=== PATIENT | male | born 1955 | race Caucasian/White ===

== ENCOUNTER 2018-01-09 13:11 | Emergency (ER) | payer MEDICARE, MEDICAID ==
[~2018-01-09] VITALS: Ht 195.6 cm; Wt 102.0 kg
[~2018-01-09 13:11] MED LIST: AMIT100T2 PO; ASPI-611 PO; ATOR40TA71 PO; CEPH500C5 PO; ESCI10TA54 PO; GABA-532 PO; INSU100V11 SQ; LANTUS SQ; LEVO175T7 PO; LISI-604 PO; LORA1TAB PO; MECL12.584 PO; OMEP20CA10 PO
[2018-01-09] MEDS ORDERED: ondansetron/PF 4mg/2ml inj IV ONE (13:40)
[2018-01-09] MEDS ORDERED: morphine 4 MG/ML inj SYRINge IV ONE (13:40)
[2018-01-09] MEDS ORDERED: iohexol 300mg/ml 100ml inj. ONE (13:45)
[2018-01-09 13:58] LABS: BASOPHILS % (AUTO) 0.5 % (0-1); EOSINOPHILS # (AUTO) 0.1 X10'3 (0-0.9); EOSINOPHILS % (AUTO) 1.1 % (0-6); HEMATOCRIT 34.3 % (42.0-52.0); HEMOGLOBIN 11.7 g/dl (14.0-17.9); LYMPHOCYTES # (AUTO) 2.4 X10'3 (1.1-4.8); LYMPHOCYTES % (AUTO) 27.4 % (21-51); MEAN CORPUSCULAR HEMOGLOBIN 28.9 PG (27.0-31.0); MEAN CORPUSCULAR HGB CONC 34.2 % (33.0-36.5); MEAN CORPUSCULAR VOLUME 84.3 FL (78-98); MEAN PLATELET VOLUME 9.4 FL (7.4-10.4); MONOCYTES # (AUTO) 0.5 X10'3 (0-0.9); MONOCYTES % (AUTO) 5.5 % (2-12); NEUTROPHILS # (AUTO) 5.7 X10'3 (1.8-7.7); NEUTROPHILS % (AUTO) 65.5 % (42-75); PLATELET COUNT 258 X10'3 (140-440); RED BLOOD COUNT 4.07 X10'6 (4.70-6.10); RED CELL DISTRIBUTION WIDTH 14.3 % (11.5-14.5); WHITE BLOOD COUNT 8.8 X10'3 (4.5-11.0)
[2018-01-09 14:08] LABS: PROTHROMBIN TIME 10.5 SECONDS (9.0-12.0)
[2018-01-09 14:13] LABS: ALANINE AMINOTRANSFERASE 21 U/L (12-78); ALBUMIN/GLOBULIN RATIO 0.8 (1.1-1.5); ALKALINE PHOSPHATASE 79 IU/L (46-116); ANION GAP 12 (8-16); ASPARTATE AMINO TRANSFERASE 13 U/L (10-37); BILIRUBIN,TOTAL 0.2 MG/DL (0.1-1.0); BLOOD UREA NITROGEN 18 MG/DL (7-18); BUN/CREATININE RATIO 11.6 (5.4-32.0); CHLORIDE 106 MMOL/L (99-107); CREATININE 1.55 MG/DL (0.60-1.10); GLUCOSE 322 MG/DL (70-104); POTASSIUM 3.6 MMOL/L (3.5-5.1); SODIUM 138 MMOL/L (135-145); TOTAL CARBON DIOXIDE 19.6 MMOL/L (24-32); TOTAL PROTEIN 6.8 G/DL (6.4-8.2); eGFR 46 ML/MIN
[2018-01-09 14:14] LABS: ETHANOL < 0.010 GM/DL (0.0-0.010)
[2018-01-09] MEDS ORDERED: MESSAGE TO NURSING PO SCH (14:40)
[2018-01-09 15:00] VITALS: BP 157/91
[2018-01-09] MEDS ORDERED: IBUP-1985 PO (15:57)
== END 2018-01-09 16:59 | disposition home or self-care (01) ==
LOC: ER 13:12
DX: S13.9XXA Sprain of joints and ligaments of unspecified parts of neck, initial encounter (principal); S70.02XA Contusion of left hip, initial encounter; E11.42 Type 2 diabetes mellitus with diabetic polyneuropathy; E78.00 Pure hypercholesterolemia, unspecified; I10 Essential (primary) hypertension; G89.29 Other chronic pain; I25.2 Old myocardial infarction; K21.9 Gastro-esophageal reflux disease without esophagitis; E03.9 Hypothyroidism, unspecified; Z85.038 Personal history of other malignant neoplasm of large intestine; Z90.49 Acquired absence of other specified parts of digestive tract; Z98.890 Other specified postprocedural states; Z90.89 Acquired absence of other organs; Z79.82 Long term (current) use of aspirin; Z79.4 Long term (current) use of insulin; Z79.899 Other long term (current) drug therapy; Z91.018 Allergy to other foods; V09.9XXA Pedestrian injured in unspecified transport accident, initial encounter; Y93.02 Activity, running; Y92.89 Other specified places as the place of occurrence of the external cause; Y99.8 Other external cause status
CPT/HCPCS: 36415; 70450; 71045; 71260; 72125; 73502; 73552; 73560; 74177; 80053; 80320; 85025; 85610; 96374; 96375; 99285; J2270; J2405; J7030; L0172; Q9967

== ENCOUNTER 2018-06-16 10:07 | Emergency (ER) | payer OTHER, MEDICARE, MEDICAID ==
[~2018-06-16] VITALS: Ht 195.6 cm; Wt 113.6 kg
[~2018-06-16 10:07] MED LIST changes: -CEPH500C5 PO; +IBUP-1985 PO
[2018-06-16] MEDS ORDERED: METH-360 PO (11:53)
[2018-06-16] MEDS ORDERED: IBUP-1985 PO (11:53)
[2018-06-16] MEDS ORDERED: orphenadrine citrate 60mg/2ml inj. IM ONE (11:55)
[2018-06-16] MEDS ORDERED: ketorolac tromethamine 15mg/ml inj. IM ONE (11:55)
[2018-06-16 15:09] VITALS: BP 169/107
[2018-06-16] MEDS ORDERED: HYDROcodone/acetaminophen 5mg/325mg tablet PO ONE (15:50)
== END 2018-06-16 16:19 | disposition home or self-care (01) ==
LOC: ER 10:08
DX: M54.2 Cervicalgia (principal); M54.5 Low back pain; I10 Essential (primary) hypertension; K21.9 Gastro-esophageal reflux disease without esophagitis; F41.9 Anxiety disorder, unspecified; F32.9 Major depressive disorder, single episode, unspecified; E03.9 Hypothyroidism, unspecified; E11.42 Type 2 diabetes mellitus with diabetic polyneuropathy; I25.2 Old myocardial infarction; Z91.02 Food additives allergy status; Z79.82 Long term (current) use of aspirin; Z79.4 Long term (current) use of insulin; Z79.899 Other long term (current) drug therapy; E78.00 Pure hypercholesterolemia, unspecified; Z85.038 Personal history of other malignant neoplasm of large intestine; Z90.49 Acquired absence of other specified parts of digestive tract; Z90.89 Acquired absence of other organs; V43.62XA Car passenger injured in collision with other type car in traffic accident, initial encounter; Y93.89 Activity, other specified; Y92.89 Other specified places as the place of occurrence of the external cause; Y99.8 Other external cause status
CPT/HCPCS: 70450; 72125; 72128; 72148; 96372; 99284; J1885; J2360

== ENCOUNTER 2018-09-29 23:28 | Emergency (ER) | payer MEDICARE, MEDICAID ==
[~2018-09-29] VITALS: Ht 195.6 cm; Wt 103.8 kg
[~2018-09-29 23:28] MED LIST changes: +METH-360 PO
[2018-09-29] MEDS ORDERED: normal saline 1000ML IV soln IVB ONE (23:50)
[2018-09-30 00:10] LABS: BASOPHILS # (AUTO) 0.1 X10'3 (0-0.2); BASOPHILS % (AUTO) 0.7 % (0-1); EOSINOPHILS # (AUTO) 0.1 X10'3 (0-0.9); EOSINOPHILS % (AUTO) 0.8 % (0-6); HEMATOCRIT 43.3 % (42.0-52.0); HEMOGLOBIN 14.4 g/dl (14.0-17.9); LYMPHOCYTES % (AUTO) 21.9 % (21-51); MEAN CORPUSCULAR HEMOGLOBIN 29.7 PG (27.0-31.0); MEAN CORPUSCULAR HGB CONC 33.2 g/dL (33.0-36.5); MEAN CORPUSCULAR VOLUME 89.5 FL (78-98); MEAN PLATELET VOLUME 9.4 FL (7.4-10.4); MONOCYTES # (AUTO) 0.5 X10'3 (0-0.9); MONOCYTES % (AUTO) 5.8 % (2-12); NEUTROPHILS # (AUTO) 6.6 X10'3 (1.8-7.7); NEUTROPHILS % (AUTO) 70.8 % (42-75); PLATELET COUNT 321 X10'3 (140-440); RED BLOOD COUNT 4.84 X10'6 (4.70-6.10); RED CELL DISTRIBUTION WIDTH 14.3 % (11.5-14.5); WHITE BLOOD COUNT 9.3 X10'3 (4.5-11.0)
[2018-09-30 00:19] LABS: ALANINE AMINOTRANSFERASE 30 U/L (12-78); ALBUMIN/GLOBULIN RATIO 0.9 (1.1-1.5); ALKALINE PHOSPHATASE 102 IU/L (46-116); ANION GAP 11 (8-16); ASPARTATE AMINO TRANSFERASE 29 U/L (10-37); BILIRUBIN,TOTAL 0.4 MG/DL (0.1-1.0); BLOOD UREA NITROGEN 29 MG/DL (7-18); BUN/CREATININE RATIO 17.8 (5.4-32.0); CALCIUM 9.1 MG/DL (8.5-10.1); CHLORIDE 98 MMOL/L (99-107); CREATININE 1.63 MG/DL (0.60-1.10); GLUCOSE 447 MG/DL (70-104); POTASSIUM 3.7 MMOL/L (3.5-5.1); SODIUM 133 MMOL/L (135-145); TOTAL CARBON DIOXIDE 23.9 MMOL/L (24-32); TOTAL PROTEIN 8.7 G/DL (6.4-8.2); eGFR 43 ML/MIN
[2018-09-30 00:54] LABS: PARTIAL THROMBOPLASTIN TIME 29 SECONDS (22-32); PROTHROMBIN TIME 10.3 SECONDS (9.0-12.0)
--- NOTE | 2018-09-30 01:53 | NUR ---
PT ON MED WAIT FOR SECOND LAYER OF FLUID. HE IS USING HIS PHONE AND BENDING HIS ELBOW CAUSING THE CATHETER TO OCCLUDE. PT EDUCATED ON KEEPIG HIS ARM STRAIGHT BUT IS STILL BENDING IT TO USE HIS PHONE.
[2018-09-30 02:05] VITALS: BP 150/94
== END 2018-09-30 02:06 | disposition home or self-care (01) ==
LOC: ER 23:29
DX: E11.65 Type 2 diabetes mellitus with hyperglycemia (principal); E11.42 Type 2 diabetes mellitus with diabetic polyneuropathy; E78.00 Pure hypercholesterolemia, unspecified; I10 Essential (primary) hypertension; I25.2 Old myocardial infarction; K21.9 Gastro-esophageal reflux disease without esophagitis; E03.9 Hypothyroidism, unspecified; G89.29 Other chronic pain; Z85.038 Personal history of other malignant neoplasm of large intestine; Z90.49 Acquired absence of other specified parts of digestive tract; Z98.890 Other specified postprocedural states; Z91.018 Allergy to other foods; Z79.82 Long term (current) use of aspirin; Z79.4 Long term (current) use of insulin; Z79.899 Other long term (current) drug therapy
CPT/HCPCS: 36415; 71045; 80053; 82948; 84484; 85025; 85610; 85730; 93005; 96360; 96361; 99284; J7030

== ENCOUNTER 2019-02-22 10:32 | Inpatient (IN) | payer MEDICARE, MEDICAID ==
[~2019-02-22] VITALS: Ht 195.6 cm; Wt 104.5 kg
[~2019-02-22 10:32] MED LIST changes: +CARV3.122 PO; +CITA10TA9 PO; +EMPA10TA PO; -ESCI10TA54 PO; -IBUP-1985 PO; -INSU100V11 SQ; -LANTUS SQ; -LISI-604 PO; -MECL12.584 PO; -METH-360 PO; -OMEP20CA10 PO; +OMEP20CA11 PO; +OXYB5TAB16 PO
[2019-02-22] MEDS ORDERED: ondansetron/PF 4mg/2ml inj IV ONE (12:15)
[2019-02-22 12:19] LABS: BASOPHILS # (AUTO) 0.1 X10'3 (0-0.2); BASOPHILS % (AUTO) 0.8 % (0-1); EOSINOPHILS % (AUTO) 0.4 % (0-6); HEMATOCRIT 44.3 % (42.0-52.0); LYMPHOCYTES # (AUTO) 1.9 X10'3 (1.1-4.8); LYMPHOCYTES % (AUTO) 22.3 % (21-51); MEAN CORPUSCULAR HEMOGLOBIN 29.8 PG (27.0-31.0); MEAN CORPUSCULAR VOLUME 87.6 FL (78-98); MEAN PLATELET VOLUME 8.9 FL (7.4-10.4); MONOCYTES # (AUTO) 0.6 X10'3 (0-0.9); MONOCYTES % (AUTO) 6.7 % (2-12); NEUTROPHILS # (AUTO) 5.8 X10'3 (1.8-7.7); NEUTROPHILS % (AUTO) 69.8 % (42-75); PLATELET COUNT 355 X10'3 (140-440); RED BLOOD COUNT 5.05 X10'6 (4.70-6.10); WHITE BLOOD COUNT 8.3 X10'3 (4.5-11.0)
[2019-02-22] MEDS ORDERED: normal saline 1000ML IV soln IVB ONE ×2 (12:20→13:50)
[2019-02-22 12:22] LABS: PARTIAL THROMBOPLASTIN TIME 28 SECONDS (22-32)
[2019-02-22 12:23] LABS: ALANINE AMINOTRANSFERASE 23 U/L (12-78); ALBUMIN/GLOBULIN RATIO 0.9 (1.1-1.5); ALKALINE PHOSPHATASE 86 IU/L (46-116); ANION GAP 16 (8-16); ASPARTATE AMINO TRANSFERASE 14 U/L (10-37); BILIRUBIN,TOTAL 0.7 MG/DL (0.1-1.0); BLOOD UREA NITROGEN 30 MG/DL (7-18); BUN/CREATININE RATIO 15.2 (5.4-32.0); CALCIUM 9.6 MG/DL (8.5-10.1); CHLORIDE 107 MMOL/L (99-107); CREATININE 1.98 MG/DL (0.60-1.10); GLUCOSE 51 MG/DL (70-104); POTASSIUM 3.7 MMOL/L (3.5-5.1); SODIUM 142 MMOL/L (135-145); TOTAL CARBON DIOXIDE 19.5 MMOL/L (24-32); TOTAL PROTEIN 8.6 G/DL (6.4-8.2); eGFR 34 ML/MIN
[2019-02-22] MEDS ORDERED: dextrose 50%-water 50ml dispensing syringe IV ONE ×2 (12:45→15:30)
--- NOTE | 2019-02-22 13:13 | NUR ---
Bell and applesauce given and pt alert and approp.
[2019-02-22 13:32] LABS: LIPASE 95 U/L (73-393)
[2019-02-22] MEDS ORDERED: ONDA4TAB12 PO (15:19)
[2019-02-22] MEDS ORDERED: dextrose 5%-normal saline 1,000 ML IV ONE ×2 (15:45→22:30)
[2019-02-22] MEDS ORDERED: ONDA4TAB11 PO (16:04)
[2019-02-22] MEDS ORDERED: GABA-530 PO (16:04)
[2019-02-22] MEDS ORDERED: ESCI20TA38 PO (16:04)
[2019-02-22] MEDS ORDERED: LIDO700A32 TOP (16:08)
[2019-02-22] MEDS ORDERED: HYDR-4353 PO (16:08)
[2019-02-22] MEDS ORDERED: LINA5TAB4 PO (16:08)
[2019-02-22] MEDS ORDERED: CYCL-1 PO (16:08)
[2019-02-22] MEDS ORDERED: MELO-102 PO (16:08)
[2019-02-22] MEDS ORDERED: NITR0.4T48 SL (16:08)
[2019-02-22] MEDS ORDERED: ondansetron/PF 4mg/2ml inj IV PRN (16:15)
[2019-02-22] MEDS ORDERED: magnesium hydroxide 30ml (MOM) UD suspension PO PRN (16:15)
[2019-02-22] MEDS ORDERED: mag hydrox/Alum hydrox/simeth 30ml oral suspension PO PRN (16:15)
[2019-02-22] MEDS ORDERED: acetaminophen 325mg tablet PO PRN (16:15)
[2019-02-22] MEDS ORDERED: LANTUS SQ (16:25)
[2019-02-22] MEDS ORDERED: INSU100V43 SQ (16:25)
[2019-02-22] MEDS ORDERED: METF-436 PO (16:25)
--- NOTE | 2019-02-22 17:41 | NUR ---
Received report from REFRIGERATOR CRATERDARY Jones, patient arrived on unit at 1730. Patient vital signs were obtained, telemetry initiated, skin check done, and patient was oriented to room. Patient is alert and oriented, has IV fluids running. Will continue to monitor
[2019-02-22 17:44] VITALS: BP 143/93
--- NOTE | 2019-02-22 17:53 | NUR ---
PAGER ID: [phone] MESSAGE: Jose Cruz Preciado. Patient takes Oracle at home for pain. Patient has 8/10 pain can we please get an order for Oracle. Meli [phone]
--- NOTE | 2019-02-22 18:00 | NUR ---
Patient in room PCU 3020. I have received report from DARY Garrison and had the opportunity to ask questions and assume patient care.
--- NOTE | 2019-02-22 18:24 | NUR ---
Orientee documentation: I have reviewed and agree with interventions, assessments performed and documented by Roz FOOTE. Orientee Medication Administration: For this medication-pass time frame, medication were reviewed, dispensed, administered and documented per hospital policy by Roz FOOTE.
[2019-02-22] MEDS ORDERED: cyclobenzaprine 10mg tablet PO PRN (18:30)
[2019-02-22] MEDS ORDERED: LORazepam 1 MG tablet PO PRN (18:30)
[2019-02-22] MEDS ORDERED: ondansetron 4mg rapidly disintigrating tab PO PRN (18:30)
[2019-02-22 19:00] VITALS: BP 137/70
[2019-02-22] MEDS: carVEDilol 3.125mg tablet PO SCH (20:10)
[2019-02-22] MEDS: heparin, porcine 5000 units/ml vial SQ SCH (20:10)
[2019-02-22] MEDS: amitriptyline 50mg tablet PO SCH (20:11)
[2019-02-22] MEDS: nitroGLYCERIN 0.4mg SUBLingual tab SL PRN ×2 (20:40→22:43)
[2019-02-22] MEDS: HYDROcodone/acetaminophen 10/325mg tab PO PRN (22:44)
--- NOTE | 2019-02-22 22:46 | NUR ---
I informed doctor Baker of this patient's blood sugar of 196. He is on D4NS @ 100mL/hr. I asked doctor Baker if he would like to take the patient off of D5NS and place him on the diabetes protocol. He gave me an order to decrease the patient's fluids to 50 mL/hr and does not want to place him on protocol at this time.
[2019-02-22 23:00] VITALS: BP 11/63
[2019-02-22] MEDS: gabapentin 100mg capsule PO SCH (23:17)
[2019-02-23] VITALS (11 sets, daily range): BP systolic 74–111; BP diastolic 40–72
[2019-02-23 00:52] LABS: BASOPHILS % (AUTO) 0.4 % (0-1); EOSINOPHILS # (AUTO) 0.1 X10'3 (0-0.9); EOSINOPHILS % (AUTO) 0.8 % (0-6); HEMATOCRIT 38.6 % (42.0-52.0); LYMPHOCYTES # (AUTO) 3.2 X10'3 (1.1-4.8); LYMPHOCYTES % (AUTO) 32.9 % (21-51); MEAN CORPUSCULAR HEMOGLOBIN 29.6 PG (27.0-31.0); MEAN CORPUSCULAR HGB CONC 33.7 g/dL (33.0-36.5); MEAN CORPUSCULAR VOLUME 87.9 FL (78-98); MONOCYTES # (AUTO) 0.8 X10'3 (0-0.9); MONOCYTES % (AUTO) 8.6 % (2-12); NEUTROPHILS # (AUTO) 5.7 X10'3 (1.8-7.7); NEUTROPHILS % (AUTO) 57.3 % (42-75); PLATELET COUNT 308 X10'3 (140-440); RED BLOOD COUNT 4.39 X10'6 (4.70-6.10); WHITE BLOOD COUNT 9.9 X10'3 (4.5-11.0)
[2019-02-23 00:59] LABS: ALBUMIN 3.1 G/DL (3.4-5.0); ANION GAP 14 (8-16); BLOOD UREA NITROGEN 34 MG/DL (7-18); BUN/CREATININE RATIO 19.4 (5.4-32.0); CALCIUM 8.3 MG/DL (8.5-10.1); CHLORIDE 105 MMOL/L (99-107); CREATININE 1.75 MG/DL (0.60-1.10); GLUCOSE 183 MG/DL (70-104); POTASSIUM 3.4 MMOL/L (3.5-5.1); SODIUM 143 MMOL/L (135-145); TOTAL CARBON DIOXIDE 23.8 MMOL/L (24-32); eGFR 40 ML/MIN
--- NOTE | 2019-02-23 03:11 | NUR ---
Could not edit previous D5NS @ 100 mL/hr q10hr once order, so, I put in a new order for D5NS 50 mL/hr once. I double clicked it to administer and will dc the order after this current bag is complete.
--- NOTE | 2019-02-23 05:00 | NUR ---
Patient has been having low BP's but after retaking them it goes up to a normal range. Upon having the patient sit his BP dropped to 74/48 (56), laying was 107/64 (71). Upon trying to have patient stand he became too dizzy and had to sit down. Could not obtain standing BP. Will pass this information to daysinft nurse.
--- NOTE | 2019-02-23 06:24 | NUR ---
Problems reprioritized. Patient report given, questions answered & plan of care reviewed with DARY Tovar.
--- NOTE | 2019-02-23 06:30 | NUR ---
Patient in room PCU 3017. I have received report from Marguerite FOOTE and had the opportunity to ask questions and assume patient care.
[2019-02-23] MEDS: carVEDilol 3.125mg tablet PO SCH ×2 (07:35→21:36)
[2019-02-23] MEDS: levoTHYROXINE 175mcg tablet PO SCH (07:35)
[2019-02-23] MEDS: gabapentin 100mg capsule PO SCH ×2 (07:35→16:38)
[2019-02-23] MEDS: citalopram 20mg tablet PO SCH (07:35)
[2019-02-23] MEDS: aspirin 81mg tablet.DR PO SCH (07:36)
[2019-02-23] MEDS: atorvastatin 20mg tablet PO SCH (07:36)
[2019-02-23] MEDS: heparin, porcine 5000 units/ml vial SQ SCH ×2 (07:38→21:36)
[2019-02-23] MEDS ORDERED: dextrose 5%-normal saline 1,000 ML IV SCH ×2 (07:45→18:00)
--- NOTE | 2019-02-23 07:58 | NUR ---
Page Dr. Chavarria PAGER ID: [phone] MESSAGE: RM 3020 Timothy Billingsley: Patients K is 3.4, can we order replacement? Thank you. Johanna stokes [phone]
[2019-02-23] MEDS ORDERED: potassium Cl 20 mEq SR tablet PO PRN (08:00)
[2019-02-23] MEDS ORDERED: magnesium 4gm in 100ml NS 100 ML IV PRN (08:00)
[2019-02-23] MEDS ORDERED: potassium CL 10mEq/100ml bag 100 ML IV PRN (08:00)
[2019-02-23] MEDS ORDERED: magnesium Cl slow-release 64mg tablet PO PRN (08:00)
[2019-02-23] MEDS: potassium Cl 20 mEq SR tablet PO PRN ×3 (08:39→16:38)
[2019-02-23] MEDS: HYDROcodone/acetaminophen 10/325mg tab PO PRN ×2 (11:24→19:59)
[2019-02-23] MEDS: normal saline 1000ml 1,000 ML IV SCH (12:42)
--- NOTE | 2019-02-23 18:03 | NUR ---
Orientee documentation: I have reviewed and agree with all interventions, assessments performed and documented by Johanna FOOTE. Orientee Medication Administration: For this medication-pass time frame, all medication were reviewed, dispensed, administered and documented per hospital policy by Johanna FOOTE.
--- NOTE | 2019-02-23 18:40 | NUR ---
Problems reprioritized. Patient report given, questions answered & plan of care reviewed with Shana FOOTE.
--- NOTE | 2019-02-23 19:00 | NUR ---
Patient in room PCU 3020. I have received report from La FOOTE and had the opportunity to ask questions and assume patient care. Patient finishing dinner, will continue to monitor.
[2019-02-23] MEDS: amitriptyline 50mg tablet PO SCH (21:37)
[2019-02-24] VITALS (7 sets, daily range): BP systolic 90–127; BP diastolic 60–73
[2019-02-24] MEDS: gabapentin 100mg capsule PO SCH ×3 (00:05→16:19)
[2019-02-24] MEDS: normal saline 1000ml 1,000 ML IV SCH ×2 (01:38→15:26)
--- NOTE | 2019-02-24 06:05 | NUR ---
Problems reprioritized. Patient report given, questions answered & plan of care reviewed with La FOOTE.
[2019-02-24 06:09] LABS: BASOPHILS # (AUTO) 0.1 X10'3 (0-0.2); EOSINOPHILS # (AUTO) 0.2 X10'3 (0-0.9); EOSINOPHILS % (AUTO) 2.8 % (0-6); HEMATOCRIT 34.8 % (42.0-52.0); HEMOGLOBIN 11.9 g/dl (14.0-17.9); LYMPHOCYTES # (AUTO) 3.2 X10'3 (1.1-4.8); LYMPHOCYTES % (AUTO) 48.9 % (21-51); MEAN CORPUSCULAR HEMOGLOBIN 29.8 PG (27.0-31.0); MEAN CORPUSCULAR HGB CONC 34.2 g/dL (33.0-36.5); MEAN CORPUSCULAR VOLUME 87.1 FL (78-98); MEAN PLATELET VOLUME 8.9 FL (7.4-10.4); MONOCYTES # (AUTO) 0.5 X10'3 (0-0.9); MONOCYTES % (AUTO) 8.4 % (2-12); NEUTROPHILS # (AUTO) 2.5 X10'3 (1.8-7.7); NEUTROPHILS % (AUTO) 38.9 % (42-75); PLATELET COUNT 237 X10'3 (140-440); RED CELL DISTRIBUTION WIDTH 14.9 % (11.5-14.5); WHITE BLOOD COUNT 6.5 X10'3 (4.5-11.0)
--- NOTE | 2019-02-24 06:21 | NUR ---
Patient in room PCU 3020. I have received report from Nury FOOTE and had the opportunity to ask questions and assume patient care.
[2019-02-24 06:25] LABS: ALBUMIN 2.8 G/DL (3.4-5.0); ANION GAP 9 (8-16); BLOOD UREA NITROGEN 20 MG/DL (7-18); BUN/CREATININE RATIO 18.5 (5.4-32.0); CALCIUM 8.2 MG/DL (8.5-10.1); CHLORIDE 110 MMOL/L (99-107); CREATININE 1.08 MG/DL (0.60-1.10); GLUCOSE 124 MG/DL (70-104); POTASSIUM 4.2 MMOL/L (3.5-5.1); SODIUM 142 MMOL/L (135-145); TOTAL CARBON DIOXIDE 22.8 MMOL/L (24-32); eGFR 69 ML/MIN
[2019-02-24] MEDS: HYDROcodone/acetaminophen 10/325mg tab PO PRN (07:11)
[2019-02-24] MEDS: aspirin 81mg tablet.DR PO SCH (07:12)
[2019-02-24] MEDS: atorvastatin 20mg tablet PO SCH (07:12)
[2019-02-24] MEDS: carVEDilol 3.125mg tablet PO SCH ×2 (07:12→20:44)
[2019-02-24] MEDS: citalopram 20mg tablet PO SCH (07:12)
[2019-02-24] MEDS: levoTHYROXINE 175mcg tablet PO SCH (07:12)
[2019-02-24] MEDS: heparin, porcine 5000 units/ml vial SQ SCH ×2 (07:13→20:46)
--- NOTE | 2019-02-24 10:43 | NUR ---
Page Dr. Chavarria. PAGER ID: [phone] MESSAGE: [id number] Timothy Billingsley: Patients blood sugar was 192, current orders are to accucheck q2h. Do you want to put him on protocol? Thank you. Johanna [phone].
[2019-02-24] MEDS ORDERED: acetaminophen 325mg tablet PO PRN (16:35)
--- NOTE | 2019-02-24 18:18 | NUR ---
Patient in room PCU 3020. I have received report from DARY Tovar and DARY Spencer and had the opportunity to ask questions and assume patient care.
--- NOTE | 2019-02-24 18:19 | NUR ---
Problems reprioritized. Patient report given, questions answered & plan of care reviewed with Yahaira FOOTE.
[2019-02-24] MEDS: amitriptyline 50mg tablet PO SCH (20:44)
[2019-02-25] MEDS: gabapentin 100mg capsule PO SCH ×2 (00:52→07:49)
[2019-02-25 03:00] VITALS: BP 111/67
[2019-02-25] MEDS: normal saline 1000ml 1,000 ML IV SCH (05:59)
[2019-02-25 06:00] VITALS: BP 132/84
[2019-02-25 06:03] LABS: BASOPHILS # (AUTO) 0.1 X10'3 (0-0.2); BASOPHILS % (AUTO) 1.3 % (0-1); EOSINOPHILS # (AUTO) 0.2 X10'3 (0-0.9); HEMATOCRIT 36.7 % (42.0-52.0); HEMOGLOBIN 12.5 g/dl (14.0-17.9); LYMPHOCYTES # (AUTO) 2.6 X10'3 (1.1-4.8); LYMPHOCYTES % (AUTO) 45.1 % (21-51); MEAN CORPUSCULAR HEMOGLOBIN 29.8 PG (27.0-31.0); MEAN CORPUSCULAR VOLUME 87.6 FL (78-98); MEAN PLATELET VOLUME 8.8 FL (7.4-10.4); MONOCYTES # (AUTO) 0.5 X10'3 (0-0.9); MONOCYTES % (AUTO) 8.9 % (2-12); NEUTROPHILS # (AUTO) 2.4 X10'3 (1.8-7.7); NEUTROPHILS % (AUTO) 41.7 % (42-75); PLATELET COUNT 235 X10'3 (140-440); RED BLOOD COUNT 4.19 X10'6 (4.70-6.10); WHITE BLOOD COUNT 5.8 X10'3 (4.5-11.0)
[2019-02-25 06:11] LABS: ALBUMIN 2.9 G/DL (3.4-5.0); ANION GAP 7 (8-16); BLOOD UREA NITROGEN 19 MG/DL (7-18); BUN/CREATININE RATIO 15.4 (5.4-32.0); CALCIUM 8.3 MG/DL (8.5-10.1); CHLORIDE 109 MMOL/L (99-107); CREATININE 1.23 MG/DL (0.60-1.10); GLUCOSE 134 MG/DL (70-104); POTASSIUM 4.4 MMOL/L (3.5-5.1); SODIUM 141 MMOL/L (135-145); TOTAL CARBON DIOXIDE 25.1 MMOL/L (24-32); eGFR 59 ML/MIN
--- NOTE | 2019-02-25 06:15 | NUR ---
Problems reprioritized. Patient report given, questions answered & plan of care reviewed with DARY Spencer.
--- NOTE | 2019-02-25 06:23 | NUR ---
Patient in room PCU 3020. I have received report from Yahaira FOOTE and had the opportunity to ask questions and assume patient care.
[2019-02-25] MEDS: atorvastatin 20mg tablet PO SCH (07:50)
[2019-02-25] MEDS: citalopram 20mg tablet PO SCH (07:50)
[2019-02-25] MEDS: levoTHYROXINE 175mcg tablet PO SCH (07:50)
[2019-02-25] MEDS: carVEDilol 3.125mg tablet PO SCH (07:50)
[2019-02-25] MEDS: aspirin 81mg tablet.DR PO SCH (07:50)
[2019-02-25] MEDS: heparin, porcine 5000 units/ml vial SQ SCH (07:51)
[2019-02-25 08:00] VITALS: BP_SYST 115; BP_SYST 117; BP_SYST 123; BP_DIAS 71; BP_DIAS 75; BP_DIAS 83
[2019-02-25 11:00] VITALS: BP 117/71
[2019-02-25] MEDS ORDERED: LORA1TAB PO (12:00)
[2019-02-25] MEDS ORDERED: LANTUS SQ (12:00)
[2019-02-25] MEDS ORDERED: METF-436 PO (12:00)
--- NOTE | 2019-02-25 14:40 | NUR ---
Patient stable for discharge per MD orders. All discharge instructions reviewed with patient and all questions answered. New prescriptions called into patients preferred pharmacy. PIV & monitor worker discontinued. Belongings collected and sent with patient. Patient home in private vehicle. Patient wheeled to lobby by primary RN.
== END 2019-02-25 14:58 | disposition home health service (06) | DRG 392 ==
LOC: ER 10:32 → PCU 3S 17:22 → OBSVTOIN 17:22 → CMPBEDREQ 19:43
PROVIDERS: ADMIT Family Medicine; ATTEND Internal Medicine
DX: K52.9 Noninfective gastroenteritis and colitis, unspecified (principal); N17.9 Acute kidney failure, unspecified; E87.6 Hypokalemia; E11.649 Type 2 diabetes mellitus with hypoglycemia without coma; E11.22 Type 2 diabetes mellitus with diabetic chronic kidney disease; E11.42 Type 2 diabetes mellitus with diabetic polyneuropathy; E78.00 Pure hypercholesterolemia, unspecified; E78.5 Hyperlipidemia, unspecified; E86.0 Dehydration; E86.9 Volume depletion, unspecified; E89.0 Postprocedural hypothyroidism; G89.29 Other chronic pain; M54.9 Dorsalgia, unspecified; R07.89 Other chest pain; F32.9 Major depressive disorder, single episode, unspecified; F41.9 Anxiety disorder, unspecified; I12.9 Hypertensive chronic kidney disease with stage 1 through stage 4 chronic kidney disease, or unspecified chronic kidney disease; K21.9 Gastro-esophageal reflux disease without esophagitis; N18.9 Chronic kidney disease, unspecified; Z79.4 Long term (current) use of insulin; Z79.899 Other long term (current) drug therapy; Z85.038 Personal history of other malignant neoplasm of large intestine; Z85.6 Personal history of leukemia; Z85.850 Personal history of malignant neoplasm of thyroid; Z91.018 Allergy to other foods; Z90.49 Acquired absence of other specified parts of digestive tract; Z82.49 Family history of ischemic heart disease and other diseases of the circulatory system; Z80.41 Family history of malignant neoplasm of ovary
CPT/HCPCS: 36415; 71045; 80048; 80053; 82948; 83690; 84484; 85025; 85610; 85730; 87081; 93005; 96361; 96374; 96375; 96376; 97162; 97530; 99285; G0378; J1644; J2405; J7030; J7042

== ENCOUNTER 2019-04-20 20:44 | Observation (INO) | payer MEDICARE, MEDICAID ==
[~2019-04-20] VITALS: Ht 195.6 cm; Wt 117.0 kg
[~2019-04-20 20:44] MED LIST changes: -CITA10TA9 PO; -EMPA10TA PO; +ESCI20TA38 PO; +GABA-530 PO; -GABA-532 PO; +INSU100V43 SQ; +LANTUS SQ; +METF-436 PO; +NITR0.4T48 SL; -OMEP20CA11 PO; +ONDA4TAB11 PO; -OXYB5TAB16 PO
[2019-04-20] MEDS ORDERED: ketorolac tromethamine 15mg/ml inj. IM ONE (21:50)
[2019-04-20] MEDS ORDERED: cyclobenzaprine 10mg tablet PO ONE (21:50)
[2019-04-20 22:04] LABS: BASOPHILS # (AUTO) 0.1 X10'3 (0-0.2); BASOPHILS % (AUTO) 0.4 % (0-1); EOSINOPHILS # (AUTO) 0.3 X10'3 (0-0.9); HEMATOCRIT 41.6 % (42.0-52.0); HEMOGLOBIN 14.1 g/dl (14.0-17.9); LYMPHOCYTES # (AUTO) 5.9 X10'3 (1.1-4.8); LYMPHOCYTES % (AUTO) 37.1 % (21-51); MEAN CORPUSCULAR HEMOGLOBIN 30.1 PG (27.0-31.0); MEAN CORPUSCULAR HGB CONC 33.9 g/dL (33.0-36.5); MEAN CORPUSCULAR VOLUME 88.8 FL (78-98); MEAN PLATELET VOLUME 8.2 FL (7.4-10.4); MONOCYTES % (AUTO) 6.5 % (2-12); NEUTROPHILS # (AUTO) 8.6 X10'3 (1.8-7.7); PLATELET COUNT 365 X10'3 (140-440); RED BLOOD COUNT 4.69 X10'6 (4.70-6.10); RED CELL DISTRIBUTION WIDTH 14.9 % (11.5-14.5); WHITE BLOOD COUNT 15.8 X10'3 (4.5-11.0)
[2019-04-20 22:19] LABS: ALANINE AMINOTRANSFERASE 37 U/L (12-78); ALBUMIN 3.9 G/DL (3.4-5.0); ALBUMIN/GLOBULIN RATIO 0.8 (1.1-1.5); ALKALINE PHOSPHATASE 100 IU/L (46-116); ANION GAP 12 (8-16); ASPARTATE AMINO TRANSFERASE 34 U/L (10-37); BILIRUBIN,TOTAL 0.3 MG/DL (0.1-1.0); BLOOD UREA NITROGEN 30 MG/DL (7-18); BUN/CREATININE RATIO 21.4 (5.4-32.0); CALCIUM 9.1 MG/DL (8.5-10.1); CHLORIDE 109 MMOL/L (99-107); POTASSIUM 3.5 MMOL/L (3.5-5.1); SODIUM 145 MMOL/L (135-145); TOTAL CARBON DIOXIDE 24.1 MMOL/L (24-32); TOTAL PROTEIN 8.9 G/DL (6.4-8.2); eGFR 51 ML/MIN
[2019-04-20 22:26] LABS: GLUCOSE 36 MG/DL (70-104)
[2019-04-20] MEDS ORDERED: dextrose 50%-water 50ml dispensing syringe IV ONE ×3 (22:29→23:40)
[2019-04-20] MEDS ORDERED: dextrose ORAL solution 15 GM/59 ML bottle PO ONE (22:30)
[2019-04-20] MEDS ORDERED: normal saline 1000ML IV soln IVB ONE (23:15)
[2019-04-21] VITALS (8 sets, daily range): BP systolic 103–150; BP diastolic 57–93
[2019-04-21] MEDS ORDERED: sodium bicarbonate (8.4%) inj. 100 MEQ in dextrose 5%-water 900 ML IV ONE (00:25)
[2019-04-21] MEDS ORDERED: sodium bicarbonate (8.4%) inj. 100 MEQ in dextrose 5%-water 1,000 ML IV ONE (00:28)
[2019-04-21] MEDS ORDERED: Dextrose 10%-water IV solution 1,000 ML IV ONE (00:40)
[2019-04-21] MEDS ORDERED: LINA5TAB4 (00:57)
[2019-04-21] MEDS ORDERED: LORA-268 (00:57)
[2019-04-21] MEDS ORDERED: METF-438 PO (00:57)
[2019-04-21] MEDS ORDERED: ondansetron/PF 4mg/2ml inj IV PRN (01:25)
[2019-04-21] MEDS ORDERED: HYDROcodone/acetaminophen 5mg/325mg tablet PO PRN (01:25)
[2019-04-21] MEDS ORDERED: mag hydrox/Alum hydrox/simeth 30ml oral suspension PO PRN (01:25)
[2019-04-21] MEDS ORDERED: acetaminophen 325mg tablet PO PRN ×2 (01:25)
[2019-04-21] MEDS ORDERED: dextrose ORAL solution 15 GM/59 ML bottle PO PRN ×2 (01:25)
[2019-04-21] MEDS ORDERED: glucagon, human recombinant 1mg kit SUBCUT PRN (01:25)
[2019-04-21] MEDS ORDERED: MESSAGE TO PHARMACY PO ONE (01:25)
[2019-04-21] MEDS ORDERED: dextrose 50%-water 50ml dispensing syringe IV PRN ×2 (01:25)
[2019-04-21] MEDS ORDERED: dextrose 50%-water 50ml dispensing syringe IV ONE (01:28)
[2019-04-21] MEDS: dextrose 5%-1/2 normal saline 1,000 ML IV SCH ×2 (01:40→14:13)
[2019-04-21 01:49] LABS: HEMOGLOBIN A1C 9.3 % (4.5-6.2)
[2019-04-21] MEDS ORDERED: ondansetron 4mg rapidly disintigrating tab PO PRN (02:00)
[2019-04-21] MEDS: HYDROcodone/acetaminophen 10/325mg tab PO PRN ×3 (03:21→13:12)
--- NOTE | 2019-04-21 03:47 | NUR ---
Patient in room PCU 3012. I have received report from Francisco J FOOTE and had the opportunity to ask questions and assume patient care.
[2019-04-21] MEDS ORDERED: pneumococcal 23-VAL P-sac vacc 25 mcg/0.5ml vial IMVAC ONE (05:25)
[2019-04-21] MEDS ORDERED: FLU VACC QS2019-20 36MOS UP/PF 60 MCG/0.5 ML SYRINGE IMVAC ONE (05:25)
--- NOTE | 2019-04-21 06:11 | NUR ---
Orientee documentation: I have reviewed and agree with all interventions, assessments performed and documented by Fer FOOTE.
--- NOTE | 2019-04-21 06:11 | NUR ---
Problems reprioritized. Patient report given, questions answered & plan of care reviewed with Meli FOOTE.
[2019-04-21] MEDS: enoxaparin 40mg/0.4ml syringe SQ SCH (07:28)
[2019-04-21] MEDS: levoTHYROXINE 175mcg tablet PO SCH (07:29)
[2019-04-21] MEDS: carVEDilol 3.125mg tablet PO SCH ×2 (07:30→21:17)
[2019-04-21] MEDS: atorvastatin 20mg tablet PO SCH (07:34)
[2019-04-21] MEDS: aspirin 81mg tablet.DR PO SCH (07:35)
[2019-04-21] MEDS: gabapentin 100mg capsule PO SCH ×2 (07:36→15:15)
[2019-04-21] MEDS: ESCITALOPRAM OXALATE 5 MG TABLET PO SCH (13:03)
--- NOTE | 2019-04-21 16:09 | NUR ---
DM consult: Pt with A1c 9.3 down from 12.4 in January of this year per records. Pt seen at bedside states he hasn't made any significant changes to better manage his DM. Pt states he takes his DM meds per rx and tries to walk when he can for exercise. Pt provided with written and verbal DM education with referral to outpatient DM class and RD contact information. Pt expressed enthusiasm about attending outpatient class with CDEs. Pt currently on CHO controlled diet documented with 100% PO intake likely meeting nutrient needs. Pt agrees to double protein TID for satiety, d/w dietary. Pt states he is allergic to strawberries and chocolate and denies any difficulty chewing or swallowing. [facility] 04/19, pt requests power pudding with dinner tonight, d/w dietary. Will continue to follow. Addendum: 04/21/19 at [address] Amended: Links added.
--- NOTE | 2019-04-21 18:02 | NUR ---
Problems reprioritized. Patient report given, questions answered & plan of care reviewed with
--- NOTE | 2019-04-21 18:03 | NUR ---
Student documentation: I have reviewed and agree with all interventions, assessments, performed and medications documented by Deepak RN.
--- NOTE | 2019-04-21 18:16 | NUR ---
Patient in room PCU 3012. I have received report from Meli FOOTE and had the opportunity to ask questions and assume patient care.
[2019-04-21] MEDS ORDERED: tamsulosin 0.4mg capsule PO SCH (21:00)
[2019-04-21] MEDS ORDERED: amitriptyline 50mg tablet PO SCH (21:00)
[2019-04-22] MEDS: gabapentin 100mg capsule PO SCH ×2 (00:07→07:54)
[2019-04-22 02:00] VITALS: BP 97/73
[2019-04-22 05:24] LABS: BASOPHILS % (AUTO) 0.5 % (0-1); EOSINOPHILS # (AUTO) 0.2 X10'3 (0-0.9); EOSINOPHILS % (AUTO) 2.2 % (0-6); HEMATOCRIT 34.6 % (42.0-52.0); HEMOGLOBIN 11.7 g/dl (14.0-17.9); LYMPHOCYTES # (AUTO) 2.6 X10'3 (1.1-4.8); LYMPHOCYTES % (AUTO) 28.3 % (21-51); MEAN CORPUSCULAR HEMOGLOBIN 30.2 PG (27.0-31.0); MEAN CORPUSCULAR HGB CONC 33.9 g/dL (33.0-36.5); MEAN CORPUSCULAR VOLUME 89.3 FL (78-98); MEAN PLATELET VOLUME 8.7 FL (7.4-10.4); MONOCYTES # (AUTO) 0.8 X10'3 (0-0.9); MONOCYTES % (AUTO) 8.3 % (2-12); NEUTROPHILS # (AUTO) 5.5 X10'3 (1.8-7.7); NEUTROPHILS % (AUTO) 60.7 % (42-75); PLATELET COUNT 260 X10'3 (140-440); RED BLOOD COUNT 3.88 X10'6 (4.70-6.10); RED CELL DISTRIBUTION WIDTH 14.6 % (11.5-14.5); WHITE BLOOD COUNT 9.1 X10'3 (4.5-11.0)
[2019-04-22 05:35] LABS: ALBUMIN 2.9 G/DL (3.4-5.0); ANION GAP 6 (8-16); BLOOD UREA NITROGEN 28 MG/DL (7-18); BUN/CREATININE RATIO 22.6 (5.4-32.0); CALCIUM 7.8 MG/DL (8.5-10.1); CHLORIDE 105 MMOL/L (99-107); CREATININE 1.24 MG/DL (0.60-1.10); GLUCOSE 222 MG/DL (70-104); POTASSIUM 4.6 MMOL/L (3.5-5.1); SODIUM 138 MMOL/L (135-145); eGFR 59 ML/MIN
[2019-04-22] MEDS: dextrose 5%-1/2 normal saline 1,000 ML IV SCH ×2 (05:50→06:44)
[2019-04-22 06:00] VITALS: BP 107/65
--- NOTE | 2019-04-22 06:11 | NUR ---
Problems reprioritized. Patient report given, questions answered & plan of care reviewed with Bon FOOTE.
[2019-04-22] MEDS: aspirin 81mg tablet.DR PO SCH (07:53)
[2019-04-22] MEDS: carVEDilol 3.125mg tablet PO SCH (07:54)
[2019-04-22] MEDS: levoTHYROXINE 175mcg tablet PO SCH (07:54)
[2019-04-22] MEDS: atorvastatin 20mg tablet PO SCH (07:54)
[2019-04-22] MEDS: ESCITALOPRAM OXALATE 5 MG TABLET PO SCH (07:55)
[2019-04-22] MEDS: enoxaparin 40mg/0.4ml syringe SQ SCH (07:57)
[2019-04-22] MEDS: HYDROcodone/acetaminophen 10/325mg tab PO PRN (07:58)
[2019-04-22 08:00] VITALS: BP_SYST 100; BP_SYST 102; BP_SYST 115; BP_DIAS 58; BP_DIAS 71; BP_DIAS 75
--- NOTE | 2019-04-22 08:15 | NUR ---
Notified of MRSA+ nares result. PAGER ID: [phone] MESSAGE: [id number] Rupa Billingsley MRSA+ nares. FYI. 0392 Veena Crockett
--- NOTE | 2019-04-22 10:01 | NUR ---
Per Dr Spencer, d/c IVF. FSBG 1-2 hrs until FSBG stable, then likely to discharge. Notified primary RN. IVF stopped. Pt walking with PT.
[2019-04-22] MEDS ORDERED: HYDR-4383 PO (10:46)
[2019-04-22] MEDS ORDERED: FLO0.4C PO (10:46)
--- NOTE | 2019-04-22 10:53 | NUR ---
Dr Tj reyes with DCing with blood sugar at 307.
[2019-04-22 11:00] VITALS: BP 93/64
--- NOTE | 2019-04-22 11:10 | NUR ---
Ride to pick-up patient will not arrive until 1500 per patient.
--- NOTE | 2019-04-22 13:29 | NUR ---
PAGER ID: [phone] MESSAGE: [id number] Timothy Jose Cruz I saw on the discharge meds you put [place]'s 5's. Can I get script from you for the patient? His ride will be here at 1500. DARY Crockett Ext [phone]
--- NOTE | 2019-04-22 14:32 | NUR ---
PAGER ID: [phone] MESSAGE: [id number] Timothy Billingsley can he get [place] script from you? I see you wrote that under new discharge meds. DARY Crockett Ext [phone]
--- NOTE | 2019-04-22 14:35 | NUR ---
Discharged. PIV taken out and tele off and returned. Educated on meds, follow-up and DM survival skills mainly hypoglycemia management. Walked out to front [facility] and ride will pick him up. Stable for DC per MD. Addendum: 04/22/19 at 1506 by Bon Lee RN Flomax prescription sent electronically [facility] [address]. Addendum: 04/22/19 at 1507 by Bon Lee RN Left with belongings.
== END 2019-04-22 15:44 | disposition home health service (06) ==
LOC: ER 20:45 → ED HOLD 04-21 01:46 → EDBEDREQ 04-21 01:50 → CMPBEDREQ 04-21 02:52 → PCU 3S 04-21 03:04
PROVIDERS: ADMIT Hospitalist; ATTEND Family Medicine
DX: M54.5 Low back pain (principal); G89.29 Other chronic pain; E11.649 Type 2 diabetes mellitus with hypoglycemia without coma; E11.42 Type 2 diabetes mellitus with diabetic polyneuropathy; F41.9 Anxiety disorder, unspecified; F32.9 Major depressive disorder, single episode, unspecified; E03.9 Hypothyroidism, unspecified; E78.00 Pure hypercholesterolemia, unspecified; I10 Essential (primary) hypertension; R42 Dizziness and giddiness; K21.9 Gastro-esophageal reflux disease without esophagitis; Z79.82 Long term (current) use of aspirin; Z79.899 Other long term (current) drug therapy; Z85.038 Personal history of other malignant neoplasm of large intestine; Z23 Encounter for immunization
CPT/HCPCS: 36415; 71046; 72100; 80048; 80053; 82948; 83036; 83605; 85025; 87081; 90732; 93005; 96361; 96372; 96374; 96376; 97110; 97116; 97163; 99284; G0008; G0009; G0378; J1885; Q2037; J1650

== ENCOUNTER 2019-05-17 10:17 | Inpatient (IN) | payer MEDICARE, MEDICAID ==
[~2019-05-17] VITALS: Ht 195.6 cm; Wt 113.6 kg
[~2019-05-17 10:17] MED LIST changes: +FLO0.4C PO; +HYDR-4383 PO; -INSU100V43 SQ; -LANTUS SQ; -LORA1TAB PO; -METF-436 PO; +METF-438 PO; -NITR0.4T48 SL
--- NOTE | 2019-05-17 10:34 | NUR ---
came to er saying he felt his blood surger was low blood sugar checked 49 notified wanted juice to be given
--- NOTE | 2019-05-17 10:47 | NUR ---
rechecked bs 44
[2019-05-17] MEDS ORDERED: ondansetron/PF 4mg/2ml inj IV ONE (10:55)
[2019-05-17] MEDS ORDERED: dextrose 50%-water 50ml dispensing syringe IV ONE ×2 (10:55→12:40)
[2019-05-17 11:20] LABS: BASOPHILS # (AUTO) 0.1 X10'3 (0-0.2); BASOPHILS % (AUTO) 0.7 % (0-1); EOSINOPHILS # (AUTO) 0.2 X10'3 (0-0.9); EOSINOPHILS % (AUTO) 1.5 % (0-6); HEMATOCRIT 32.7 % (42.0-52.0); LYMPHOCYTES # (AUTO) 4.3 X10'3 (1.1-4.8); LYMPHOCYTES % (AUTO) 41.8 % (21-51); MEAN CORPUSCULAR HEMOGLOBIN 29.7 PG (27.0-31.0); MEAN CORPUSCULAR HGB CONC 33.7 g/dL (33.0-36.5); MEAN CORPUSCULAR VOLUME 88.1 FL (78-98); MEAN PLATELET VOLUME 8.6 FL (7.4-10.4); MONOCYTES # (AUTO) 0.7 X10'3 (0-0.9); MONOCYTES % (AUTO) 7.1 % (2-12); NEUTROPHILS % (AUTO) 48.9 % (42-75); PLATELET COUNT 276 X10'3 (140-440); RED BLOOD COUNT 3.72 X10'6 (4.70-6.10); RED CELL DISTRIBUTION WIDTH 14.4 % (11.5-14.5); WHITE BLOOD COUNT 10.2 X10'3 (4.5-11.0)
--- NOTE | 2019-05-17 11:20 | NUR ---
KIKA DELATORRE SAID IS WAS OK TO FEED PATIENT: ETELVINA ANAND BS 122 AFTER AMP OF D50. PATIENT PROVIDED 240 ML WHOLE MILK AND A SANDWHICH: PATIENT DRINKING THE MILK
[2019-05-17 11:30] LABS: ALANINE AMINOTRANSFERASE 28 U/L (12-78); ALBUMIN/GLOBULIN RATIO 0.7 (1.1-1.5); ALKALINE PHOSPHATASE 89 IU/L (46-116); ANION GAP 11 (8-16); ASPARTATE AMINO TRANSFERASE 27 U/L (10-37); BILIRUBIN,TOTAL 0.2 MG/DL (0.1-1.0); BLOOD UREA NITROGEN 29 MG/DL (7-18); CALCIUM 8.2 MG/DL (8.5-10.1); CHLORIDE 107 MMOL/L (99-107); CREATININE 1.16 MG/DL (0.60-1.10); MAGNESIUM 1.5 MG/DL (1.5-2.4); SODIUM 142 MMOL/L (135-145); TOTAL CARBON DIOXIDE 23.7 MMOL/L (24-32); TOTAL PROTEIN 7.2 G/DL (6.4-8.2); eGFR 64 ML/MIN
[2019-05-17 11:31] LABS: GLUCOSE 30 MG/DL (70-104); POTASSIUM 2.9 MMOL/L (3.5-5.1)
[2019-05-17] MEDS ORDERED: potassium Cl 20 mEq SR tablet PO STA (11:33)
[2019-05-17] MEDS ORDERED: CefTRIAXone/D5W-Rocephin 1gm 50 ML IV ONE (11:35)
[2019-05-17] MEDS ORDERED: potassium Cl 10 mEq/100mL bag IV ONE (11:35)
[2019-05-17] MEDS ORDERED: CEPH250T PO (11:36)
--- NOTE | 2019-05-17 11:40 | NUR ---
PATIENT ATE HALF OF A SANDWHICH AND 240 ML MILK
[2019-05-17] MEDS ORDERED: dextrose 5%-1/2 normal saline 1,000 ML IV SCH (11:50)
[2019-05-17] MEDS ORDERED: magnesium 2GM in 50ml NS 50 ML IV ONE (12:45)
[2019-05-17] MEDS ORDERED: DEXTROSE 10 % AND 0.45 % NACL 1,000 ML IV SCH (12:45)
[2019-05-17] MEDS ORDERED: ringers solution, lacted 1,000 ML IV SCH (12:45)
[2019-05-17] MEDS ORDERED: insulin Lispro (HumaLOG) vial - multi-dose SQ SCH (13:10)
[2019-05-17] MEDS ORDERED: potassium CL 10mEq/100ml bag 100 ML IV PRN ×2 (13:10)
[2019-05-17] MEDS ORDERED: glucagon, human recombinant 1mg kit SUBCUT PRN (13:10)
[2019-05-17] MEDS ORDERED: potassium Cl 20 mEq SR tablet PO PRN ×2 (13:10)
[2019-05-17] MEDS ORDERED: ondansetron/PF 4mg/2ml inj IV PRN (13:10)
[2019-05-17] MEDS ORDERED: magnesium 4gm in 100ml NS 100 ML IV PRN (13:10)
[2019-05-17] MEDS ORDERED: magnesium 2GM in 50ml NS 50 ML IV PRN (13:10)
[2019-05-17] MEDS ORDERED: MESSAGE TO PHARMACY PO ONE (13:10)
[2019-05-17] MEDS ORDERED: dextrose 50%-water 50ml dispensing syringe IV PRN ×2 (13:10)
[2019-05-17] MEDS ORDERED: acetaminophen 325mg tablet PO PRN (13:10)
[2019-05-17] MEDS ORDERED: magnesium hydroxide 30ml (MOM) UD suspension PO PRN (13:10)
[2019-05-17] MEDS ORDERED: dextrose ORAL solution 15 GM/59 ML bottle PO PRN ×2 (13:10)
[2019-05-17] MEDS ORDERED: magnesium Cl slow-release 64mg tablet PO PRN (13:10)
[2019-05-17] MEDS ORDERED: CEPH500C5 PO (13:14)
[2019-05-17] MEDS ORDERED: HYDR-3964 PO (13:14)
[2019-05-17] MEDS ORDERED: METF-950 PO (13:14)
[2019-05-17] MEDS ORDERED: FLO0.4C PO (13:14)
[2019-05-17] MEDS ORDERED: HYDROcodone/acetaminophen 5mg/325mg tablet PO PRN (13:20)
[2019-05-17 13:23] LABS: PHOSPHORUS 1.8 MG/DL (2.3-4.5)
--- NOTE | 2019-05-17 13:24 | NUR ---
DR FORREST IN ROOM TO EVAL PT FOR ADMIT.
--- NOTE | 2019-05-17 13:27 | NUR ---
LAB CALLS TO INFORM THAT PT ALREADY HAD AN A1C DONE ON 04/20/19, NOTIFY DR FORREST.
--- NOTE | 2019-05-17 13:36 | NUR ---
PER DR FORREST HE WANTS THE PT TO D10 NS WITH 20K AT 100ML HR. NOTIFY PHARMACY OF THE CHANGE.
[2019-05-17] MEDS ORDERED: glucagon, human recombinant 1mg kit SUBCUT STA (13:41)
--- NOTE | 2019-05-17 13:41 | NUR ---
DR FORREST IS AWARE OF BS OF 40, WILL ORDER GLUCAGON.
[2019-05-17] MEDS: SODIUM CHLORIDE IV SCH (14:03)
[2019-05-17] MEDS: [UNRECOGNIZED DRUG - OTHER] IV SCH (14:03)
[2019-05-17] MEDS: POTASSIUM CL IV SCH (14:03)
[2019-05-17 14:30] VITALS: BP 122/74
--- NOTE | 2019-05-17 16:43 | NUR ---
Patient arrived at 1430 from ED. Patient transferred to bed by walking. Patient oriented to rtoom and call light within reach. Patient tele monitoring initiated. Will continue to monitor.
[2019-05-17 16:47] LABS: COLOR,URINE YELLOW (Yellow); GLUCOSE, URINE 500 mg/dl (Neg); KETONES,URINE TRACE mg/dl (Neg); LEUKOCYTE ESTERASE ,URINE NEGATIVE (Neg); NITRITES, URINE NEGATIVE (Neg); OCCULT BLOOD,URINE NEGATIVE (Neg); PH,URINE 6.5 (4.8-8.0); PROTEIN,URINE NEGATIVE (Neg); UROBILINOGEN,URINE 0.2 E.U/dL (0.2-1.0)
[2019-05-17 16:51] LABS: UA COLLECTION TYPE CLN CATCH MIDSTREAM
[2019-05-17 16:52] LABS: CLARITY,URINE SLIGHTLY CLOUDY (Clear)
[2019-05-17 16:53] LABS: BACTERIA,URINE NONE SEEN /HPF (Neg); HYALINE CASTS 0-3 /LPF (NEGATIVE); MUCUS STRANDS MODERATE /LPF (Neg); RBC,URINE NONE SEEN /HPF (0-2); SQUAMOUS EPITHELIAL CELL,UR NONE SEEN /LPF (FEW); WBC,URINE 0-4 /HPF (0-4)
[2019-05-17] MEDS: levoFLOXACIN 250mg tablet PO SCH (16:59)
[2019-05-17 17:00] VITALS: BP 121/71
[2019-05-17] MEDS: clindamycin 600mg/D5W 50ml 50 ML IV SCH ×2 (17:06→20:07)
--- NOTE | 2019-05-17 18:29 | NUR ---
Problems reprioritized. Patient report given, questions answered & plan of care reviewed with DARY Fagan.
--- NOTE | 2019-05-17 18:29 | NUR ---
Orientee Medication Administration: For this medication-pass time frame, medication were reviewed, dispensed, administered and documented per hospital policy by Heather FOOTE . Orientee documentation: I have reviewed and agree with interventions, assessments performed and documented by Heather FOOTE.
--- NOTE | 2019-05-17 18:38 | NUR ---
Patient in room PCU 3012. I have received report from Meli FOOTE and Heather FOOTE and had the opportunity to ask questions and assume patient care.
[2019-05-17 19:40] LABS: POTASSIUM 4.4 MMOL/L (3.5-5.1)
[2019-05-17] MEDS: gabapentin 100mg capsule PO SCH (20:06)
[2019-05-17] MEDS: carVEDilol 3.125mg tablet PO SCH (20:06)
[2019-05-17] MEDS ORDERED: insulin glargine (Lantus) pen - multi-dose SQ SCH (21:00)
[2019-05-17] MEDS ORDERED: amitriptyline 50mg tablet PO SCH (21:00)
[2019-05-17 22:00] VITALS: BP 123/69
[2019-05-18 00:57] LABS: EOSINOPHILS # (AUTO) 0.1 X10'3 (0-0.9); MONOCYTES # (AUTO) 0.6 X10'3 (0-0.9); NEUTROPHILS # (AUTO) 5.4 X10'3 (1.8-7.7)
[2019-05-18 01:05] LABS: ALANINE AMINOTRANSFERASE 90 U/L (12-78); ALBUMIN 2.7 G/DL (3.4-5.0); ALBUMIN/GLOBULIN RATIO 0.7 (1.1-1.5); ALKALINE PHOSPHATASE 95 IU/L (46-116); ANION GAP 8 (8-16); ASPARTATE AMINO TRANSFERASE 106 U/L (10-37); BILIRUBIN,TOTAL 0.3 MG/DL (0.1-1.0); BLOOD UREA NITROGEN 28 MG/DL (7-18); BUN/CREATININE RATIO 22.8 (5.4-32.0); CALCIUM 8.2 MG/DL (8.5-10.1); CHLORIDE 103 MMOL/L (99-107); CREATININE 1.23 MG/DL (0.60-1.10); GLUCOSE 161 MG/DL (70-104); POTASSIUM 4.3 MMOL/L (3.5-5.1); SODIUM 136 MMOL/L (135-145); TOTAL CARBON DIOXIDE 25.2 MMOL/L (24-32); TOTAL PROTEIN 6.6 G/DL (6.4-8.2); eGFR 59 ML/MIN
[2019-05-18 01:08] LABS: BASOPHILS % (AUTO) 0.5 % (0-1); EOSINOPHILS % (AUTO) 1.3 % (0-6); HEMATOCRIT 33.5 % (42.0-52.0); HEMOGLOBIN 11.6 g/dl (14.0-17.9); LYMPHOCYTES # (AUTO) 2.6 X10'3 (1.1-4.8); LYMPHOCYTES % (AUTO) 29.9 % (21-51); MEAN CORPUSCULAR HEMOGLOBIN 30.3 PG (27.0-31.0); MEAN CORPUSCULAR HGB CONC 34.5 g/dL (33.0-36.5); MEAN CORPUSCULAR VOLUME 87.8 FL (78-98); MONOCYTES % (AUTO) 7.1 % (2-12); NEUTROPHILS % (AUTO) 61.2 % (42-75); PLATELET COUNT 240 X10'3 (140-440); RED BLOOD COUNT 3.81 X10'6 (4.70-6.10); RED CELL DISTRIBUTION WIDTH 14.3 % (11.5-14.5); WHITE BLOOD COUNT 8.9 X10'3 (4.5-11.0)
[2019-05-18 01:14] LABS: CHOL/HDL RATIO 3.3 (0.00-4.99); CHOLESTEROL 167 MG/DL (0-200); HDL CHOLESTEROL 50 MG/DL (35-60); LDL CHOLESTEROL 107 MG/DL (50-100); MAGNESIUM 1.6 MG/DL (1.5-2.4); TRIGLYCERIDES 92 MG/DL (20-135)
[2019-05-18] MEDS: SODIUM CHLORIDE IV SCH (02:11)
[2019-05-18] MEDS: [UNRECOGNIZED DRUG - OTHER] IV SCH (02:11)
[2019-05-18] MEDS: POTASSIUM CL IV SCH (02:11)
[2019-05-18] MEDS: clindamycin 600mg/D5W 50ml 50 ML IV SCH ×3 (02:20→14:17)
[2019-05-18 03:00] VITALS: BP 127/75
--- NOTE | 2019-05-18 03:16 | NUR ---
call to Dr. Baker, informed doctor pts BG has been 150's-170's and receiving Q1H accuchecks. Received order to change accuchecks to Q2H.
[2019-05-18 06:00] VITALS: BP 139/84
--- NOTE | 2019-05-18 06:06 | NUR ---
Problems reprioritized. Patient report given, questions answered & plan of care reviewed with Johanna FOOTE.
--- NOTE | 2019-05-18 06:13 | NUR ---
Patient in room PCU 3012. I have received report from Gracia FOOTE and had the opportunity to ask questions and assume patient care.
--- NOTE | 2019-05-18 06:15 | NUR ---
Orientee documentation: I have reviewed and agree with all interventions, assessments performed and documented by Fer FOOTE.
[2019-05-18] MEDS: gabapentin 100mg capsule PO SCH (07:16)
[2019-05-18] MEDS: levoFLOXACIN 250mg tablet PO SCH (07:17)
[2019-05-18] MEDS: carVEDilol 3.125mg tablet PO SCH (07:18)
[2019-05-18] MEDS ORDERED: aspirin 81mg tablet.DR PO SCH (08:00)
[2019-05-18] MEDS ORDERED: levoTHYROXINE 175mcg tablet PO SCH (08:00)
[2019-05-18] MEDS ORDERED: tamsulosin 0.4mg capsule PO SCH (08:00)
[2019-05-18] MEDS ORDERED: citalopram 20mg tablet PO SCH (08:00)
[2019-05-18] MEDS ORDERED: K and/or MAG REPLACEMENT MC SCH (08:00)
[2019-05-18] MEDS ORDERED: atorvastatin 20mg tablet PO SCH (08:00)
[2019-05-18] MEDS ORDERED: enoxaparin 40mg/0.4ml syringe SQ SCH (08:00)
--- NOTE | 2019-05-18 09:51 | NUR ---
Page Dr. Erickson PAGER ID: [phone] MESSAGE: Room 3012C Timothy Billingsley: Patient's most recent blood sugar is 307, up from 185. Can we discontinue the D10 w/potassium fluids? Thank you, Johanna ext [phone]
[2019-05-18 11:00] VITALS: BP 122/83
[2019-05-18] MEDS ORDERED: CLIN-5 PO (11:51)
[2019-05-18] MEDS ORDERED: LEVO25TA7 PO (11:51)
[2019-05-18 15:00] VITALS: BP 133/87
--- NOTE | 2019-05-18 15:16 | NUR ---
Patient stable for discharge per MD orders. All instructions reviewed with patient and all questions answered. New prescriptions e-scripted to patients preferred pharmacy. PIV and monitor technician discontinued. Belongings collected and sent with patient. Patient left with friend in private vehicle. Patient wheeled down by RN.
== END 2019-05-18 15:17 | disposition home or self-care (01) | DRG 602 ==
LOC: ER 10:17 → ED HOLD 13:08 → PCU 3S 14:33
PROVIDERS: ADMIT Family Medicine; ATTEND Family Medicine
DX: L03.116 Cellulitis of left lower limb (principal); N17.0 Acute kidney failure with tubular necrosis; E87.2 Acidosis; E87.6 Hypokalemia; E11.42 Type 2 diabetes mellitus with diabetic polyneuropathy; D64.9 Anemia, unspecified; E11.21 Type 2 diabetes mellitus with diabetic nephropathy; E11.649 Type 2 diabetes mellitus with hypoglycemia without coma; E78.00 Pure hypercholesterolemia, unspecified; E78.5 Hyperlipidemia, unspecified; I49.9 Cardiac arrhythmia, unspecified; E89.0 Postprocedural hypothyroidism; F32.9 Major depressive disorder, single episode, unspecified; F41.9 Anxiety disorder, unspecified; K21.9 Gastro-esophageal reflux disease without esophagitis; R19.7 Diarrhea, unspecified; M54.5 Low back pain; G89.29 Other chronic pain; I10 Essential (primary) hypertension; Z80.0 Family history of malignant neoplasm of digestive organs; Z85.038 Personal history of other malignant neoplasm of large intestine; Z85.6 Personal history of leukemia; Z85.850 Personal history of malignant neoplasm of thyroid; Z79.899 Other long term (current) drug therapy; Z79.82 Long term (current) use of aspirin
CPT/HCPCS: 36415; 71045; 80053; 80061; 81001; 82948; 83605; 83735; 83880; 84100; 84132; 84145; 84443; 84484; 85025; 87040; 87081; 93005; 96365; 96368; 96375; 96376; 99285; G0378; J0696; J1610; J1650; J1815; J2405; J3480; J3490; J7120; J7131

== ENCOUNTER 2019-12-15 21:21 | Inpatient (IN) | payer MEDICARE, MEDICAID ==
[~2019-12-15] VITALS: Ht 185.4 cm; Wt 118.2 kg
[~2019-12-15 21:21] MED LIST changes: +CLIN-5 PO; -ESCI20TA38 PO; +ESCI20TA45 PO; -FLO0.4C PO; -HYDR-4383 PO; +LEVO25TA7 PO; -METF-438 PO; +ONDA-103 PO; -ONDA4TAB11 PO
[2019-12-15 23:13] LABS: CLARITY,URINE CLEAR (Clear); COLOR,URINE YELLOW (Yellow); GLUCOSE, URINE >=1000 mg/dl (Neg); KETONES,URINE NEGATIVE (Neg); LEUKOCYTE ESTERASE ,URINE NEGATIVE (Neg); NITRITES, URINE NEGATIVE (Neg); OCCULT BLOOD,URINE NEGATIVE (Neg); PH,URINE 5.5 (4.8-8.0); PROTEIN,URINE TRACE mg/dl (Neg); UROBILINOGEN,URINE 0.2 E.U/dL (0.2-1.0)
[2019-12-15 23:15] LABS: UA COLLECTION TYPE NON-SPECIFIED
[2019-12-15 23:16] LABS: BASOPHILS # (AUTO) 0.1 X10'3 (0-0.2); BASOPHILS % (AUTO) 0.6 % (0-1); EOSINOPHILS # (AUTO) 0.1 X10'3 (0-0.9); HEMATOCRIT 42.3 % (42.0-52.0); LYMPHOCYTES # (AUTO) 1.4 X10'3 (1.1-4.8); LYMPHOCYTES % (AUTO) 15.2 % (21-51); MEAN CORPUSCULAR HEMOGLOBIN 29.1 PG (27.0-31.0); MEAN CORPUSCULAR HGB CONC 33.1 g/dL (33.0-36.5); MEAN PLATELET VOLUME 8.5 FL (7.4-10.4); MONOCYTES # (AUTO) 0.6 X10'3 (0-0.9); MONOCYTES % (AUTO) 6.4 % (2-12); NEUTROPHILS # (AUTO) 7.3 X10'3 (1.8-7.7); NEUTROPHILS % (AUTO) 76.8 % (42-75); PLATELET COUNT 266 X10'3 (140-440); RED CELL DISTRIBUTION WIDTH 14.7 % (11.5-14.5); WHITE BLOOD COUNT 9.4 X10'3 (4.5-11.0)
[2019-12-15 23:16] LABS: BACTERIA,URINE NONE SEEN /HPF (Neg); RBC,URINE NONE SEEN /HPF (0-2); SQUAMOUS EPITHELIAL CELL,UR FEW /LPF (FEW); WBC,URINE 0-4 /HPF (0-4)
[2019-12-15 23:29] LABS: PARTIAL THROMBOPLASTIN TIME 24 SECONDS (22-32)
[2019-12-15 23:31] LABS: ALANINE AMINOTRANSFERASE 38 U/L (12-78); ALBUMIN 3.5 G/DL (3.4-5.0); ALBUMIN/GLOBULIN RATIO 0.8 (1.1-1.5); ALKALINE PHOSPHATASE 96 IU/L (46-116); ANION GAP 10 (8-16); ASPARTATE AMINO TRANSFERASE 30 U/L (10-37); BILIRUBIN,TOTAL 0.3 MG/DL (0.1-1.0); BLOOD UREA NITROGEN 24 MG/DL (7-18); BUN/CREATININE RATIO 16.8 (5.4-32.0); CALCIUM 8.7 MG/DL (8.5-10.1); CHLORIDE 104 MMOL/L (99-107); CREATININE 1.43 MG/DL (0.60-1.10); GLUCOSE 69 MG/DL (70-104); SODIUM 140 MMOL/L (135-145); TOTAL CARBON DIOXIDE 25.7 MMOL/L (24-32); TOTAL PROTEIN 7.9 G/DL (6.4-8.2); eGFR 50 ML/MIN
[2019-12-15 23:32] LABS: POTASSIUM 2.9 MMOL/L (3.5-5.1)
[2019-12-15] MEDS ORDERED: normal saline 1000ml 1,000 ML IV ONE (23:35)
[2019-12-15] MEDS ORDERED: ondansetron/PF 4mg/2ml inj IV ONE (23:35)
[2019-12-16] MEDS ORDERED: potassium 10mEq/100ml NS w/LIDOcaine (10mg/bag) IV ONE (00:50)
[2019-12-16] MEDS ORDERED: magnesium 2GM in 50ml NS 50 ML IV ONE (00:50)
[2019-12-16] MEDS ORDERED: D5-1/2NS w/20 mEq potassium per 1000ml IV ONE (00:50)
[2019-12-16] MEDS ORDERED: potassium Cl 10 mEq/100mL bag IV ONE (00:55)
[2019-12-16] MEDS ORDERED: iohexol 300mg/ml 100ml inj. ONE (01:01)
[2019-12-16 01:06] LABS: MAGNESIUM 2.2 MG/DL (1.5-2.4)
[2019-12-16] MEDS ORDERED: dextrose 5%-1/2 normal saline 1,000 ML IV SCH ×2 (03:36→14:25)
[2019-12-16] MEDS ORDERED: HYDROcodone/acetaminophen 5mg/325mg tablet PO PRN (03:40)
[2019-12-16] MEDS ORDERED: magnesium hydroxide 30ml (MOM) UD suspension PO PRN (03:40)
[2019-12-16] MEDS ORDERED: morphine 2 MG/ML inj. syringe IV PRN (03:40)
[2019-12-16] MEDS ORDERED: acetaminophen 325mg tablet PO PRN ×2 (03:40)
[2019-12-16] MEDS ORDERED: mag hydrox/Alum hydrox/simeth 30ml oral suspension PO PRN (03:40)
[2019-12-16] MEDS ORDERED: MELO-102 PO (03:45)
[2019-12-16] MEDS ORDERED: CITA20TA28 PO (03:45)
[2019-12-16] MEDS ORDERED: HYDR-3965 PO (03:45)
[2019-12-16] MEDS ORDERED: LORA-269 PO (03:45)
[2019-12-16] MEDS ORDERED: LINA5TAB4 PO (03:45)
[2019-12-16] MEDS ORDERED: METO5TAB85 PO (03:45)
[2019-12-16] MEDS ORDERED: OMEP40CA13 PO (03:45)
[2019-12-16] MEDS ORDERED: CYCL-394 PO (03:45)
--- NOTE | 2019-12-16 04:10 | NUR ---
Received report from primary care nurse Isabelle FOOTE. Pending patient arrival to the floor.
[2019-12-16] MEDS ORDERED: insulin Lispro (HumaLOG) vial - multi-dose SQ SCH (04:50)
[2019-12-16] MEDS ORDERED: dextrose ORAL solution 15 GM/59 ML bottle PO PRN (04:50)
[2019-12-16] MEDS ORDERED: glucagon, human recombinant 1mg kit SUBCUT PRN (04:50)
[2019-12-16] MEDS ORDERED: MESSAGE TO PHARMACY PO ONE (04:50)
[2019-12-16] MEDS: morphine 2 MG/ML inj. syringe IV PRN ×4 (05:24→18:34)
[2019-12-16 05:30] VITALS: BP_SYST 133; BP_SYST 138; BP_SYST 159; BP_DIAS 88; BP_DIAS 91
[2019-12-16 05:44] VITALS: BP 133/88
--- NOTE | 2019-12-16 06:23 | NUR ---
Reported off to Sepideh FOOTE. Patient is awake and alert on room air in no apparent distress. Call light and items of frequent use within reach.
[2019-12-16 06:32] LABS: HEMOGLOBIN A1C 13.3 % (4.5-6.2)
[2019-12-16] MEDS: dextrose 50%-water 50ml dispensing syringe IV PRN ×4 (07:06→23:07)
[2019-12-16 07:22] LABS: POTASSIUM 3.5 MMOL/L (3.5-5.1)
[2019-12-16] MEDS: gabapentin 100mg capsule PO SCH ×2 (07:52→20:11)
[2019-12-16] MEDS: atorvastatin 20mg tablet PO SCH (07:52)
[2019-12-16] MEDS: ESCITALOPRAM OXALATE 5 MG TABLET PO SCH (07:53)
[2019-12-16] MEDS: levoTHYROXINE 175mcg tablet PO SCH (07:53)
[2019-12-16] MEDS: pantoprazole 40mg Tablet.DR PO SCH (07:53)
[2019-12-16] MEDS: LORazepam 1 MG tablet PO SCH ×2 (07:54→16:12)
[2019-12-16] MEDS: aspirin 81mg tablet.DR PO SCH (07:54)
[2019-12-16 08:00] VITALS: BP 145/85
[2019-12-16] MEDS ORDERED: MELOXICAM PO SCH (08:00)
[2019-12-16] MEDS ORDERED: cyclobenzaprine 10mg tablet PO SCH (08:00)
[2019-12-16] MEDS ORDERED: citalopram 20mg tablet PO SCH (08:00)
[2019-12-16] MEDS: ondansetron/PF 4mg/2ml inj IV PRN ×2 (08:01→14:15)
[2019-12-16 11:00] VITALS: BP 131/81
[2019-12-16] MEDS ORDERED: potassium CL 10mEq/100ml bag 100 ML IV PRN ×2 (12:35)
[2019-12-16] MEDS ORDERED: Insulin Reg/NS 100units/100mL 100 ML IV SCH (12:35)
[2019-12-16] MEDS ORDERED: sodium phosphate inj. 30 MMOL in dextrose 5%-water 240 ML IV PRN (12:35)
[2019-12-16] MEDS ORDERED: Neutra Phos packet PO PRN (12:35)
[2019-12-16] MEDS ORDERED: insulin regular, human U-100 3ml vial - multi-dose IV PRN (12:35)
[2019-12-16] MEDS ORDERED: sodium bicarbonate (8.4%) inj. 100 MEQ in dextrose 5% water 500ml 500 ML IV PRN (12:35)
[2019-12-16] MEDS ORDERED: sodium bicarbonate (8.4%) inj. 50 MEQ in dextrose 5% water 500ml 250 ML IV PRN (12:35)
[2019-12-16] MEDS ORDERED: normal saline 1000ml 1,000 ML IV SCH ×2 (12:35)
[2019-12-16] MEDS ORDERED: potassium CL 20mEq in D5-1/2NS 1,000 ML IV PRN (12:35)
[2019-12-16] MEDS ORDERED: potassium Cl 20 mEq SR tablet PO PRN ×2 (12:35)
[2019-12-16] MEDS ORDERED: sodium phosphate inj. 15 MMOL in dextrose 5%-water 245 ML IV PRN (12:35)
[2019-12-16] MEDS ORDERED: cyclobenzaprine 10mg tablet PO PRN (12:55)
--- NOTE | 2019-12-16 14:10 | NUR ---
DM consult, A1c is 13.3; patient last seen by CONSTANCE 01/18/19; at that time patient had A1c of 12.4 and reported trying to find a new MD to help manage DM, stated he checks his BG levels two times a day with resulting numbers in the 200s, followed no DM diet, and reportedly was taking his Metformin per rx. Pt was provided with written and verbal DM education with referral to outpatient DM class. Admitted presently with c/o abdominal pain, unable to drink or keep food down, frequent BMs per H&P. Patient met at bedside, observed that he ate 100% of his protein on his lunch tray, reports a fair appetite and no vomiting since admitting, states is trying to eat carefully as to not have nausea. Discussed his elevated A1c, pt reports his A1c is usually in the 11s, encouraged him to discuss his A1c with his PCP. Provided with another written DM education handout and discussed types of carbs, carb counting, meal planning, and pt verbalized understanding of all. Reports that other than the past three days he normally takes his DM medications per rx, encouraged pt again to take meds as directed and follow DM diet as his A1c is quite elevated. Addendum: 12/16/19 at [address] Amended: Links added.
--- NOTE | 2019-12-16 15:15 | NUR ---
Problems reprioritized. Patient report given, questions answered & plan of care reviewed with ALEXANDRE FOOTE.
--- NOTE | 2019-12-16 17:03 | NUR ---
1505- Patient in room PCU 3012. I have received report from Corie FOOTE and had the opportunity to ask questions and assume patient care.
[2019-12-16 18:00] VITALS: BP 103/67
--- NOTE | 2019-12-16 18:25 | NUR ---
Problems reprioritized. Patient report given, questions answered & plan of care reviewed with Rahul RN.
--- NOTE | 2019-12-16 18:30 | NUR ---
Patient in room PCU 3012. I have received report from Jaycob FOOTE and had the opportunity to ask questions and assume patient care.
[2019-12-16] MEDS: K and/or MAG REPLACEMENT MC SCH (20:00)
[2019-12-16] MEDS: amitriptyline 50mg tablet PO SCH (20:12)
[2019-12-16] MEDS ORDERED: insulin glargine (Lantus) pen - multi-dose SQ SCH (21:00)
[2019-12-16] MEDS: DEXTROSE 10 % AND 0.45 % NACL 1,000 ML IV SCH (23:25)
[2019-12-17] MEDS: LORazepam 1 MG tablet PO SCH ×4 (00:08→23:50)
[2019-12-17] MEDS: dextrose 50%-water 50ml dispensing syringe IV PRN ×4 (00:14→08:12)
[2019-12-17 02:00] VITALS: BP 121/79
[2019-12-17 06:00] VITALS: BP 144/78
[2019-12-17 06:17] LABS: BASOPHILS % (AUTO) 0.6 % (0-1); EOSINOPHILS # (AUTO) 0.1 X10'3 (0-0.9); EOSINOPHILS % (AUTO) 2.1 % (0-6); HEMATOCRIT 37.7 % (42.0-52.0); HEMOGLOBIN 12.5 g/dl (14.0-17.9); LYMPHOCYTES # (AUTO) 2.6 X10'3 (1.1-4.8); LYMPHOCYTES % (AUTO) 40.4 % (21-51); MEAN CORPUSCULAR HEMOGLOBIN 29.3 PG (27.0-31.0); MEAN CORPUSCULAR VOLUME 88.7 FL (78-98); MEAN PLATELET VOLUME 9.1 FL (7.4-10.4); MONOCYTES # (AUTO) 0.5 X10'3 (0-0.9); MONOCYTES % (AUTO) 7.3 % (2-12); NEUTROPHILS # (AUTO) 3.2 X10'3 (1.8-7.7); NEUTROPHILS % (AUTO) 49.6 % (42-75); PLATELET COUNT 246 X10'3 (140-440); RED BLOOD COUNT 4.25 X10'6 (4.70-6.10); WHITE BLOOD COUNT 6.4 X10'3 (4.5-11.0)
--- NOTE | 2019-12-17 06:22 | NUR ---
Patient in room PCU 3012. I have received report from Matias FOOTE and had the opportunity to ask questions and assume patient care.
--- NOTE | 2019-12-17 06:24 | NUR ---
Problems reprioritized. Patient report given, questions answered & plan of care reviewed with Lowell FOOTE.
[2019-12-17 06:29] LABS: ALBUMIN 2.8 G/DL (3.4-5.0); ANION GAP 7 (8-16); BLOOD UREA NITROGEN 12 MG/DL (7-18); BUN/CREATININE RATIO 9.9 (5.4-32.0); CALCIUM 8.1 MG/DL (8.5-10.1); CHLORIDE 108 MMOL/L (99-107); CREATININE 1.21 MG/DL (0.60-1.10); PHOSPHORUS 3.5 MG/DL (2.3-4.5); POTASSIUM 3.6 MMOL/L (3.5-5.1); SODIUM 141 MMOL/L (135-145); TOTAL CARBON DIOXIDE 26.5 MMOL/L (24-32); eGFR 61 ML/MIN
[2019-12-17 06:33] LABS: GLUCOSE 48 MG/DL (70-104)
[2019-12-17] MEDS: DEXTROSE 10 % AND 0.45 % NACL 1,000 ML IV SCH ×4 (07:16→19:54)
[2019-12-17] MEDS: ondansetron 4mg rapidly disintigrating tab PO PRN (07:16)
[2019-12-17] MEDS: aspirin 81mg tablet.DR PO SCH (07:19)
[2019-12-17] MEDS: atorvastatin 20mg tablet PO SCH (07:19)
[2019-12-17] MEDS: ESCITALOPRAM OXALATE 5 MG TABLET PO SCH (07:19)
[2019-12-17] MEDS: gabapentin 100mg capsule PO SCH ×2 (07:19→20:58)
[2019-12-17] MEDS: levoTHYROXINE 175mcg tablet PO SCH (07:19)
[2019-12-17] MEDS: pantoprazole 40mg Tablet.DR PO SCH (07:19)
[2019-12-17] MEDS: K and/or MAG REPLACEMENT MC SCH ×2 (08:00→20:55)
[2019-12-17] MEDS: metoclopramide 5 mg/ml inj IV PRN ×2 (08:37→15:04)
--- NOTE | 2019-12-17 08:59 | NUR ---
PAGER ID: [phone] MESSAGE: [id number] Timothy Billingsley: Pt continues to be hypoglycemic w/ D10 at 150ml/hr, can we increase to 200ml/hr? thanks bar [phone]
[2019-12-17] MEDS ORDERED: glucagon, human recombinant 1mg kit SUBCUT ONE (09:20)
--- NOTE | 2019-12-17 09:30 | NUR ---
received orders to increase D10 to 200cc/hr, also to give glucagon 1mg subq if blood glucose drops below [address] de leon
[2019-12-17 11:00] VITALS: BP 131/88
[2019-12-17] MEDS: HYDROcodone/acetaminophen 10/325mg tab PO PRN ×2 (12:50→21:01)
[2019-12-17] MEDS: ondansetron/PF 4mg/2ml inj IV PRN (12:50)
[2019-12-17 15:00] VITALS: BP 135/84
--- NOTE | 2019-12-17 15:42 | NUR ---
[id number] Timothy Billingsley: Attempted to get ortho VS, pt became dizzy while standing and unable to complete, do you want patient to work with physical therapy? thanks bar [phone]
--- NOTE | 2019-12-17 15:44 | NUR ---
PAGER ID: [phone] MESSAGE: [id number] Timothy Billingsley: Patient's blood glucose has been 150's and above last few hours, can we decrease D10? Thanks Lowell 7046
--- NOTE | 2019-12-17 15:56 | NUR ---
Received orders to decrease D10 to 100cc/hr per dr. de leon.
[2019-12-17 18:00] VITALS: BP 130/77
--- NOTE | 2019-12-17 18:13 | NUR ---
Patient in room PCU 3012. I have received report from Lowell FOOTE and had the opportunity to ask questions and assume patient care.
--- NOTE | 2019-12-17 18:17 | NUR ---
PAGER ID: [phone] MESSAGE: [id number] Timothy Billingsley: Most recent blood glucose has dropped to 78, do you want to increase D10 to 150ml/hr? thanks Lowell 5400
--- NOTE | 2019-12-17 18:18 | NUR ---
Problems reprioritized. Patient report given, questions answered & plan of care reviewed with Fer FOOTE.
--- NOTE | 2019-12-17 18:29 | NUR ---
PAGER ID: [phone] MESSAGE: [id number] Timothy Billingsley: Most recent blood glucose has dropped to 78, do you want to increase D10 to 150ml/hr? thanks Lowell 9913
[2019-12-17] MEDS: amitriptyline 50mg tablet PO SCH (20:59)
[2019-12-17 22:00] VITALS: BP 130/80
[2019-12-18] VITALS (8 sets, daily range): BP systolic 104–150; BP diastolic 63–102
[2019-12-18] MEDS: dextrose ORAL solution 15 GM/59 ML bottle PO PRN ×3 (04:18→05:09)
--- NOTE | 2019-12-18 04:23 | NUR ---
Spoke with Dr. Spencer regarding pt low BG received order to increase D10 1/2 NS to 150 ml/hr.
--- NOTE | 2019-12-18 04:23 | NUR ---
Page Sent PAGER ID: [phone] MESSAGE: pt in [id number] Timothy Billingsley here for N/V, hypoglycemia. he is receiving D10 1/2 NS at 100ml/hr, current BG is 67, 15g oral glucose give per protocol, do you want to increase fluid to 150ml/hr?- Fer
--- NOTE | 2019-12-18 05:08 | NUR ---
Page Sent PAGER ID: [phone] MESSAGE: pt in [id number] Timothy Jose Cruz here for N/V, hypoglycemia. he is receiving D10 1/2 NS at 150ml/hr, current BG is 67, 15g oral glucose given x3, do you want to increase fluid more?- Fer
--- NOTE | 2019-12-18 05:10 | NUR ---
Spoke w/ Dr. Spencer regarding pt's persistent low BG of 67 after 2 15g doses of oral glucose, received order to give 1mg glucogon x1
[2019-12-18] MEDS: DEXTROSE 10 % AND 0.45 % NACL 1,000 ML IV SCH ×2 (05:36→15:58)
--- NOTE | 2019-12-18 06:00 | NUR ---
Patient in room PCU 3012. I have received report from Fer and had the opportunity to ask questions and assume patient care.
--- NOTE | 2019-12-18 06:00 | NUR ---
Pt's BG 82 glucagon held, notified.
--- NOTE | 2019-12-18 06:03 | NUR ---
Page Sent PAGER ID: [phone] MESSAGE: pt in [id number] Timothy Billingsley here for N/V, hypoglycemia. BG now 82 glucagon not administered- Fer [phone]
--- NOTE | 2019-12-18 06:15 | NUR ---
Problems reprioritized. Patient report given, questions answered & plan of care reviewed with Meli FOOTE.
[2019-12-18 06:43] LABS: BASOPHILS # (AUTO) 0.1 X10'3 (0-0.2); EOSINOPHILS # (AUTO) 0.2 X10'3 (0-0.9); EOSINOPHILS % (AUTO) 3.1 % (0-6); HEMATOCRIT 38.7 % (42.0-52.0); HEMOGLOBIN 12.7 g/dl (14.0-17.9); LYMPHOCYTES % (AUTO) 33.3 % (21-51); MEAN CORPUSCULAR HEMOGLOBIN 29.3 PG (27.0-31.0); MEAN CORPUSCULAR HGB CONC 32.8 g/dL (33.0-36.5); MEAN CORPUSCULAR VOLUME 89.3 FL (78-98); MEAN PLATELET VOLUME 9.3 FL (7.4-10.4); MONOCYTES # (AUTO) 0.5 X10'3 (0-0.9); MONOCYTES % (AUTO) 8.6 % (2-12); NEUTROPHILS # (AUTO) 3.2 X10'3 (1.8-7.7); PLATELET COUNT 246 X10'3 (140-440); RED BLOOD COUNT 4.34 X10'6 (4.70-6.10); RED CELL DISTRIBUTION WIDTH 14.9 % (11.5-14.5); WHITE BLOOD COUNT 5.9 X10'3 (4.5-11.0)
[2019-12-18 07:09] LABS: ANION GAP 7 (8-16); BLOOD UREA NITROGEN 14 MG/DL (7-18); CHLORIDE 107 MMOL/L (99-107); CREATININE 1.17 MG/DL (0.60-1.10); GLUCOSE 95 MG/DL (70-104); POTASSIUM 4.2 MMOL/L (3.5-5.1); SODIUM 141 MMOL/L (135-145); TOTAL CARBON DIOXIDE 27.4 MMOL/L (24-32)
[2019-12-18 07:10] LABS: ALBUMIN 2.8 G/DL (3.4-5.0); CALCIUM 8.1 MG/DL (8.5-10.1); eGFR 63 ML/MIN
[2019-12-18] MEDS: LORazepam 1 MG tablet PO SCH ×2 (07:41→15:58)
[2019-12-18] MEDS: levoTHYROXINE 175mcg tablet PO SCH (07:42)
[2019-12-18] MEDS: gabapentin 100mg capsule PO SCH ×2 (07:42→20:10)
[2019-12-18] MEDS: ondansetron 4mg rapidly disintigrating tab PO PRN (07:42)
[2019-12-18] MEDS: ESCITALOPRAM OXALATE 5 MG TABLET PO SCH (07:42)
[2019-12-18] MEDS: pantoprazole 40mg Tablet.DR PO SCH (07:42)
[2019-12-18] MEDS: atorvastatin 20mg tablet PO SCH (07:42)
[2019-12-18] MEDS: K and/or MAG REPLACEMENT MC SCH ×2 (07:45→19:03)
[2019-12-18] MEDS: HYDROcodone/acetaminophen 10/325mg tab PO PRN ×2 (08:42→17:28)
[2019-12-18] MEDS: metoclopramide 5 mg/ml inj IV PRN ×2 (11:39→17:28)
--- NOTE | 2019-12-18 18:00 | NUR ---
Patient in room PCU 3012. I have received report from Meli FOOTE and Manju FOOTE and had the opportunity to ask questions and assume patient care.
--- NOTE | 2019-12-18 18:00 | NUR ---
Problems reprioritized. Patient report given, questions answered & plan of care reviewed with Asha[].
--- NOTE | 2019-12-18 18:11 | NUR ---
Orientee documentation: I have reviewed and agree with interventions, assessments performed and documented by Meena FOOTE. Orientee Medication Administration: For this medication-pass time frame, medication were reviewed, dispensed, administered and documented per hospital policy by Meena FOOTE .
--- NOTE | 2019-12-18 18:12 | NUR ---
Problems reprioritized. Patient report given, questions answered & plan of care reviewed with Sandra FOOTE. Patient resting in bed, offers no complaints, will continue to monitor.
--- NOTE | 2019-12-18 18:15 | NUR ---
Patient in room PCU 3012. I have received report from Meli FOOTE and Manju FOOTE and had the opportunity to ask questions and assume patient care.
[2019-12-18] MEDS: amitriptyline 50mg tablet PO SCH (20:10)
--- NOTE | 2019-12-18 22:15 | NUR ---
PAGER ID: [phone] MESSAGE: Patient Timothy Billingsley RM [id number] Patient on D10 1/2 NS at 100mls/hr for hypoglycemia. Blood sugar is rising back up and is now 195. Do you want to decrease the rate to 50mls/hr or stop the drip? Please advice. Thank you. Sandra FOOTE ext. [phone]
--- NOTE | 2019-12-18 22:20 | NUR ---
D10 1/2NS decreased from 100mls/hr down to 50mls/hr because blood sugar is starting to rise and was last 195. Will continue to monitor.
[2019-12-19] VITALS (8 sets, daily range): BP systolic 115–158; BP diastolic 55–95
[2019-12-19] MEDS: LORazepam 1 MG tablet PO SCH ×3 (00:20→16:05)
[2019-12-19 05:23] LABS: BASOPHILS # (AUTO) 0.1 X10'3 (0-0.2); EOSINOPHILS # (AUTO) 0.2 X10'3 (0-0.9); EOSINOPHILS % (AUTO) 3.1 % (0-6); HEMATOCRIT 37.5 % (42.0-52.0); HEMOGLOBIN 12.5 g/dl (14.0-17.9); LYMPHOCYTES # (AUTO) 2.4 X10'3 (1.1-4.8); LYMPHOCYTES % (AUTO) 40.1 % (21-51); MEAN CORPUSCULAR HEMOGLOBIN 29.4 PG (27.0-31.0); MEAN CORPUSCULAR HGB CONC 33.3 g/dL (33.0-36.5); MEAN CORPUSCULAR VOLUME 88.2 FL (78-98); MONOCYTES # (AUTO) 0.6 X10'3 (0-0.9); MONOCYTES % (AUTO) 10.1 % (2-12); NEUTROPHILS # (AUTO) 2.7 X10'3 (1.8-7.7); NEUTROPHILS % (AUTO) 45.7 % (42-75); PLATELET COUNT 234 X10'3 (140-440); RED BLOOD COUNT 4.25 X10'6 (4.70-6.10); RED CELL DISTRIBUTION WIDTH 14.4 % (11.5-14.5); WHITE BLOOD COUNT 5.9 X10'3 (4.5-11.0)
[2019-12-19 05:31] LABS: ALBUMIN 2.7 G/DL (3.4-5.0); ANION GAP 5 (8-16); BLOOD UREA NITROGEN 14 MG/DL (7-18); BUN/CREATININE RATIO 10.8 (5.4-32.0); CALCIUM 8.3 MG/DL (8.5-10.1); CHLORIDE 108 MMOL/L (99-107); GLUCOSE 104 MG/DL (70-104); POTASSIUM 3.8 MMOL/L (3.5-5.1); SODIUM 141 MMOL/L (135-145); TOTAL CARBON DIOXIDE 27.6 MMOL/L (24-32); eGFR 56 ML/MIN
[2019-12-19] MEDS: DEXTROSE 10 % AND 0.45 % NACL 1,000 ML IV SCH (05:53)
--- NOTE | 2019-12-19 06:00 | NUR ---
Patient in room PCU 3012. I have received report from Asha and had the opportunity to ask questions and assume patient care.
--- NOTE | 2019-12-19 06:03 | NUR ---
Patient in room PCU 3012. I have received report from Sandra FOOTE and had the opportunity to ask questions and assume patient care. Patient awake and oriented at this time, given a hot compress for his back pain, offers no other complaints, checking blood glucose hourly, will continue to monitor.
--- NOTE | 2019-12-19 06:10 | NUR ---
Problems reprioritized. Patient report given, questions answered & plan of care reviewed with Meli FOOTE and Manju FOOTE.
--- NOTE | 2019-12-19 06:10 | NUR ---
Problems reprioritized. Patient report given, questions answered & plan of care reviewed with Meli FOOTE and Manju FOOTE.
[2019-12-19] MEDS: metoclopramide 5 mg/ml inj IV PRN ×3 (07:14→17:42)
[2019-12-19] MEDS: ESCITALOPRAM OXALATE 5 MG TABLET PO SCH (07:15)
[2019-12-19] MEDS: atorvastatin 20mg tablet PO SCH (07:15)
[2019-12-19] MEDS: HYDROcodone/acetaminophen 10/325mg tab PO PRN ×3 (07:15→17:43)
[2019-12-19] MEDS: gabapentin 100mg capsule PO SCH ×2 (07:16→20:43)
[2019-12-19] MEDS: levoTHYROXINE 175mcg tablet PO SCH (07:16)
[2019-12-19] MEDS: pantoprazole 40mg Tablet.DR PO SCH (07:16)
[2019-12-19] MEDS: K and/or MAG REPLACEMENT MC SCH ×2 (07:19→19:37)
--- NOTE | 2019-12-19 08:04 | NUR ---
I spoke with Dr. Talbot and he gave me an order to stop the D10 that is running at 50ml/hr.
--- NOTE | 2019-12-19 17:35 | NUR ---
Orientee documentation: I have reviewed and agree with interventions, assessments performed and documented by Meena FOOTE. Orientee Medication Administration: For this medication-pass time frame, medication were reviewed, dispensed, administered and documented per hospital policy by Meena FOOTE.
--- NOTE | 2019-12-19 18:13 | NUR ---
Problems reprioritized. Patient report given, questions answered & plan of care reviewed with Jason [].
--- NOTE | 2019-12-19 18:15 | NUR ---
Problems reprioritized. Patient report given, questions answered & plan of care reviewed with Sandra FOOTE. Patient stable at transfer of care.
--- NOTE | 2019-12-19 18:25 | NUR ---
Patient in room PCU 3012. I have received report from Meli FOOTE and Manju FOOTE and had the opportunity to ask questions and assume patient care.
--- NOTE | 2019-12-19 18:25 | NUR ---
Patient in room PCU 3012. I have received report from Meli FOOTE and Manju FOOTE and had the opportunity to ask questions and assume patient care.
[2019-12-19] MEDS: amitriptyline 50mg tablet PO SCH (20:44)
[2019-12-19] MEDS: diatr meglu/diatrizoate 30ml oral sol.-(3 dose) bottle PO SCH (20:45)
[2019-12-20] MEDS: LORazepam 1 MG tablet PO SCH ×2 (00:20→06:53)
[2019-12-20 02:00] VITALS: BP 155/92
[2019-12-20 05:10] LABS: BASOPHILS # (AUTO) 0.1 X10'3 (0-0.2); EOSINOPHILS # (AUTO) 0.2 X10'3 (0-0.9); EOSINOPHILS % (AUTO) 2.6 % (0-6); HEMATOCRIT 39.1 % (42.0-52.0); LYMPHOCYTES # (AUTO) 3.1 X10'3 (1.1-4.8); LYMPHOCYTES % (AUTO) 45.6 % (21-51); MEAN CORPUSCULAR HEMOGLOBIN 29.2 PG (27.0-31.0); MEAN CORPUSCULAR HGB CONC 33.2 g/dL (33.0-36.5); MEAN CORPUSCULAR VOLUME 88.1 FL (78-98); MEAN PLATELET VOLUME 8.9 FL (7.4-10.4); MONOCYTES # (AUTO) 0.5 X10'3 (0-0.9); MONOCYTES % (AUTO) 7.8 % (2-12); NEUTROPHILS # (AUTO) 2.9 X10'3 (1.8-7.7); PLATELET COUNT 255 X10'3 (140-440); RED BLOOD COUNT 4.44 X10'6 (4.70-6.10); RED CELL DISTRIBUTION WIDTH 14.3 % (11.5-14.5); WHITE BLOOD COUNT 6.8 X10'3 (4.5-11.0)
[2019-12-20 05:12] LABS: ALBUMIN 2.9 G/DL (3.4-5.0); ANION GAP 6 (8-16); BLOOD UREA NITROGEN 20 MG/DL (7-18); BUN/CREATININE RATIO 13.6 (5.4-32.0); CALCIUM 8.5 MG/DL (8.5-10.1); CHLORIDE 104 MMOL/L (99-107); CREATININE 1.47 MG/DL (0.60-1.10); GLUCOSE 132 MG/DL (70-104); SODIUM 141 MMOL/L (135-145); TOTAL CARBON DIOXIDE 30.9 MMOL/L (24-32); eGFR 48 ML/MIN
[2019-12-20 05:16] LABS: POTASSIUM 4.6 MMOL/L (3.5-5.1)
[2019-12-20 06:00] VITALS: BP 138/97
--- NOTE | 2019-12-20 06:01 | NUR ---
Problems reprioritized. Patient report given, questions answered & plan of care reviewed with Meli FOOTE and Meena FOOTE.
--- NOTE | 2019-12-20 06:04 | NUR ---
Patient in room PCU 3012. I have received report from Sandra FOOTE and Laura FOOTE and had the opportunity to ask questions and assume patient care.
--- NOTE | 2019-12-20 06:23 | NUR ---
Patient in room PCU 3012. I have received report from Sandra FOOTE and had the opportunity to ask questions and assume patient care. Patient awake and oriented at this time, offers no complaints, will continue to monitor.
[2019-12-20] MEDS: metoclopramide 5 mg/ml inj IV PRN ×2 (06:54→12:06)
[2019-12-20] MEDS: diatr meglu/diatrizoate 30ml oral sol.-(3 dose) bottle PO SCH ×2 (06:54→10:06)
[2019-12-20] MEDS: HYDROcodone/acetaminophen 10/325mg tab PO PRN ×2 (06:55→12:07)
--- NOTE | 2019-12-20 07:47 | NUR ---
Spoke with Dr. Talbot and received an order for NS to run at 100 for light hydration before CT today
[2019-12-20] MEDS ORDERED: normal saline 1000ml 1,000 ML IV SCH (07:50)
[2019-12-20] MEDS: K and/or MAG REPLACEMENT MC SCH (08:00)
[2019-12-20] MEDS ORDERED: iohexol 300mg/ml 100ml inj. ONE (08:47)
--- NOTE | 2019-12-20 10:52 | NUR ---
Page Sent promotional table spacer PAGER ID: [phone] MESSAGE: Deshawn Billingsley. CT results available in [facility]. Meena 6482
[2019-12-20] MEDS: pantoprazole 40mg Tablet.DR PO SCH (11:07)
[2019-12-20] MEDS: levoTHYROXINE 175mcg tablet PO SCH (11:07)
[2019-12-20] MEDS: atorvastatin 20mg tablet PO SCH (11:07)
[2019-12-20] MEDS: ESCITALOPRAM OXALATE 5 MG TABLET PO SCH (11:07)
[2019-12-20] MEDS: gabapentin 100mg capsule PO SCH (11:07)
[2019-12-20] MEDS ORDERED: METO10TA3 PO (11:30)
--- NOTE | 2019-12-20 12:19 | NUR ---
Page Sent PAGER ID: [phone] MESSAGE: [id number] Jose Cruz. Patient needs a return to work form. Can I bring it to you to sign? Meena 5211
--- NOTE | 2019-12-20 15:52 | NUR ---
Patient was discharged to home at 1535. His son picked him up. Discharge instructions and new RXs were reviewed with the patient and he expressed understanding of all directions. [facility] [address] in [place]. PIV was removed with cannula intact. Patient stable at time of discharge.
== END 2019-12-20 15:50 | disposition home or self-care (01) | DRG 638 ==
LOC: ER 21:21 → ED HOLD 12-16 04:05 → SUR 3N 12-16 04:24 → PCU 3S 12-16 15:42 → OBSVTOIN 12-16 17:44
PROVIDERS: ADMIT Internal Medicine; ATTEND Internal Medicine
PROC: BW211ZZ Computerized Tomography (CT Scan) of Abdomen and Pelvis using Low Osmolar Contrast (ICD-10-PCS; principal; 2019-12-20)
DX: E11.649 Type 2 diabetes mellitus with hypoglycemia without coma (principal); I31.3 Pericardial effusion (noninflammatory); J90 Pleural effusion, not elsewhere classified; E11.43 Type 2 diabetes mellitus with diabetic autonomic (poly)neuropathy; N17.9 Acute kidney failure, unspecified; K31.84 Gastroparesis; E11.42 Type 2 diabetes mellitus with diabetic polyneuropathy; E87.6 Hypokalemia; E78.5 Hyperlipidemia, unspecified; I12.9 Hypertensive chronic kidney disease with stage 1 through stage 4 chronic kidney disease, or unspecified chronic kidney disease; N18.9 Chronic kidney disease, unspecified; E11.22 Type 2 diabetes mellitus with diabetic chronic kidney disease; E78.00 Pure hypercholesterolemia, unspecified; E89.0 Postprocedural hypothyroidism; G89.29 Other chronic pain; Z60.2 Problems related to living alone; F41.8 Other specified anxiety disorders; K21.9 Gastro-esophageal reflux disease without esophagitis; M54.9 Dorsalgia, unspecified; Z79.82 Long term (current) use of aspirin; Z79.899 Other long term (current) drug therapy; Z82.49 Family history of ischemic heart disease and other diseases of the circulatory system; Z85.038 Personal history of other malignant neoplasm of large intestine; Z85.6 Personal history of leukemia; Z91.018 Allergy to other foods; Z80.41 Family history of malignant neoplasm of ovary; Z80.59 Family history of malignant neoplasm of other urinary tract organ
CPT/HCPCS: 36415; 71045; 74177; 80048; 80053; 81001; 82948; 83036; 83525; 83605; 83690; 83735; 83880; 84100; 84132; 84145; 84443; 85025; 85610; 85730; 87040; 87081; 93005; 96365; 97110; 97116; 97161; 97530; 99285; G0378; J1815; J2270; J2405; J2765; J3475; J3480; J7030; J8597; Q9963; Q9967

== ENCOUNTER 2020-01-10 11:26 | Inpatient (IN) | payer MEDICARE, MEDICAID ==
[~2020-01-10] VITALS: Ht 188 cm; Wt 130.0 kg
[~2020-01-10 11:26] MED LIST changes: -CARV3.122 PO; -CLIN-5 PO; +CYCL-394 PO; +HYDR-3965 PO; -LEVO25TA7 PO; +LORA-269 PO; +MELO-102 PO; +METO10TA3 PO; +OMEP40CA13 PO
[2020-01-10] MEDS ORDERED: normal saline 1000ML IV soln IVB ONE (11:45)
[2020-01-10] MEDS ORDERED: dextrose 50%-water 50ml dispensing syringe IV ONE ×2 (11:45)
--- NOTE | 2020-01-10 11:45 | NUR ---
Shawn Rosenberg brought to my attention the patient with a blood sugar in the 30s. D50 pulled from [employer] at his verbal order.
[2020-01-10] MEDS ORDERED: ondansetron/PF 4mg/2ml inj IV ONE (11:50)
[2020-01-10] MEDS ORDERED: dextrose 10% 250ml bag IV ONE (12:00)
[2020-01-10] MEDS ORDERED: Dextrose 10%-water IV solution 1,000 ML IV ONE (12:03)
--- NOTE | 2020-01-10 12:03 | NUR ---
D50 and zofran both administered. Scanned in room not working.
[2020-01-10 12:17] LABS: BASOPHILS # (AUTO) 0.1 X10'3 (0-0.2); BASOPHILS % (AUTO) 0.4 % (0-1); EOSINOPHILS % (AUTO) 0.2 % (0-6); HEMATOCRIT 40.2 % (42.0-52.0); HEMOGLOBIN 13.5 g/dl (14.0-17.9); LYMPHOCYTES # (AUTO) 2.3 X10'3 (1.1-4.8); LYMPHOCYTES % (AUTO) 15.9 % (21-51); MEAN CORPUSCULAR HEMOGLOBIN 29.4 PG (27.0-31.0); MEAN CORPUSCULAR HGB CONC 33.6 g/dL (33.0-36.5); MEAN CORPUSCULAR VOLUME 87.5 FL (78-98); MEAN PLATELET VOLUME 8.4 FL (7.4-10.4); MONOCYTES # (AUTO) 1.3 X10'3 (0-0.9); MONOCYTES % (AUTO) 8.9 % (2-12); NEUTROPHILS # (AUTO) 10.9 X10'3 (1.8-7.7); NEUTROPHILS % (AUTO) 74.6 % (42-75); PLATELET COUNT 324 X10'3 (140-440); RED CELL DISTRIBUTION WIDTH 14.6 % (11.5-14.5); WHITE BLOOD COUNT 14.7 X10'3 (4.5-11.0)
[2020-01-10 12:35] LABS: ALANINE AMINOTRANSFERASE 49 U/L (12-78); ALBUMIN 3.7 G/DL (3.4-5.0); ALBUMIN/GLOBULIN RATIO 0.8 (1.1-1.5); ALKALINE PHOSPHATASE 97 IU/L (46-116); ANION GAP 13 (8-16); ASPARTATE AMINO TRANSFERASE 37 U/L (10-37); BILIRUBIN,TOTAL 0.3 MG/DL (0.1-1.0); BLOOD UREA NITROGEN 28 MG/DL (7-18); BUN/CREATININE RATIO 17.9 (5.4-32.0); CALCIUM 9.5 MG/DL (8.5-10.1); CHLORIDE 105 MMOL/L (99-107); CREATININE 1.56 MG/DL (0.60-1.10); ETHANOL < 0.010 GM/DL (0.0-0.010); POTASSIUM 3.5 MMOL/L (3.5-5.1); SODIUM 143 MMOL/L (135-145); TOTAL CARBON DIOXIDE 24.9 MMOL/L (24-32); TOTAL PROTEIN 8.4 G/DL (6.4-8.2); TROPONIN I < 0.04 NG/ML (0.0-0.05); eGFR 45 ML/MIN
[2020-01-10 12:38] LABS: GLUCOSE 43 MG/DL (70-104)
[2020-01-10] MEDS ORDERED: CefTRIAXone 2gm/D5W 50ml 50 ML IV ONE (13:05)
[2020-01-10] MEDS ORDERED: CefTRIAXone inj 2,000 MG in normal saline 100ml IV soln 100 ML IV ONE (13:13)
[2020-01-10] MEDS ORDERED: LINA5TAB4 PO (13:33)
[2020-01-10] MEDS ORDERED: METO-292 PO (13:33)
--- NOTE | 2020-01-10 13:44 | NUR ---
pt still unable to urinate. KIKA Sevilla notified.
[2020-01-10] MEDS ORDERED: normal saline 1000ml 1,000 ML IV SCH (14:17)
[2020-01-10] MEDS ORDERED: potassium CL 10mEq/100ml bag 100 ML IV PRN ×2 (14:20)
[2020-01-10] MEDS ORDERED: potassium Cl 20 mEq SR tablet PO PRN ×2 (14:20)
[2020-01-10] MEDS ORDERED: ondansetron/PF 4mg/2ml inj IV PRN (14:20)
[2020-01-10] MEDS ORDERED: magnesium Cl slow-release 64mg tablet PO PRN (14:20)
[2020-01-10] MEDS ORDERED: magnesium 2GM in 50ml NS 50 ML IV PRN (14:20)
[2020-01-10] MEDS ORDERED: magnesium 4gm in 100ml NS 100 ML IV PRN (14:20)
[2020-01-10] MEDS ORDERED: acetaminophen 325mg tablet PO PRN (14:20)
[2020-01-10 14:26] LABS: CLARITY,URINE SLIGHTLY CLOUDY (Clear); COLOR,URINE YELLOW (Yellow); GLUCOSE, URINE 250 mg/dl (Neg); KETONES,URINE NEGATIVE (Neg); LEUKOCYTE ESTERASE ,URINE NEGATIVE (Neg); NITRITES, URINE NEGATIVE (Neg); OCCULT BLOOD,URINE TRACE-INTACT (Neg); PH,URINE 5.5 (4.8-8.0); PROTEIN,URINE NEGATIVE (Neg); UROBILINOGEN,URINE 0.2 E.U/dL (0.2-1.0)
[2020-01-10 14:31] LABS: UA COLLECTION TYPE STRAIGHT CATH
[2020-01-10 14:32] LABS: URINE AMPHETAMINE SCREEN NEGATIVE (Neg); URINE BARBITUATE SCREEN NEGATIVE (Neg); URINE BENZODIAZEPINES SCREEN NEGATIVE (Neg); URINE CANNABINOID SCREEN NEGATIVE (Neg); URINE COCAINE SCREEN NEGATIVE (Neg); URINE METHADONE SCREEN NEGATIVE (Neg); URINE OPIATE SCREEN NEGATIVE (Neg); URINE PHENCYCLIDINE SCREEN NEGATIVE (Neg)
[2020-01-10 14:46] LABS: HYALINE CASTS 0-3 /LPF (NEGATIVE); MUCUS STRANDS FEW /LPF (Neg); SQUAMOUS EPITHELIAL CELL,UR FEW /LPF (FEW)
[2020-01-10 14:47] LABS: BACTERIA,URINE FEW /HPF (Neg); RBC,URINE 0-2 /HPF (0-2); WBC,URINE 0-4 /HPF (0-4)
--- NOTE | 2020-01-10 16:03 | NUR ---
Patient in room ED 2. I have received report from Mode FOOTE From ED and had the opportunity to ask questions. Awaiting arrival from patient.
--- NOTE | 2020-01-10 16:32 | NUR ---
Assumed care of patient. Tele placed on patient. Blood sugar 118. Vital signs stable. Assessment and 2 RN skin check completed.
[2020-01-10 16:34] VITALS: BP 140/90
--- NOTE | 2020-01-10 16:34 | NUR ---
Sent page to Aura: Timothy Billingsley room 7379C. Patient is NPO. Do you want to switch him to D5W or keep NS? Also hypoglycemic protocol? Allie [phone].
[2020-01-10] MEDS ORDERED: LORazepam 1 MG tablet PO PRN (17:25)
--- NOTE | 2020-01-10 18:00 | NUR ---
Sent page to Dr Chavarria: [id number] Timothy Billingsley, please review CT scan. Do you want to start hypo/hyperglycemic protocol? Allie 4500
--- NOTE | 2020-01-10 18:10 | NUR ---
Patient in room PCU 3026. I have received report from Zohaib FOOTE and had the opportunity to ask questions and assume patient care. Blood sugar check prior to discharge was 119. Pt. eating and offers no complaints at this time.
[2020-01-10] MEDS: amitriptyline 50mg tablet PO SCH (20:27)
[2020-01-10] MEDS: HYDROcodone/acetaminophen 5mg/325mg tablet PO SCH (20:27)
[2020-01-10] MEDS: gabapentin 100mg capsule PO SCH (20:27)
[2020-01-10] MEDS: K and/or MAG REPLACEMENT MC SCH (20:49)
[2020-01-10] MEDS ORDERED: dextrose 5%-normal saline 1,000 ML IV SCH (21:25)
[2020-01-10 23:00] VITALS: BP 121/69
[2020-01-11] VITALS (7 sets, daily range): BP systolic 95–148; BP diastolic 55–93
[2020-01-11] MEDS: cyclobenzaprine 10mg tablet PO SCH ×3 (00:23→15:59)
[2020-01-11] MEDS: HYDROcodone/acetaminophen 5mg/325mg tablet PO SCH ×6 (00:23→20:03)
[2020-01-11] MEDS ORDERED: dextrose 50%-water 50ml dispensing syringe IV ONE ×2 (00:35→01:50)
[2020-01-11] MEDS: sodium chloride inj. 154 MEQ in Dextrose 10%-water IV solution 961.5 ML IV SCH ×3 (02:27→16:01)
[2020-01-11 05:38] LABS: BASOPHILS # (AUTO) 0.1 X10'3 (0-0.2); BASOPHILS % (AUTO) 0.6 % (0-1); EOSINOPHILS # (AUTO) 0.1 X10'3 (0-0.9); EOSINOPHILS % (AUTO) 1.6 % (0-6); HEMATOCRIT 37.4 % (42.0-52.0); HEMOGLOBIN 12.4 g/dl (14.0-17.9); LYMPHOCYTES # (AUTO) 2.5 X10'3 (1.1-4.8); LYMPHOCYTES % (AUTO) 28.5 % (21-51); MEAN CORPUSCULAR HEMOGLOBIN 29.5 PG (27.0-31.0); MEAN CORPUSCULAR HGB CONC 33.2 g/dL (33.0-36.5); MEAN CORPUSCULAR VOLUME 88.7 FL (78-98); MEAN PLATELET VOLUME 8.8 FL (7.4-10.4); MONOCYTES # (AUTO) 0.7 X10'3 (0-0.9); MONOCYTES % (AUTO) 7.8 % (2-12); NEUTROPHILS # (AUTO) 5.3 X10'3 (1.8-7.7); NEUTROPHILS % (AUTO) 61.5 % (42-75); PLATELET COUNT 248 X10'3 (140-440); RED BLOOD COUNT 4.22 X10'6 (4.70-6.10); RED CELL DISTRIBUTION WIDTH 14.4 % (11.5-14.5); WHITE BLOOD COUNT 8.7 X10'3 (4.5-11.0)
[2020-01-11 05:39] LABS: ALBUMIN 2.8 G/DL (3.4-5.0); ANION GAP 8 (8-16); BLOOD UREA NITROGEN 19 MG/DL (7-18); BUN/CREATININE RATIO 16.8 (5.4-32.0); CALCIUM 8.4 MG/DL (8.5-10.1); CHLORIDE 108 MMOL/L (99-107); CREATININE 1.13 MG/DL (0.60-1.10); GLUCOSE 77 MG/DL (70-104); MAGNESIUM 1.9 MG/DL (1.5-2.4); POTASSIUM 3.8 MMOL/L (3.5-5.1); SODIUM 143 MMOL/L (135-145); TOTAL CARBON DIOXIDE 27.3 MMOL/L (24-32); eGFR 65 ML/MIN
--- NOTE | 2020-01-11 06:15 | NUR ---
Patient in room PCU 3026. I have received report from Zohaib FOOTE and had the opportunity to ask questions and assume patient care. Patient awake and resting comfortably watching TV.
--- NOTE | 2020-01-11 06:30 | NUR ---
Patient in room PCU 3026. I have received report from DARY Penny and had the opportunity to ask questions and assume patient care. Checked pt's blood sugar, pt had a low blood sugar of 49, D50 was pushed, as well as paging Dr Sosa to see if she wanted any new orders. I will recheck pt's blood sugar 15 mins after D50 push.
--- NOTE | 2020-01-11 06:43 | NUR ---
Paged Dr Sosa PAGER ID: [phone] MESSAGE: Re: Timothy Billingsley Rm [id number] Pt blood sugar was 49, I pushed D50, he has D10 running at 150ml/hr. Is there anything else you want me to do? Thank you.
[2020-01-11] MEDS ORDERED: glucagon, human recombinant 1mg kit SUBCUT PRN (06:45)
[2020-01-11] MEDS ORDERED: dextrose ORAL solution 15 GM/59 ML bottle PO PRN (06:45)
[2020-01-11] MEDS ORDERED: dextrose 50%-water 50ml dispensing syringe IV PRN ×2 (06:45)
[2020-01-11] MEDS: aspirin 81mg tablet.DR PO SCH (07:47)
[2020-01-11] MEDS: gabapentin 100mg capsule PO SCH ×2 (07:47→20:04)
[2020-01-11] MEDS: atorvastatin 20mg tablet PO SCH (07:47)
[2020-01-11] MEDS: levoTHYROXINE 175mcg tablet PO SCH (07:48)
[2020-01-11] MEDS: ESCITALOPRAM OXALATE 5 MG TABLET PO SCH (07:48)
[2020-01-11] MEDS: levoFLOXACIN-Levaquin 500mg/D5 100 ML IV SCH (07:53)
[2020-01-11] MEDS: K and/or MAG REPLACEMENT MC SCH ×2 (08:00→20:11)
[2020-01-11] MEDS ORDERED: Meloxicam 15 MG TAB PO SCH (08:00)
[2020-01-11] MEDS: pantoprazole 40mg Tablet.DR PO SCH (09:34)
[2020-01-11] MEDS: dextrose ORAL solution 15 GM/59 ML bottle PO PRN ×3 (10:03→10:44)
--- NOTE | 2020-01-11 11:19 | NUR ---
Initial: Pt admitted with hypoglycemia, noted to have a BG of 32 in triage per H&P. Currently receiving NS/dextrose and PRN dextrose. Pt reports he has been struggling with managing his blood sugars for the past 2 days and he is compliant with his medications per H&P. Patient's A1c is 13.3% and was seen by RD at last visit 12/15 for written and verbal DM education and pt was able to verbalize understanding. No further DM education planned at this time however will remain available for further education if needed. RD contact information was provided at last visit. Pt currently on a CHO controlled diet documented with 75-100% PO intake. LB 01/09. Will continue to follow. Recommendations: 1) Continue with CHO controlled diet 2) Monitor need for additional protein for satiety 3) Bowel care PRN 4) Scaled weights per rx Addendum: 01/11/20 at [address] Amended: Links added.
[2020-01-11] MEDS: docusate sod 100mg capsule PO SCH ×2 (12:51→20:03)
[2020-01-11] MEDS: magnesium hydroxide 30ml (MOM) UD suspension PO PRN ×2 (12:51→20:03)
--- NOTE | 2020-01-11 18:13 | NUR ---
Problems reprioritized. Patient report given, questions answered & plan of care reviewed with Zohaib FOOTE. Patient relaxing comftorably in bed, stable on his phone.
--- NOTE | 2020-01-11 18:14 | NUR ---
[place] documentation: I have reviewed and agree with all interventions, assessments performed and documented by DARY Yosuif.
--- NOTE | 2020-01-11 18:14 | NUR ---
Problems reprioritized. Patient report given, questions answered & plan of care reviewed with DARY Penny. All patient needs met at this time.
--- NOTE | 2020-01-11 18:14 | NUR ---
[place] Medication Administration: For this medication-pass time frame, all medication were reviewed, dispensed, administered and documented per hospital policy by DARY Yousif.
[2020-01-11] MEDS: amitriptyline 50mg tablet PO SCH (20:03)
[2020-01-11] MEDS: lactobacillus rhamnosus 10,000 MMU CELLS/CAPSULE PO SCH (20:04)
[2020-01-12] VITALS (7 sets, daily range): BP systolic 120–147; BP diastolic 60–93
[2020-01-12] MEDS: sodium chloride inj. 154 MEQ in Dextrose 10%-water IV solution 961.5 ML IV SCH ×3 (00:53→12:02)
[2020-01-12] MEDS: HYDROcodone/acetaminophen 5mg/325mg tablet PO SCH ×6 (00:53→19:15)
[2020-01-12] MEDS: cyclobenzaprine 10mg tablet PO SCH ×3 (00:54→16:13)
[2020-01-12 05:32] LABS: ALBUMIN 2.5 G/DL (3.4-5.0); ANION GAP 3 (8-16); BLOOD UREA NITROGEN 16 MG/DL (7-18); BUN/CREATININE RATIO 12.4 (5.4-32.0); CALCIUM 7.6 MG/DL (8.5-10.1); CHLORIDE 109 MMOL/L (99-107); CREATININE 1.29 MG/DL (0.60-1.10); GLUCOSE 128 MG/DL (70-104); POTASSIUM 4.2 MMOL/L (3.5-5.1); SODIUM 140 MMOL/L (135-145); TOTAL CARBON DIOXIDE 28.2 MMOL/L (24-32); eGFR 56 ML/MIN
[2020-01-12 05:35] LABS: BASOPHILS # (AUTO) 0.1 X10'3 (0-0.2); EOSINOPHILS # (AUTO) 0.2 X10'3 (0-0.9); EOSINOPHILS % (AUTO) 3.1 % (0-6); HEMATOCRIT 36.6 % (42.0-52.0); LYMPHOCYTES # (AUTO) 2.3 X10'3 (1.1-4.8); LYMPHOCYTES % (AUTO) 38.5 % (21-51); MEAN CORPUSCULAR HEMOGLOBIN 29.1 PG (27.0-31.0); MEAN CORPUSCULAR HGB CONC 32.8 g/dL (33.0-36.5); MEAN CORPUSCULAR VOLUME 88.7 FL (78-98); MEAN PLATELET VOLUME 8.9 FL (7.4-10.4); MONOCYTES # (AUTO) 0.6 X10'3 (0-0.9); NEUTROPHILS # (AUTO) 2.9 X10'3 (1.8-7.7); NEUTROPHILS % (AUTO) 47.4 % (42-75); PLATELET COUNT 240 X10'3 (140-440); RED BLOOD COUNT 4.12 X10'6 (4.70-6.10); RED CELL DISTRIBUTION WIDTH 14.8 % (11.5-14.5)
[2020-01-12 05:59] LABS: WHITE BLOOD COUNT 5.1 X10'3 (4.5-11.0)
--- NOTE | 2020-01-12 06:12 | NUR ---
Patient in room PCU 3026. I have received report from Zohaib FOOTE and had the opportunity to ask questions and assume patient care. Pt. resting in bed watching television comfortably.
--- NOTE | 2020-01-12 06:14 | NUR ---
Patient in room PCU 3026. I have received report from DARY Penny and had the opportunity to ask questions and assume patient care. Pt resting comfortably, watching tv, no needs at this time.
[2020-01-12] MEDS: pantoprazole 40mg Tablet.DR PO SCH (07:48)
[2020-01-12] MEDS: atorvastatin 20mg tablet PO SCH (07:48)
[2020-01-12] MEDS: gabapentin 100mg capsule PO SCH ×2 (07:48→19:16)
[2020-01-12] MEDS: ESCITALOPRAM OXALATE 5 MG TABLET PO SCH (07:49)
[2020-01-12] MEDS: aspirin 81mg tablet.DR PO SCH (07:50)
[2020-01-12] MEDS: docusate sod 100mg capsule PO SCH ×2 (07:50→19:16)
[2020-01-12] MEDS: levoTHYROXINE 175mcg tablet PO SCH (07:50)
[2020-01-12] MEDS: levoFLOXACIN-Levaquin 500mg/D5 100 ML IV SCH (07:51)
[2020-01-12] MEDS: lactobacillus rhamnosus 10,000 MMU CELLS/CAPSULE PO SCH ×2 (07:55→19:14)
[2020-01-12] MEDS: K and/or MAG REPLACEMENT MC SCH ×2 (08:00→19:21)
[2020-01-12] MEDS: magnesium hydroxide 30ml (MOM) UD suspension PO PRN (16:13)
[2020-01-12] MEDS ORDERED: sodium chloride inj. 77 MEQ in Dextrose 10%-water IV solution 980.75 ML IV SCH (16:20)
[2020-01-12] MEDS ORDERED: SODIUM CHLORIDE IV SCH (16:20)
[2020-01-12] MEDS ORDERED: WATER IV SCH (16:20)
[2020-01-12] MEDS ORDERED: DEXTROSE 10% IV SCH (16:20)
[2020-01-12] MEDS ORDERED: DEXTROSE 10 % AND 0.45 % NACL 1,000 ML IV SCH (16:30)
--- NOTE | 2020-01-12 18:18 | NUR ---
[place] Medication Administration: For this medication-pass time frame, all medication were reviewed, dispensed, administered and documented per hospital policy by DARY Yousif.
--- NOTE | 2020-01-12 18:18 | NUR ---
[place] documentation: I have reviewed and agree with all interventions, assessments performed and documented by DARY Yousif.
--- NOTE | 2020-01-12 18:18 | NUR ---
Problems reprioritized. Patient report given, questions answered & plan of care reviewed with Rahul RN. Patient resting comftorably in bed eating dinner, with no signs of distress.
--- NOTE | 2020-01-12 18:19 | NUR ---
Problems reprioritized. Patient report given, questions answered & plan of care reviewed with Rahul RN. Pt eating dinner independently, all pt needs met at this time.
--- NOTE | 2020-01-12 18:30 | NUR ---
Patient in room PCU 3026. I have received report from Zoie FOOTE and had the opportunity to ask questions and assume patient care.
[2020-01-13] MEDS: DEXTROSE 10 % AND 0.45 % NACL 1,000 ML IV SCH ×2 (00:45→10:00)
[2020-01-13] MEDS: cyclobenzaprine 10mg tablet PO SCH ×2 (00:46→07:24)
[2020-01-13] MEDS: HYDROcodone/acetaminophen 5mg/325mg tablet PO SCH ×4 (00:47→12:40)
[2020-01-13 02:00] VITALS: BP 142/74
--- NOTE | 2020-01-13 06:03 | NUR ---
Problems reprioritized. Patient report given, questions answered & plan of care reviewed with Zoie Goode RN.
[2020-01-13 06:11] LABS: ALBUMIN 2.6 G/DL (3.4-5.0); ANION GAP 5 (8-16); BLOOD UREA NITROGEN 18 MG/DL (7-18); BUN/CREATININE RATIO 14.8 (5.4-32.0); CHLORIDE 106 MMOL/L (99-107); CREATININE 1.22 MG/DL (0.60-1.10); GLUCOSE 108 MG/DL (70-104); MAGNESIUM 2.1 MG/DL (1.5-2.4); POTASSIUM 3.9 MMOL/L (3.5-5.1); SODIUM 139 MMOL/L (135-145); TOTAL CARBON DIOXIDE 28.4 MMOL/L (24-32); eGFR 60 ML/MIN
[2020-01-13 06:12] LABS: BASOPHILS % (AUTO) 0.7 % (0-1); EOSINOPHILS # (AUTO) 0.2 X10'3 (0-0.9); HEMATOCRIT 37.6 % (42.0-52.0); HEMOGLOBIN 12.2 g/dl (14.0-17.9); LYMPHOCYTES % (AUTO) 31.3 % (21-51); MEAN CORPUSCULAR HEMOGLOBIN 28.9 PG (27.0-31.0); MEAN CORPUSCULAR HGB CONC 32.5 g/dL (33.0-36.5); MEAN CORPUSCULAR VOLUME 88.8 FL (78-98); MEAN PLATELET VOLUME 8.9 FL (7.4-10.4); MONOCYTES # (AUTO) 0.6 X10'3 (0-0.9); MONOCYTES % (AUTO) 8.9 % (2-12); NEUTROPHILS # (AUTO) 3.6 X10'3 (1.8-7.7); NEUTROPHILS % (AUTO) 56.1 % (42-75); PLATELET COUNT 252 X10'3 (140-440); RED BLOOD COUNT 4.24 X10'6 (4.70-6.10); RED CELL DISTRIBUTION WIDTH 14.5 % (11.5-14.5); WHITE BLOOD COUNT 6.5 X10'3 (4.5-11.0)
--- NOTE | 2020-01-13 06:15 | NUR ---
Patient in room PCU 3026. I have received report from [facility] RN and had the opportunity to ask questions and assume patient care. Patient awake and watching television comfortably in bed.
--- NOTE | 2020-01-13 06:30 | NUR ---
Patient in room PCU 3020I. I have received report from Rahul RN and had the opportunity to ask questions and assume patient care.
[2020-01-13 07:00] VITALS: BP 151/91
[2020-01-13] MEDS: gabapentin 100mg capsule PO SCH (07:23)
[2020-01-13] MEDS: lactobacillus rhamnosus 10,000 MMU CELLS/CAPSULE PO SCH (07:23)
[2020-01-13] MEDS: docusate sod 100mg capsule PO SCH (07:23)
[2020-01-13] MEDS: levoTHYROXINE 175mcg tablet PO SCH (07:23)
[2020-01-13] MEDS: pantoprazole 40mg Tablet.DR PO SCH (07:24)
[2020-01-13] MEDS: atorvastatin 20mg tablet PO SCH (07:24)
[2020-01-13] MEDS: ESCITALOPRAM OXALATE 5 MG TABLET PO SCH (07:24)
[2020-01-13] MEDS: aspirin 81mg tablet.DR PO SCH (07:24)
[2020-01-13] MEDS: levoFLOXACIN-Levaquin 500mg/D5 100 ML IV SCH (07:26)
[2020-01-13 08:00] VITALS: BP_SYST 130; BP_SYST 133; BP_SYST 147; BP_DIAS 83; BP_DIAS 87; BP_DIAS 93
[2020-01-13] MEDS: K and/or MAG REPLACEMENT MC SCH (08:00)
[2020-01-13] MEDS ORDERED: DOCU-148 PO (10:57)
[2020-01-13 11:00] VITALS: BP 133/87
--- NOTE | 2020-01-13 11:23 | NUR ---
Dr. Meza wrote discharge orders for the patient, discussed plan with patient and he is in agreement, however states that son cannot come pick him up until [id number].
[2020-01-13 15:00] VITALS: BP 125/77
--- NOTE | 2020-01-13 15:50 | NUR ---
Per MD order by Dr. Meza, patient is stable for discharge home. Discharge packet printed and reviewed with patient. New prescriptions sent to pharmacy of choice. IV removed, tele removed. All discharge instructions, return precautions, and follow up discussed with patient and he indicated understanding. All questions answered. Patient was given new patient packet by case management for [facility] prior to discharge, to establish follow up with new PCP. Patient sent with all belongings, escorted to lobby to go home with family.
--- NOTE | 2020-01-13 18:27 | NUR ---
[place] Medication Administration: For this medication-pass time frame, all medication were reviewed, dispensed, administered and documented per hospital policy by DARY Yousif
--- NOTE | 2020-01-13 18:27 | NUR ---
[place] documentation: I have reviewed and agree with all interventions, assessments performed and documented by DARY Yousif
[2020-01-14] MEDS ORDERED: methylnaltrexone br 12mg/0.6ml inj***SubQ only SQ SCH (08:00)
== END 2020-01-13 15:50 | disposition home or self-care (01) | DRG 637 ==
LOC: ER 13:59 → ED HOLD 14:17 → PCU 3S 16:12
PROVIDERS: ADMIT Internal Medicine; ATTEND Internal Medicine
DX: E11.649 Type 2 diabetes mellitus with hypoglycemia without coma (principal); G93.41 Metabolic encephalopathy; E03.9 Hypothyroidism, unspecified; E11.42 Type 2 diabetes mellitus with diabetic polyneuropathy; E78.00 Pure hypercholesterolemia, unspecified; K21.9 Gastro-esophageal reflux disease without esophagitis; E78.5 Hyperlipidemia, unspecified; M54.5 Low back pain; I11.9 Hypertensive heart disease without heart failure; Z80.0 Family history of malignant neoplasm of digestive organs; Z85.038 Personal history of other malignant neoplasm of large intestine; Z85.6 Personal history of leukemia; Z85.850 Personal history of malignant neoplasm of thyroid
CPT/HCPCS: 36415; 71045; 74176; 80048; 80053; 80305; 80320; 81001; 82948; 83605; 83735; 84484; 85025; 87040; 87081; 93005; 96365; 96367; 96375; 97161; 97530; 99291; G0378; J0696; J1956; J2405; J7030; J7042; J7131

== ENCOUNTER 2020-01-28 10:07 | Emergency (ER) | payer MEDICARE, MEDICAID ==
[~2020-01-28] VITALS: Ht 167.6 cm; Wt 118.2 kg
[~2020-01-28 10:07] MED LIST changes: -AMIT100T2 PO; +DOCU-148 PO; -MELO-102 PO; +METO-292 PO; -METO10TA3 PO; -ONDA-103 PO
--- NOTE | 2020-01-28 10:34 | NUR ---
2 days ago he was in the shower and fell and the pain has been geting worse and now his fingers are numb. does not know if he hit his head or not and thinks he lost conciusness says he has some pain in the back of his head has tenderniss to the L side of the back of his head no swelling or brusing seen
[2020-01-28] MEDS ORDERED: morphine 2 MG/ML inj. syringe IV ONE (11:20)
[2020-01-28] MEDS ORDERED: iohexol 300mg/ml 100ml inj. ONE (11:33)
[2020-01-28 11:40] LABS: ALBUMIN 3.4 G/DL (3.4-5.0); ANION GAP 6 (8-16); BLOOD UREA NITROGEN 26 MG/DL (7-18); BUN/CREATININE RATIO 20.2 (5.4-32.0); CALCIUM 8.6 MG/DL (8.5-10.1); CHLORIDE 100 MMOL/L (99-107); CREATININE 1.29 MG/DL (0.60-1.10); GLUCOSE 336 MG/DL (70-104); POTASSIUM 4.1 MMOL/L (3.5-5.1); SODIUM 134 MMOL/L (135-145); TOTAL CARBON DIOXIDE 28.4 MMOL/L (24-32); eGFR 56 ML/MIN
[2020-01-28] MEDS ORDERED: MESSAGE TO NURSING PO NR (11:40)
[2020-01-28 11:58] VITALS: BP 150/92
[2020-01-28] MEDS ORDERED: CELE-85 PO (12:32)
== END 2020-01-28 12:42 | disposition home or self-care (01) ==
LOC: ER 10:08
DX: M25.531 Pain in right wrist (principal); E11.42 Type 2 diabetes mellitus with diabetic polyneuropathy; E78.00 Pure hypercholesterolemia, unspecified; I10 Essential (primary) hypertension; K21.9 Gastro-esophageal reflux disease without esophagitis; E03.9 Hypothyroidism, unspecified; G89.29 Other chronic pain; F41.9 Anxiety disorder, unspecified; F32.9 Major depressive disorder, single episode, unspecified; Z90.49 Acquired absence of other specified parts of digestive tract; Z90.89 Acquired absence of other organs; Z98.890 Other specified postprocedural states; Z60.2 Problems related to living alone; Z91.02 Food additives allergy status; Z79.82 Long term (current) use of aspirin; Z79.899 Other long term (current) drug therapy
CPT/HCPCS: 29260; 36415; 73110; 73201; 80048; 96374; 99285; J2270; Q9967

== ENCOUNTER 2020-02-03 11:17 | Emergency (ER) | payer MEDICARE, MEDICAID, OTHER ==
[~2020-02-03] VITALS: Ht 195.6 cm; Wt 118.2 kg
[~2020-02-03 11:17] MED LIST changes: +CELE-85 PO
[2020-02-03 11:34] VITALS: BP 112/76
== END 2020-02-03 13:27 | disposition home or self-care (01) ==
LOC: ER 11:18
DX: M25.531 Pain in right wrist (principal); E11.42 Type 2 diabetes mellitus with diabetic polyneuropathy; E78.00 Pure hypercholesterolemia, unspecified; I10 Essential (primary) hypertension; K21.9 Gastro-esophageal reflux disease without esophagitis; E03.9 Hypothyroidism, unspecified; G89.29 Other chronic pain; F41.9 Anxiety disorder, unspecified; F32.9 Major depressive disorder, single episode, unspecified; Z90.49 Acquired absence of other specified parts of digestive tract; Z90.89 Acquired absence of other organs; Z98.890 Other specified postprocedural states; Z60.2 Problems related to living alone; Z88.8 Allergy status to other drugs, medicaments and biological substances; Z79.82 Long term (current) use of aspirin; Z79.899 Other long term (current) drug therapy
CPT/HCPCS: 99281

== ENCOUNTER 2020-06-21 06:14 | Inpatient (IN) | payer MEDICARE, MEDICAID, OTHER ==
[~2020-06-21] VITALS: Ht 195.6 cm; Wt 109.1 kg
[~2020-06-21 06:14] MED LIST changes: -ESCI20TA45 PO; +ESCI20TA56 PO
--- NOTE | 2020-06-21 06:41 | NUR ---
DR HWANG AT BEDSIDE.
[2020-06-21] MEDS ORDERED: aspirin 81mg tab.chew PO ONE (06:45)
[2020-06-21] MEDS ORDERED: ondansetron/PF 4mg/2ml inj IV ONE (06:45)
[2020-06-21] MEDS: morphine 4 MG/ML inj SYRINge IV PRN ×3 (06:56→16:16)
[2020-06-21 07:09] LABS: BASOPHILS # (AUTO) 0.1 X10'3 (0-0.2); BASOPHILS % (AUTO) 0.9 % (0-1); EOSINOPHILS # (AUTO) 0.2 X10'3 (0-0.9); EOSINOPHILS % (AUTO) 2.1 % (0-6); HEMATOCRIT 41.1 % (42.0-52.0); HEMOGLOBIN 13.8 g/dl (14.0-17.9); LYMPHOCYTES # (AUTO) 2.1 X10'3 (1.1-4.8); LYMPHOCYTES % (AUTO) 29.4 % (21-51); MEAN CORPUSCULAR HGB CONC 33.7 g/dL (33.0-36.5); MEAN CORPUSCULAR VOLUME 89.2 FL (78-98); MEAN PLATELET VOLUME 9.7 FL (7.4-10.4); MONOCYTES # (AUTO) 0.5 X10'3 (0-0.9); MONOCYTES % (AUTO) 6.9 % (2-12); NEUTROPHILS # (AUTO) 4.4 X10'3 (1.8-7.7); NEUTROPHILS % (AUTO) 60.7 % (42-75); PLATELET COUNT 271 X10'3 (140-440); RED BLOOD COUNT 4.61 X10'6 (4.70-6.10); RED CELL DISTRIBUTION WIDTH 14.5 % (11.5-14.5); WHITE BLOOD COUNT 7.2 X10'3 (4.5-11.0)
[2020-06-21 07:11] LABS: D-DIMER 0.23 MG/L FEU (0-0.50)
[2020-06-21 07:14] LABS: ALANINE AMINOTRANSFERASE 37 U/L (12-78); ALBUMIN 3.5 G/DL (3.4-5.0); ALBUMIN/GLOBULIN RATIO 0.8 (1.1-1.5); ALKALINE PHOSPHATASE 99 IU/L (46-116); ANION GAP 12 (8-16); ASPARTATE AMINO TRANSFERASE 23 U/L (10-37); BILIRUBIN,TOTAL 0.4 MG/DL (0.1-1.0); BLOOD UREA NITROGEN 28 MG/DL (7-18); BUN/CREATININE RATIO 19.4 (5.4-32.0); CHLORIDE 101 MMOL/L (99-107); CREATININE 1.44 MG/DL (0.60-1.10); GLUCOSE 284 MG/DL (70-104); POTASSIUM 3.6 MMOL/L (3.5-5.1); SODIUM 138 MMOL/L (135-145); TOTAL CARBON DIOXIDE 24.8 MMOL/L (24-32); eGFR 49 ML/MIN
[2020-06-21 07:21] LABS: MAGNESIUM 1.8 MG/DL (1.5-2.4)
[2020-06-21] MEDS ORDERED: potassium Cl 40MEQ/1/2NS 520ml 520 ML IV PRN ×2 (09:15)
[2020-06-21] MEDS ORDERED: magnesium 2GM in 50ml NS 50 ML IV PRN (09:15)
[2020-06-21] MEDS ORDERED: ondansetron/PF 4mg/2ml inj IV PRN (09:15)
[2020-06-21] MEDS ORDERED: magnesium Cl slow-release 64mg tablet PO PRN (09:15)
[2020-06-21] MEDS ORDERED: aminophylline 250mg/10ml inj. IV PRN (09:15)
[2020-06-21] MEDS ORDERED: nitroGLYCERIN 0.4mg SUBLingual tab SL PRN (09:15)
[2020-06-21] MEDS ORDERED: metoprolol tartrate 1mg/ml inj IV PRN (09:15)
[2020-06-21] MEDS ORDERED: regadenoson 0.4mg/5ml syringe IV ONE (09:15)
[2020-06-21] MEDS ORDERED: acetaminophen 325mg tablet PO PRN ×2 (09:15)
[2020-06-21] MEDS ORDERED: HYDROcodone/acetaminophen 5mg/325mg tablet PO PRN ×2 (09:15→15:10)
[2020-06-21] MEDS ORDERED: potassium Cl 20 mEq SR tablet PO PRN ×2 (09:15)
[2020-06-21] MEDS ORDERED: magnesium 4gm in 100ml NS 100 ML IV PRN (09:15)
--- NOTE | 2020-06-21 10:51 | NUR ---
PT BEDSIDE BG 18, 50% DEXTOSE INJECTION GIVEN IV PUSH GIVEN.
[2020-06-21 11:57] LABS: HEMOGLOBIN A1C 11.7 % (4.5-6.2)
[2020-06-21] MEDS ORDERED: LISI-604 PO (12:33)
[2020-06-21] MEDS ORDERED: NITR0.4T48 SL (12:33)
[2020-06-21] MEDS ORDERED: METO5TAB98 PO (12:37)
[2020-06-21] MEDS ORDERED: CARV3.122 PO (12:37)
[2020-06-21] MEDS ORDERED: MELO-100 PO (12:37)
[2020-06-21] MEDS ORDERED: OMEP-50 PO (12:39)
[2020-06-21] MEDS ORDERED: LINA5TAB4 PO (12:40)
[2020-06-21] MEDS ORDERED: AMIT100T61 PO (12:40)
[2020-06-21] MEDS ORDERED: CITA10TA9 PO (12:40)
[2020-06-21] MEDS ORDERED: IBUP-1985 PO (12:42)
[2020-06-21] MEDS ORDERED: LORazepam 1 MG tablet PO PRN (15:10)
[2020-06-21] MEDS ORDERED: pantoprazole 40mg Tablet.DR PO PRN (15:10)
[2020-06-21] MEDS ORDERED: cyclobenzaprine 10mg tablet PO PRN (15:10)
--- NOTE | 2020-06-21 16:13 | NUR ---
I have received report from DARY Corrigan and had the opportunity to ask questions and assume patient care.
[2020-06-21 16:30] VITALS: BP 134/54
--- NOTE | 2020-06-21 16:30 | NUR ---
Pt arrived to telemetry floor via wheelchair
[2020-06-21 18:00] VITALS: BP 116/75
--- NOTE | 2020-06-21 18:11 | NUR ---
Problems reprioritized. Patient report given, questions answered & plan of care reviewed with DARY Cuellar.
--- NOTE | 2020-06-21 18:39 | NUR ---
Patient in room PCU 3012. I have received report from Zully FOOTE and had the opportunity to ask questions and assume patient care.
[2020-06-21] MEDS: K and/or MAG REPLACEMENT MC SCH (20:00)
[2020-06-21] MEDS: docusate sod 100mg capsule PO SCH (20:14)
[2020-06-21] MEDS: amitriptyline 25mg tablet PO SCH (20:15)
[2020-06-21] MEDS: gabapentin 100mg capsule PO SCH (20:15)
[2020-06-21] MEDS: heparin, porcine 5000 units/ml vial SQ SCH (20:15)
[2020-06-21] MEDS: carVEDilol 3.125mg tablet PO SCH (20:16)
[2020-06-21 20:20] VITALS: BP 121/68
[2020-06-21 22:00] VITALS: BP 112/72
[2020-06-21] MEDS: morphine 2 MG/ML inj. syringe IV PRN (22:58)
[2020-06-22] VITALS (12 sets, daily range): BP systolic 107–145; BP diastolic 59–91
[2020-06-22] MEDS: morphine 2 MG/ML inj. syringe IV PRN (04:28)
--- NOTE | 2020-06-22 06:15 | NUR ---
Patient in room PCU 3012. I have received report from DARY Cuellar and had the opportunity to ask questions and assume patient care.
--- NOTE | 2020-06-22 06:27 | NUR ---
Problems reprioritized. Patient report given, questions answered & plan of care reviewed with Genny RN.
[2020-06-22] MEDS: carVEDilol 3.125mg tablet PO SCH ×2 (08:00→19:53)
[2020-06-22] MEDS: lisinopril 5mg tablet PO SCH (08:00)
[2020-06-22] MEDS: heparin, porcine 5000 units/ml vial SQ SCH ×2 (08:00→19:53)
[2020-06-22] MEDS: linagliptin 5mg tablet PO SCH (08:00)
[2020-06-22] MEDS: docusate sod 100mg capsule PO SCH ×2 (08:00→19:52)
[2020-06-22] MEDS: aspirin 81mg tablet.DR PO SCH (08:00)
[2020-06-22] MEDS: CITALOpram 10mg tablet PO SCH (08:03)
[2020-06-22] MEDS: levoTHYROXINE 175mcg tablet PO SCH (08:03)
--- NOTE | 2020-06-22 09:04 | NUR ---
[facility] Tappx REPORTED HE HAD RECEIVED A CALL FROM FLOOR REPORTING A BLOOD GLUCOSE READING OF 50. TECH ADMINISTERED JUICE @0845 PER INSTRUCTION FROM FLOOR, RECHECK BLOOD GLUCOSE RESULT 31. JUICE X2. SUBSEQUENT RECHECK WAS 41. PT IS ASYMPTOMATIC AT THESE LEVELS. FLOOR RN MADE AWARE OF SITUATION, PT WILL BE SENT UPSTAIRS TO BE FURTHER MANAGED AND TEST CAN RESUME ONCE BLOOD GLUCOSE IS STABLE.
[2020-06-22 09:11] LABS: BASOPHILS % (AUTO) 0.6 % (0-1); EOSINOPHILS # (AUTO) 0.2 X10'3 (0-0.9); EOSINOPHILS % (AUTO) 2.8 % (0-6); HEMATOCRIT 40.1 % (42.0-52.0); HEMOGLOBIN 13.4 g/dl (14.0-17.9); LYMPHOCYTES # (AUTO) 2.2 X10'3 (1.1-4.8); LYMPHOCYTES % (AUTO) 35.2 % (21-51); MEAN CORPUSCULAR HGB CONC 33.5 g/dL (33.0-36.5); MEAN CORPUSCULAR VOLUME 89.8 FL (78-98); MEAN PLATELET VOLUME 9.7 FL (7.4-10.4); MONOCYTES # (AUTO) 0.6 X10'3 (0-0.9); MONOCYTES % (AUTO) 8.8 % (2-12); NEUTROPHILS # (AUTO) 3.3 X10'3 (1.8-7.7); NEUTROPHILS % (AUTO) 52.6 % (42-75); PLATELET COUNT 249 X10'3 (140-440); RED BLOOD COUNT 4.47 X10'6 (4.70-6.10); RED CELL DISTRIBUTION WIDTH 14.5 % (11.5-14.5); WHITE BLOOD COUNT 6.3 X10'3 (4.5-11.0)
[2020-06-22] MEDS ORDERED: dextrose 50%-water 50ml dispensing syringe IV PRN ×2 (09:15)
[2020-06-22] MEDS ORDERED: dextrose ORAL solution 15 GM/59 ML bottle PO PRN ×2 (09:15)
[2020-06-22] MEDS ORDERED: glucagon, human recombinant 1mg kit SUBCUT PRN (09:15)
[2020-06-22 10:01] LABS: ALANINE AMINOTRANSFERASE 36 U/L (12-78); ALBUMIN 3.2 G/DL (3.4-5.0); ALBUMIN/GLOBULIN RATIO 0.7 (1.1-1.5); ALKALINE PHOSPHATASE 83 IU/L (46-116); ANION GAP 6 (8-16); ASPARTATE AMINO TRANSFERASE 26 U/L (10-37); BILIRUBIN,TOTAL 0.4 MG/DL (0.1-1.0); BLOOD UREA NITROGEN 28 MG/DL (7-18); CALCIUM 8.7 MG/DL (8.5-10.1); CHLORIDE 104 MMOL/L (99-107); CHOL/HDL RATIO 4.6 (0.00-4.99); CHOLESTEROL 223 MG/DL (0-200); CREATININE 1.22 MG/DL (0.60-1.10); GLUCOSE 62 MG/DL (70-104); HDL CHOLESTEROL 48 MG/DL (35-60); LDL CHOLESTEROL 132 MG/DL (50-100); POTASSIUM 4.2 MMOL/L (3.5-5.1); SODIUM 139 MMOL/L (135-145); TOTAL PROTEIN 7.5 G/DL (6.4-8.2); TRIGLYCERIDES 187 MG/DL (20-135); eGFR 60 ML/MIN
[2020-06-22] MEDS: K and/or MAG REPLACEMENT MC SCH ×2 (10:23→19:56)
[2020-06-22] MEDS ORDERED: regadenoson 0.4mg/5ml syringe IV PRN (12:55)
--- NOTE | 2020-06-22 15:37 | NUR ---
DM consult, A1c 11.7%, met at bedside and given written DM education handout with verbal review, discussed that his A1c% is lower 13.3% in the summer. Recently has new PCP and was prescribed new DM meds about 2-3 weeks ago. Reports he is eating more fruits and vegetables. No questions or concerns regarding nutrition and DM at this time. Addendum: 06/22/20 at [address] Amended: Links added.
--- NOTE | 2020-06-22 18:20 | NUR ---
Problems reprioritized. Patient report given, questions answered & plan of care reviewed with DARY Cuellar.
--- NOTE | 2020-06-22 18:30 | NUR ---
Problems reprioritized. Patient report given, questions answered & plan of care reviewed with DARY Cuellar.
--- NOTE | 2020-06-22 18:40 | NUR ---
Patient in room PCU 3012. I have received report from Genny FOOTE and had the opportunity to ask questions and assume patient care.
[2020-06-22] MEDS: amitriptyline 25mg tablet PO SCH (19:53)
[2020-06-22] MEDS: gabapentin 100mg capsule PO SCH (19:53)
[2020-06-23 02:00] VITALS: BP 108/70
[2020-06-23 06:00] VITALS: BP 132/76
--- NOTE | 2020-06-23 06:45 | NUR ---
Patient in room PCU 3012. I have received report from Alisa FOOTE and had the opportunity to ask questions and assume patient care.
--- NOTE | 2020-06-23 06:47 | NUR ---
Problems reprioritized. Patient report given, questions answered & plan of care reviewed with Lina FOOTE.
[2020-06-23 07:15] LABS: BASOPHILS % (AUTO) 0.7 % (0-1); EOSINOPHILS # (AUTO) 0.2 X10'3 (0-0.9); EOSINOPHILS % (AUTO) 2.7 % (0-6); HEMATOCRIT 40.7 % (42.0-52.0); HEMOGLOBIN 13.8 g/dl (14.0-17.9); LYMPHOCYTES # (AUTO) 2.4 X10'3 (1.1-4.8); MEAN CORPUSCULAR HEMOGLOBIN 30.7 PG (27.0-31.0); MEAN CORPUSCULAR VOLUME 90.3 FL (78-98); MEAN PLATELET VOLUME 9.4 FL (7.4-10.4); MONOCYTES # (AUTO) 0.5 X10'3 (0-0.9); MONOCYTES % (AUTO) 7.6 % (2-12); NEUTROPHILS # (AUTO) 3.6 X10'3 (1.8-7.7); PLATELET COUNT 265 X10'3 (140-440); RED CELL DISTRIBUTION WIDTH 14.3 % (11.5-14.5); WHITE BLOOD COUNT 6.7 X10'3 (4.5-11.0)
[2020-06-23 07:52] LABS: ALANINE AMINOTRANSFERASE 31 U/L (12-78); ALBUMIN/GLOBULIN RATIO 0.7 (1.1-1.5); ALKALINE PHOSPHATASE 83 IU/L (46-116); ANION GAP 10 (8-16); ASPARTATE AMINO TRANSFERASE 25 U/L (10-37); BILIRUBIN,TOTAL 0.4 MG/DL (0.1-1.0); BLOOD UREA NITROGEN 24 MG/DL (7-18); BUN/CREATININE RATIO 19.5 (5.4-32.0); CALCIUM 8.7 MG/DL (8.5-10.1); CHLORIDE 102 MMOL/L (99-107); CREATININE 1.23 MG/DL (0.60-1.10); GLUCOSE 117 MG/DL (70-104); POTASSIUM 4.5 MMOL/L (3.5-5.1); SODIUM 139 MMOL/L (135-145); TOTAL CARBON DIOXIDE 26.6 MMOL/L (24-32); TOTAL PROTEIN 7.4 G/DL (6.4-8.2); eGFR 59 ML/MIN
[2020-06-23] MEDS: K and/or MAG REPLACEMENT MC SCH (08:00)
[2020-06-23] MEDS: linagliptin 5mg tablet PO SCH (08:00)
--- NOTE | 2020-06-23 09:30 | NUR ---
pt reports pain 7/10 level in L shoulder and lower back, pt appears comfortable. [place] given. Will continue to monitor.
[2020-06-23] MEDS: docusate sod 100mg capsule PO SCH (09:44)
[2020-06-23] MEDS: levoTHYROXINE 175mcg tablet PO SCH (09:44)
[2020-06-23] MEDS: CITALOpram 10mg tablet PO SCH (09:44)
[2020-06-23] MEDS: carVEDilol 3.125mg tablet PO SCH (09:44)
[2020-06-23] MEDS: aspirin 81mg tablet.DR PO SCH (09:45)
[2020-06-23] MEDS: lisinopril 5mg tablet PO SCH (09:45)
[2020-06-23] MEDS: heparin, porcine 5000 units/ml vial SQ SCH (09:46)
[2020-06-23 11:00] VITALS: BP 126/74
--- NOTE | 2020-06-23 12:17 | NUR ---
Pt states he will not have a ride for d/c until 2-3pm due to friend/family working until then. Charge notified.
--- NOTE | 2020-06-23 14:29 | NUR ---
PAGER ID: [phone] MESSAGE: re: room 3012A Timothy Billingsley Making sure you are aware patient Hi was held this a.m. for Blood Glucose 91. at 1200 blood glucose 197. pt d/c'g home. thank you Angela [phone] PCU pt states he will monitor blood glucose at home and refused [employer] earlier due to BG dropping yesterday. petroleum refinery laborer aware. Will continue to monitor.
--- NOTE | 2020-06-23 15:31 | NUR ---
Pt stable and appropriate for d/c. PIV d/c'd cannula intact. Tele d/c'd. Reviewed with patient all d/c instructions, and home meds returned to pt. Pt given opportunity to ask questions, answers provided with pt verbalizing understanding.Pt to call PCP on Thursday, and to call PCP service with any questions.concerns, or return to nearest ED with worsening s/sx, or complications. Pt escorted to front lobby by staff member via w/c with all personal belonging. D/C'd home in private vehicle driven by family member.
--- NOTE | 2020-06-26 09:40 | NUR ---
CASE MANAGEMENT DISCHARGE FOLLOW UP: Telephoned for follow up, no answer, left message with call back number.
== END 2020-06-23 15:31 | disposition home or self-care (01) | DRG 313 ==
LOC: ER 06:15 → ED HOLD 09:14 → PCU 3S 16:54
PROVIDERS: ADMIT Internal Medicine; ATTEND Internal Medicine
PROC: 4A02XM4 Measurement of Cardiac Total Activity, External Approach (ICD-10-PCS; principal; 2020-06-22)
PROC: 3E073KZ Introduction of Other Diagnostic Substance into Coronary Artery, Percutaneous Approach (ICD-10-PCS; 2020-06-22)
DX: R07.89 Other chest pain (principal); E03.9 Hypothyroidism, unspecified; E11.22 Type 2 diabetes mellitus with diabetic chronic kidney disease; E11.42 Type 2 diabetes mellitus with diabetic polyneuropathy; E11.65 Type 2 diabetes mellitus with hyperglycemia; E78.00 Pure hypercholesterolemia, unspecified; E78.5 Hyperlipidemia, unspecified; F32.9 Major depressive disorder, single episode, unspecified; G89.4 Chronic pain syndrome; I12.9 Hypertensive chronic kidney disease with stage 1 through stage 4 chronic kidney disease, or unspecified chronic kidney disease; Z60.2 Problems related to living alone; I25.10 Atherosclerotic heart disease of native coronary artery without angina pectoris; N18.30 Chronic kidney disease, stage 3 unspecified; F41.9 Anxiety disorder, unspecified; K21.9 Gastro-esophageal reflux disease without esophagitis; M54.9 Dorsalgia, unspecified; Z91.018 Allergy to other foods; Z85.038 Personal history of other malignant neoplasm of large intestine; Z85.6 Personal history of leukemia; Z80.0 Family history of malignant neoplasm of digestive organs; Z82.49 Family history of ischemic heart disease and other diseases of the circulatory system; Z80.41 Family history of malignant neoplasm of ovary
CPT/HCPCS: 36415; 71045; 78451; 80053; 80061; 82948; 83036; 83735; 83880; 84484; 85025; 85379; 87081; 93005; 93017; 93306; 93308; 96374; 97116; 97162; 99285; A9500; G0378; J1644; J2270; J2405; J2785

== ENCOUNTER 2020-07-13 13:27 | Emergency (ER) | payer MEDICARE, MEDICAID, OTHER ==
[~2020-07-13] VITALS: Ht 195.6 cm; Wt 118.2 kg
[~2020-07-13 13:27] MED LIST changes: +AMIT100T61 PO; -ATOR40TA71 PO; +CARV3.122 PO; -CELE-85 PO; +CITA10TA9 PO; -DOCU-148 PO; -ESCI20TA56 PO; +IBUP-1985 PO; +LINA5TAB4 PO; +LISI-604 PO; +MELO-100 PO; -METO-292 PO; +METO5TAB98 PO; +NITR0.4T48 SL; +OMEP-50 PO; -OMEP40CA13 PO
[2020-07-13] MEDS ORDERED: dextrose 50%-water 50ml dispensing syringe IV ONE ×2 (14:05→18:05)
[2020-07-13 14:49] LABS: BASOPHILS # (AUTO) 0.1 X10'3 (0-0.2); BASOPHILS % (AUTO) 0.7 % (0-1); EOSINOPHILS # (AUTO) 0.2 X10'3 (0-0.9); EOSINOPHILS % (AUTO) 2.3 % (0-6); HEMATOCRIT 37.7 % (42.0-52.0); HEMOGLOBIN 12.7 g/dl (14.0-17.9); LYMPHOCYTES # (AUTO) 3.2 X10'3 (1.1-4.8); LYMPHOCYTES % (AUTO) 37.8 % (21-51); MEAN CORPUSCULAR HEMOGLOBIN 29.8 PG (27.0-31.0); MEAN CORPUSCULAR HGB CONC 33.7 g/dL (33.0-36.5); MEAN CORPUSCULAR VOLUME 88.6 FL (78-98); MEAN PLATELET VOLUME 9.2 FL (7.4-10.4); MONOCYTES # (AUTO) 0.6 X10'3 (0-0.9); MONOCYTES % (AUTO) 7.1 % (2-12); NEUTROPHILS # (AUTO) 4.5 X10'3 (1.8-7.7); NEUTROPHILS % (AUTO) 52.1 % (42-75); PLATELET COUNT 299 X10'3 (140-440); RED BLOOD COUNT 4.26 X10'6 (4.70-6.10); RED CELL DISTRIBUTION WIDTH 14.4 % (11.5-14.5); WHITE BLOOD COUNT 8.6 X10'3 (4.5-11.0)
[2020-07-13 15:10] LABS: ALANINE AMINOTRANSFERASE 42 U/L (12-78); ALBUMIN 3.5 G/DL (3.4-5.0); ALBUMIN/GLOBULIN RATIO 0.8 (1.1-1.5); ALKALINE PHOSPHATASE 108 IU/L (46-116); ANION GAP 12 (8-16); ASPARTATE AMINO TRANSFERASE 26 U/L (10-37); BILIRUBIN,TOTAL 0.3 MG/DL (0.1-1.0); BLOOD UREA NITROGEN 35 MG/DL (7-18); BUN/CREATININE RATIO 16.3 (5.4-32.0); CALCIUM 8.4 MG/DL (8.5-10.1); CHLORIDE 101 MMOL/L (99-107); CREATININE 2.15 MG/DL (0.60-1.10); GLUCOSE 160 MG/DL (70-104); POTASSIUM 3.2 MMOL/L (3.5-5.1); SODIUM 136 MMOL/L (135-145); TOTAL CARBON DIOXIDE 22.7 MMOL/L (24-32); TOTAL PROTEIN 7.9 G/DL (6.4-8.2); eGFR 31 ML/MIN
[2020-07-13] MEDS ORDERED: potassium Cl 20 mEq SR tablet PO STA (15:35)
[2020-07-13] MEDS ORDERED: normal saline 1000ML IV soln IVB ONE (15:35)
--- NOTE | 2020-07-13 17:25 | NUR ---
WENT TO DC PATIENT, VERY DIAPHORETIC AND LETHARGIC, CHECK BG 26. ERI AWARE, WANTED TO GIVE JUICE AND SANDWICH.
--- NOTE | 2020-07-13 18:37 | NUR ---
BG STILL 26 DR MCKEON ORDERED D50 Addendum: 07/13/20 at 1842 by SALAS AT 1800
[2020-07-13 20:09] VITALS: BP 109/65
== END 2020-07-13 20:05 | disposition home or self-care (01) ==
LOC: ER 13:27
DX: R07.89 Other chest pain (principal); R53.1 Weakness; Z20.828 Contact with and (suspected) exposure to other viral communicable diseases; E11.42 Type 2 diabetes mellitus with diabetic polyneuropathy; I25.10 Atherosclerotic heart disease of native coronary artery without angina pectoris; E78.00 Pure hypercholesterolemia, unspecified; I10 Essential (primary) hypertension; K21.9 Gastro-esophageal reflux disease without esophagitis; E03.9 Hypothyroidism, unspecified; G89.29 Other chronic pain; F41.9 Anxiety disorder, unspecified; F32.9 Major depressive disorder, single episode, unspecified; Z85.038 Personal history of other malignant neoplasm of large intestine; Z90.89 Acquired absence of other organs; Z98.890 Other specified postprocedural states; Z60.2 Problems related to living alone; Z88.8 Allergy status to other drugs, medicaments and biological substances; Z79.82 Long term (current) use of aspirin; Z79.899 Other long term (current) drug therapy
CPT/HCPCS: 36415; 71045; 80053; 82948; 83880; 84484; 85025; 85610; 87635; 93005; 96361; 96374; 96376; 99285; C9803; J7030

== ENCOUNTER 2020-08-15 11:53 | Emergency (ER) | payer MEDICARE, MEDICAID, OTHER ==
[~2020-08-15] VITALS: Ht 195.6 cm; Wt 120.4 kg
[2020-08-15] MEDS ORDERED: ketorolac tromethamine 15mg/ml inj. IM ONE (13:10)
[2020-08-15] MEDS ORDERED: normal saline 1000ML IV soln IVB ONE ×3 (13:20→16:00)
[2020-08-15 14:21] LABS: ALANINE AMINOTRANSFERASE 36 U/L (12-78); ALBUMIN 3.6 G/DL (3.4-5.0); ALBUMIN/GLOBULIN RATIO 0.7 (1.1-1.5); ALKALINE PHOSPHATASE 139 IU/L (46-116); ANION GAP 14 (8-16); ASPARTATE AMINO TRANSFERASE 22 U/L (10-37); BILIRUBIN,TOTAL 0.5 MG/DL (0.1-1.0); BLOOD UREA NITROGEN 56 MG/DL (7-18); BUN/CREATININE RATIO 28.1 (5.4-32.0); CALCIUM 9.2 MG/DL (8.5-10.1); CHLORIDE 90 MMOL/L (99-107); CREATININE 1.99 MG/DL (0.60-1.10); POTASSIUM 5.1 MMOL/L (3.5-5.1); SODIUM 125 MMOL/L (135-145); TOTAL CARBON DIOXIDE 20.9 MMOL/L (24-32); TOTAL PROTEIN 9.1 G/DL (6.4-8.2); eGFR 34 ML/MIN
[2020-08-15] MEDS ORDERED: insulin regular, human 10 units/0.1 ml syringe IV ONE ×2 (14:30→16:00)
[2020-08-15 14:32] LABS: GLUCOSE 606 MG/DL (70-104)
--- NOTE | 2020-08-15 18:30 | NUR ---
PT TALKING ON PHONE WITH SON NOW (WHO WILL BE DC TRANSPORT). PT WITH 200 CC'S LEFT OF BOLUS INFUSION. NEEDS RECHECK OF ACCUCHECK , THEN PT LIKELY PREPARED FOR DC. CURRENT VSS.
[2020-08-15 19:01] VITALS: BP 166/100
== END 2020-08-15 19:03 | disposition home or self-care (01) ==
LOC: ER 11:54
DX: S39.012A Strain of muscle, fascia and tendon of lower back, initial encounter (principal); S29.012A Strain of muscle and tendon of back wall of thorax, initial encounter; E11.65 Type 2 diabetes mellitus with hyperglycemia; E11.42 Type 2 diabetes mellitus with diabetic polyneuropathy; I25.10 Atherosclerotic heart disease of native coronary artery without angina pectoris; E78.00 Pure hypercholesterolemia, unspecified; I10 Essential (primary) hypertension; K21.9 Gastro-esophageal reflux disease without esophagitis; E03.9 Hypothyroidism, unspecified; G89.29 Other chronic pain; F41.9 Anxiety disorder, unspecified; F32.9 Major depressive disorder, single episode, unspecified; Z85.038 Personal history of other malignant neoplasm of large intestine; Z90.89 Acquired absence of other organs; Z98.890 Other specified postprocedural states; Z60.2 Problems related to living alone; Z91.018 Allergy to other foods; Z79.82 Long term (current) use of aspirin; Z79.899 Other long term (current) drug therapy; X58.XXXA Exposure to other specified factors, initial encounter; Y93.89 Activity, other specified; Y92.89 Other specified places as the place of occurrence of the external cause; Y99.8 Other external cause status
CPT/HCPCS: 36415; 76937; 80053; 82948; 96361; 96372; 96374; 96376; 99285; J1815; J1885; J7030

== ENCOUNTER 2021-03-04 17:40 | Emergency (ER) | payer MEDICARE, MEDICAID, OTHER ==
[~2021-03-04] VITALS: Ht 195.6 cm; Wt 122.7 kg
[~2021-03-04 17:40] MED LIST changes: -LISI-604 PO; +LISI-790 PO
[2021-03-04 18:34] VITALS: BP 129/95
[2021-03-04] MEDS ORDERED: normal saline 1000ML IV soln IVB ONE (18:40)
--- NOTE | 2021-03-04 18:41 | NUR ---
BG 408
[2021-03-04 19:23] LABS: BASOPHILS % (AUTO) 0.3 % (0-1); EOSINOPHILS # (AUTO) 0.2 X10'3 (0-0.9); EOSINOPHILS % (AUTO) 1.6 % (0-6); HEMATOCRIT 43.4 % (42.0-52.0); HEMOGLOBIN 14.1 g/dl (14.0-17.9); LYMPHOCYTES # (AUTO) 2.7 X10'3 (1.1-4.8); LYMPHOCYTES % (AUTO) 20.7 % (21-51); MEAN CORPUSCULAR HEMOGLOBIN 28.7 PG (27.0-31.0); MEAN CORPUSCULAR HGB CONC 32.6 g/dL (33.0-36.5); MEAN CORPUSCULAR VOLUME 88.1 FL (78-98); MEAN PLATELET VOLUME 9.3 FL (7.4-10.4); MONOCYTES % (AUTO) 7.6 % (2-12); NEUTROPHILS # (AUTO) 9.2 X10'3 (1.8-7.7); NEUTROPHILS % (AUTO) 69.8 % (42-75); PLATELET COUNT 334 X10'3 (140-440); RED BLOOD COUNT 4.92 X10'6 (4.70-6.10); WHITE BLOOD COUNT 13.2 X10'3 (4.5-11.0)
[2021-03-04 19:31] LABS: CLARITY,URINE CLEAR (Clear); COLOR,URINE YELLOW (Yellow); GLUCOSE, URINE >=1000 mg/dl (Neg); KETONES,URINE NEGATIVE (Neg); LEUKOCYTE ESTERASE ,URINE NEGATIVE (Neg); NITRITES, URINE NEGATIVE (Neg); OCCULT BLOOD,URINE TRACE-INTACT (Neg); PROTEIN,URINE NEGATIVE (Neg); UA COLLECTION TYPE CLN CATCH MIDSTREAM; UROBILINOGEN,URINE 0.2 E.U/dL (0.2-1.0)
[2021-03-04 19:31] LABS: ALANINE AMINOTRANSFERASE 31 U/L (12-78); ALBUMIN 3.6 G/DL (3.4-5.0); ALBUMIN/GLOBULIN RATIO 0.7 (1.1-1.5); ALKALINE PHOSPHATASE 137 IU/L (46-116); ANION GAP 14 (8-16); ASPARTATE AMINO TRANSFERASE 27 U/L (10-37); BILIRUBIN,TOTAL 0.4 MG/DL (0.1-1.0); BLOOD UREA NITROGEN 50 MG/DL (7-18); CALCIUM 8.7 MG/DL (8.5-10.1); CHLORIDE 99 MMOL/L (99-107); CREATININE 2.38 MG/DL (0.60-1.10); GLUCOSE 369 MG/DL (70-104); POTASSIUM 5.1 MMOL/L (3.5-5.1); SODIUM 132 MMOL/L (135-145); TOTAL CARBON DIOXIDE 18.9 MMOL/L (24-32); TOTAL PROTEIN 8.6 G/DL (6.4-8.2); eGFR 28 ML/MIN
[2021-03-04 19:42] LABS: BACTERIA,URINE NONE SEEN /HPF (Neg); RBC,URINE 0-2 /HPF (0-2); SQUAMOUS EPITHELIAL CELL,UR NONE SEEN /LPF (FEW); WBC,URINE 0-4 /HPF (0-4)
[2021-03-04 19:53] LABS: PARTIAL THROMBOPLASTIN TIME 26 SECONDS (22-32)
--- NOTE | 2021-03-04 22:38 | NUR ---
Called for patient- no response in lobby at this time. Appears to have left after triage.
--- NOTE | 2021-03-04 23:32 | NUR ---
Called for patient again in lobby with no response. Seems patient has left.
== END 2021-03-04 23:34 | disposition left against medical advice (07) ==
LOC: ER 17:41
DX: E11.65 Type 2 diabetes mellitus with hyperglycemia (principal); Z53.21 Procedure and treatment not carried out due to patient leaving prior to being seen by health care provider; R42 Dizziness and giddiness; W18.39XA Other fall on same level, initial encounter; Y93.89 Activity, other specified
CPT/HCPCS: 36415; 70450; 72125; 80053; 81001; 82948; 85025; 85610; 85730

== ENCOUNTER 2021-03-14 10:08 | Inpatient (IN) | payer MEDICARE, MEDICAID ==
[~2021-03-14] VITALS: Ht 195.6 cm; Wt 122.7 kg
[2021-03-14] MEDS ORDERED: morphine 4 MG/ML inj SYRINge IV ONE (10:15)
[2021-03-14] MEDS ORDERED: ondansetron/PF 4mg/2ml inj IV ONE (10:15)
[2021-03-14 10:35] LABS: CLARITY,URINE CLEAR (Clear); COLOR,URINE STRAW (Yellow); GLUCOSE, URINE >=1000 mg/dl (Neg); KETONES,URINE NEGATIVE (Neg); LEUKOCYTE ESTERASE ,URINE NEGATIVE (Neg); NITRITES, URINE NEGATIVE (Neg); OCCULT BLOOD,URINE NEGATIVE (Neg); PH,URINE 5.5 (4.8-8.0); PROTEIN,URINE NEGATIVE (Neg); UROBILINOGEN,URINE 0.2 E.U/dL (0.2-1.0)
[2021-03-14 10:46] LABS: UA COLLECTION TYPE VOIDED
[2021-03-14 10:47] LABS: MUCUS STRANDS FEW /LPF (Neg); SQUAMOUS EPITHELIAL CELL,UR FEW /LPF (FEW)
[2021-03-14 10:47] LABS: BASOPHILS # (AUTO) 0.1 X10'3 (0-0.2); BASOPHILS % (AUTO) 0.8 % (0-1); EOSINOPHILS # (AUTO) 0.1 X10'3 (0-0.9); EOSINOPHILS % (AUTO) 0.5 % (0-6); HEMATOCRIT 38.9 % (42.0-52.0); HEMOGLOBIN 12.7 g/dl (14.0-17.9); LYMPHOCYTES # (AUTO) 1.5 X10'3 (1.1-4.8); LYMPHOCYTES % (AUTO) 12.8 % (21-51); MEAN CORPUSCULAR HEMOGLOBIN 28.9 PG (27.0-31.0); MEAN CORPUSCULAR HGB CONC 32.8 g/dL (33.0-36.5); MEAN CORPUSCULAR VOLUME 88.3 FL (78-98); MEAN PLATELET VOLUME 8.8 FL (7.4-10.4); MONOCYTES # (AUTO) 0.7 X10'3 (0-0.9); MONOCYTES % (AUTO) 5.9 % (2-12); NEUTROPHILS # (AUTO) 9.2 X10'3 (1.8-7.7); PLATELET COUNT 372 X10'3 (140-440); RED CELL DISTRIBUTION WIDTH 14.8 % (11.5-14.5); WHITE BLOOD COUNT 11.5 X10'3 (4.5-11.0)
[2021-03-14 10:48] LABS: ALANINE AMINOTRANSFERASE 19 U/L (12-78); ALBUMIN 3.2 G/DL (3.4-5.0); ALBUMIN/GLOBULIN RATIO 0.7 (1.1-1.5); ALKALINE PHOSPHATASE 117 IU/L (46-116); ANION GAP 15 (8-16); ASPARTATE AMINO TRANSFERASE 13 U/L (10-37); BILIRUBIN,TOTAL 0.4 MG/DL (0.1-1.0); BLOOD UREA NITROGEN 53 MG/DL (7-18); BUN/CREATININE RATIO 16.3 (5.4-32.0); CALCIUM 8.4 MG/DL (8.5-10.1); CHLORIDE 101 MMOL/L (99-107); CREATININE 3.26 MG/DL (0.60-1.10); GLUCOSE 401 MG/DL (70-104); POTASSIUM 4.8 MMOL/L (3.5-5.1); SODIUM 134 MMOL/L (135-145); TOTAL CARBON DIOXIDE 17.9 MMOL/L (24-32); TOTAL PROTEIN 7.9 G/DL (6.4-8.2); eGFR 19 ML/MIN
[2021-03-14 10:48] LABS: BACTERIA,URINE 1+ /HPF (Neg); RBC,URINE 0-2 /HPF (0-2); WBC,URINE 20-30 /HPF (0-4)
[2021-03-14 10:52] LABS: BILIRUBIN,DIRECT 0.1 MG/DL (0-0.3); LIPASE 75 U/L (73-393); TROPONIN I < 0.04 NG/ML (0.0-0.05)
[2021-03-14] MEDS ORDERED: CefTRIAXone/D5W-Rocephin 1gm 50 ML IV ONE (12:15)
[2021-03-14] MEDS ORDERED: normal saline 1000ml 1,000 ML IV ONE (12:15)
[2021-03-14] MEDS ORDERED: NOVLG SQ (12:44)
[2021-03-14] MEDS ORDERED: DULO30CA52 PO (12:44)
[2021-03-14] MEDS ORDERED: ATOR40TA72 PO (12:44)
[2021-03-14] MEDS ORDERED: EMPA10TA PO (12:44)
[2021-03-14] MEDS ORDERED: GABA300C PO (12:44)
[2021-03-14] MEDS ORDERED: LEVO200T8 PO (12:44)
[2021-03-14] MEDS ORDERED: magnesium 4gm in 100ml NS 100 ML IV PRN (13:10)
[2021-03-14] MEDS ORDERED: ondansetron/PF 4mg/2ml inj IV PRN (13:10)
[2021-03-14] MEDS ORDERED: potassium Cl 20 mEq SR tablet PO PRN ×2 (13:10)
[2021-03-14] MEDS ORDERED: magnesium Cl slow-release 64mg tablet PO PRN (13:10)
[2021-03-14] MEDS ORDERED: potassium Cl 40MEQ/1/2NS 520ml 520 ML IV PRN ×2 (13:10)
[2021-03-14] MEDS ORDERED: magnesium 2GM in 50ml NS 50 ML IV PRN (13:10)
[2021-03-14] MEDS ORDERED: CYCL-1 PO (13:19)
[2021-03-14] MEDS ORDERED: INSU200I4 SQ (13:19)
[2021-03-14] MEDS: K and/or MAG REPLACEMENT MC SCH (20:00)
[2021-03-14] MEDS: morphine 2 MG/ML inj. syringe IV PRN (20:29)
[2021-03-15 01:58] LABS: BASOPHILS # (AUTO) 0.1 X10'3 (0-0.2); BASOPHILS % (AUTO) 0.7 % (0-1); EOSINOPHILS # (AUTO) 0.3 X10'3 (0-0.9); EOSINOPHILS % (AUTO) 3.1 % (0-6); HEMATOCRIT 36.8 % (42.0-52.0); HEMOGLOBIN 12.3 g/dl (14.0-17.9); LYMPHOCYTES # (AUTO) 2.8 X10'3 (1.1-4.8); LYMPHOCYTES % (AUTO) 30.4 % (21-51); MEAN CORPUSCULAR HEMOGLOBIN 28.9 PG (27.0-31.0); MEAN CORPUSCULAR HGB CONC 33.4 g/dL (33.0-36.5); MEAN CORPUSCULAR VOLUME 86.5 FL (78-98); MEAN PLATELET VOLUME 8.2 FL (7.4-10.4); MONOCYTES # (AUTO) 0.7 X10'3 (0-0.9); MONOCYTES % (AUTO) 7.6 % (2-12); NEUTROPHILS # (AUTO) 5.4 X10'3 (1.8-7.7); NEUTROPHILS % (AUTO) 58.2 % (42-75); PLATELET COUNT 346 X10'3 (140-440); RED BLOOD COUNT 4.25 X10'6 (4.70-6.10); RED CELL DISTRIBUTION WIDTH 14.6 % (11.5-14.5); WHITE BLOOD COUNT 9.4 X10'3 (4.5-11.0)
[2021-03-15 02:00] LABS: ALBUMIN 2.9 G/DL (3.4-5.0); ANION GAP 12 (8-16); BLOOD UREA NITROGEN 43 MG/DL (7-18); BUN/CREATININE RATIO 17.4 (5.4-32.0); CALCIUM 8.4 MG/DL (8.5-10.1); CHLORIDE 107 MMOL/L (99-107); CREATININE 2.47 MG/DL (0.60-1.10); GLUCOSE 125 MG/DL (70-104); POTASSIUM 4.3 MMOL/L (3.5-5.1); SODIUM 144 MMOL/L (135-145); TOTAL CARBON DIOXIDE 24.8 MMOL/L (24-32); eGFR 26 ML/MIN
[2021-03-15] MEDS: K and/or MAG REPLACEMENT MC SCH ×2 (08:00→20:00)
[2021-03-15] MEDS ORDERED: nitroGLYCERIN 0.4mg SUBLingual tab SL PRN (08:25)
[2021-03-15] MEDS ORDERED: pantoprazole 40mg Tablet.DR PO PRN ×2 (08:44→08:45)
[2021-03-15] MEDS: aspirin 81mg, enteric-coated 1 TAB TABLET.DR PO SCH (09:15)
[2021-03-15] MEDS: lisinopril 5mg tablet PO SCH (09:17)
[2021-03-15] MEDS: levoTHYROXINE 100mcg tablet PO SCH (09:18)
[2021-03-15] MEDS: gabapentin 300mg capsule PO SCH ×2 (13:00→21:07)
--- NOTE | 2021-03-15 15:50 | NUR ---
pt arrive from ed by tihago, /ox3, bs positive, f/c bello arreaga, says no bm for 2 weeks and norm is QOD. abd firm without distention. deny sob
[2021-03-15 16:20] VITALS: BP 174/102
[2021-03-15] MEDS: morphine 2 MG/ML inj. syringe IV PRN ×2 (16:27→21:08)
--- NOTE | 2021-03-15 16:38 | NUR ---
PAGER ID: [phone] MESSAGE: [id number] Pt verbally c/o breakthrough pain. He has Morphine 1mg q2hr. His last dose was 1hr 15 min ago. Please advise . Denice [phone] I received a prompt call from Dr Bell who said she is covering this patient for Aura and received orders. Pt informe dme of his lack of BM for 2wks during my assessment and that his normal routine is QOD. ABd distended and c/o abd pain to RLQ which started 2 days ago
[2021-03-15 16:53] VITALS: BP 160/84
[2021-03-15 18:00] VITALS: BP 152/100
--- NOTE | 2021-03-15 18:36 | NUR ---
Patient in room PCU 3026. I have received report from Balwinder FOOTE and had the opportunity to ask questions and assume patient care.
[2021-03-15] MEDS ORDERED: AMITRIPTYLINE HCL PO SCH (21:00)
[2021-03-15] MEDS: docusate sod 100mg capsule PO SCH (21:07)
[2021-03-15] MEDS: duloxetine 30mg CAPSULE.DR PO SCH (21:07)
[2021-03-15] MEDS: amitriptyline 50mg tablet PO SCH (21:23)
[2021-03-15 22:00] VITALS: BP 147/98
--- NOTE | 2021-03-15 22:40 | NUR ---
Gave pt Eunice garcia per MD orders. Pt is A/Ox4 and steady on his feet. There is a BSC at his bedside. Addendum: 03/16/21 at 0035 by Myriam Daniels RN Golden garcia
[2021-03-16 02:00] VITALS: BP 98/62
[2021-03-16] MEDS: morphine 2 MG/ML inj. syringe IV PRN ×2 (05:22→08:14)
[2021-03-16 06:00] VITALS: BP 138/91
--- NOTE | 2021-03-16 06:19 | NUR ---
Problems reprioritized. Patient report given, questions answered & plan of care reviewed with Meli FOOTE.
[2021-03-16 06:42] LABS: BASOPHILS # (AUTO) 0.1 X10'3 (0-0.2); BASOPHILS % (AUTO) 0.7 % (0-1); EOSINOPHILS # (AUTO) 0.3 X10'3 (0-0.9); EOSINOPHILS % (AUTO) 2.7 % (0-6); HEMATOCRIT 39.2 % (42.0-52.0); HEMOGLOBIN 12.9 g/dl (14.0-17.9); LYMPHOCYTES # (AUTO) 3.1 X10'3 (1.1-4.8); LYMPHOCYTES % (AUTO) 31.8 % (21-51); MEAN PLATELET VOLUME 8.4 FL (7.4-10.4); MONOCYTES # (AUTO) 0.7 X10'3 (0-0.9); MONOCYTES % (AUTO) 7.6 % (2-12); NEUTROPHILS # (AUTO) 5.5 X10'3 (1.8-7.7); NEUTROPHILS % (AUTO) 57.2 % (42-75); PLATELET COUNT 340 X10'3 (140-440); RED BLOOD COUNT 4.45 X10'6 (4.70-6.10); RED CELL DISTRIBUTION WIDTH 14.9 % (11.5-14.5); WHITE BLOOD COUNT 9.7 X10'3 (4.5-11.0)
[2021-03-16 06:48] LABS: ALBUMIN 2.8 G/DL (3.4-5.0); ANION GAP 11 (8-16); BLOOD UREA NITROGEN 45 MG/DL (7-18); BUN/CREATININE RATIO 21.3 (5.4-32.0); CALCIUM 8.3 MG/DL (8.5-10.1); CHLORIDE 103 MMOL/L (99-107); CREATININE 2.11 MG/DL (0.60-1.10); GLUCOSE 287 MG/DL (70-104); POTASSIUM 4.5 MMOL/L (3.5-5.1); SODIUM 138 MMOL/L (135-145); TOTAL CARBON DIOXIDE 23.6 MMOL/L (24-32); eGFR 32 ML/MIN
[2021-03-16 07:27] LABS: HEMOGLOBIN A1C 9.4 % (4.5-6.2)
[2021-03-16] MEDS: K and/or MAG REPLACEMENT MC SCH ×2 (08:00→20:00)
[2021-03-16] MEDS: lisinopril 5mg tablet PO SCH (08:12)
[2021-03-16] MEDS: gabapentin 300mg capsule PO SCH ×3 (08:12→21:09)
[2021-03-16] MEDS: docusate sod 100mg capsule PO SCH ×2 (08:12→21:08)
[2021-03-16] MEDS: atorvastatin 20mg tablet PO SCH (08:12)
[2021-03-16] MEDS: aspirin 81mg, enteric-coated 1 TAB TABLET.DR PO SCH (08:12)
[2021-03-16] MEDS: cyclobenzaprine 10mg tablet PO PRN ×2 (08:13→13:40)
[2021-03-16] MEDS: duloxetine 30mg CAPSULE.DR PO SCH ×2 (08:13→21:08)
[2021-03-16] MEDS: levoTHYROXINE 100mcg tablet PO SCH (08:13)
--- NOTE | 2021-03-16 08:27 | NUR ---
page to start DM protocol PAGER ID: [phone] MESSAGE: room 3026B Timothy Billingsley, pt A1C was 9.4 as of 03/16, AM BS is 227. may I start diabetic protocols? Thank you, Meli FOOTE [phone]
[2021-03-16] MEDS ORDERED: glucagon, human recombinant 1mg kit SUBCUT PRN (09:10)
[2021-03-16] MEDS ORDERED: dextrose ORAL solution 15 GM/59 ML bottle PO PRN ×2 (09:10)
[2021-03-16] MEDS ORDERED: dextrose 50%-water 50ml dispensing syringe IV PRN ×2 (09:10)
[2021-03-16] MEDS: insulin Lispro (HumaLOG) vial - multi-dose SQ SCH ×3 (10:46→19:09)
[2021-03-16 11:00] VITALS: BP 114/74
[2021-03-16] MEDS: bisacodyl 5mg tablet.DR PO PRN ×2 (11:25→21:08)
[2021-03-16] MEDS: HYDROcodone/acetaminophen 5mg/325mg tablet PO PRN ×2 (14:02→21:09)
--- NOTE | 2021-03-16 14:19 | NUR ---
DM consult: Pt with A1c 9.4%, attempted visit with pt at bedside however pt unavailable. Will attempt education at another time. Noted patient's A1c is downtrending, previously 13.3% 12/16/2019 and 11.7% 06/21/2020 per EMR. Pt on a CHO controlled diet documented with 100% PO intake at two documented meals. Will continue to follow and monitor need for double protein for satiety. Addendum: 03/16/21 at [address] Amended: Links added.
[2021-03-16 15:00] VITALS: BP 103/72
[2021-03-16 18:00] VITALS: BP 111/76
[2021-03-16] MEDS: insulin glargine (Lantus) pen - multi-dose SQ SCH (21:07)
[2021-03-16] MEDS: amitriptyline 50mg tablet PO SCH (21:10)
[2021-03-16 22:00] VITALS: BP 93/63
[2021-03-17 02:00] VITALS: BP 127/80
--- NOTE | 2021-03-17 04:07 | NUR ---
reviewed and edited assessment.
[2021-03-17] MEDS: HYDROcodone/acetaminophen 5mg/325mg tablet PO PRN ×3 (06:03→20:25)
--- NOTE | 2021-03-17 06:17 | NUR ---
Problems reprioritized. Patient report given, questions answered & plan of care reviewed with DARY Garrison.
--- NOTE | 2021-03-17 06:17 | NUR ---
Patient in room PCU 3026. I have received report from Neema FOOTE and had the opportunity to ask questions and assume patient care.
[2021-03-17 06:31] LABS: BASOPHILS # (AUTO) 0.1 X10'3 (0-0.2); BASOPHILS % (AUTO) 1.2 % (0-1); EOSINOPHILS # (AUTO) 0.4 X10'3 (0-0.9); EOSINOPHILS % (AUTO) 4.1 % (0-6); HEMATOCRIT 39.7 % (42.0-52.0); LYMPHOCYTES % (AUTO) 33.3 % (21-51); MEAN CORPUSCULAR HEMOGLOBIN 28.6 PG (27.0-31.0); MEAN CORPUSCULAR HGB CONC 32.7 g/dL (33.0-36.5); MEAN CORPUSCULAR VOLUME 87.6 FL (78-98); MEAN PLATELET VOLUME 8.5 FL (7.4-10.4); MONOCYTES # (AUTO) 0.6 X10'3 (0-0.9); MONOCYTES % (AUTO) 6.8 % (2-12); NEUTROPHILS # (AUTO) 4.9 X10'3 (1.8-7.7); NEUTROPHILS % (AUTO) 54.6 % (42-75); PLATELET COUNT 351 X10'3 (140-440); RED BLOOD COUNT 4.53 X10'6 (4.70-6.10); RED CELL DISTRIBUTION WIDTH 14.8 % (11.5-14.5)
[2021-03-17 06:41] LABS: ALBUMIN 2.8 G/DL (3.4-5.0); ANION GAP 7 (8-16); BLOOD UREA NITROGEN 41 MG/DL (7-18); BUN/CREATININE RATIO 22.2 (5.4-32.0); CALCIUM 8.3 MG/DL (8.5-10.1); CHLORIDE 105 MMOL/L (99-107); CREATININE 1.85 MG/DL (0.60-1.10); GLUCOSE 151 MG/DL (70-104); MAGNESIUM 1.9 MG/DL (1.5-2.4); POTASSIUM 5.3 MMOL/L (3.5-5.1); SODIUM 137 MMOL/L (135-145); TOTAL CARBON DIOXIDE 24.7 MMOL/L (24-32); eGFR 37 ML/MIN
[2021-03-17] MEDS: atorvastatin 20mg tablet PO SCH (07:51)
[2021-03-17] MEDS: cyclobenzaprine 10mg tablet PO PRN (07:51)
[2021-03-17] MEDS: aspirin 81mg, enteric-coated 1 TAB TABLET.DR PO SCH (07:51)
[2021-03-17] MEDS: docusate sod 100mg capsule PO SCH ×2 (07:52→20:24)
[2021-03-17] MEDS: lisinopril 5mg tablet PO SCH (07:52)
[2021-03-17] MEDS: duloxetine 30mg CAPSULE.DR PO SCH ×2 (07:52→20:24)
[2021-03-17] MEDS: levoTHYROXINE 100mcg tablet PO SCH (07:52)
[2021-03-17] MEDS: gabapentin 300mg capsule PO SCH ×3 (07:52→20:24)
[2021-03-17] MEDS: K and/or MAG REPLACEMENT MC SCH ×2 (08:00→20:00)
[2021-03-17] MEDS: insulin Lispro (HumaLOG) vial - multi-dose SQ SCH ×3 (08:53→19:21)
--- NOTE | 2021-03-17 13:37 | NUR ---
DM consult: Pt with A1c 9.4%, previously 13.3% 12/16/2019 and 11.7% 06/21/2020 per EMR. Provided pt w/ verbal and written DM education w/ RD contact info. Pt receptive of information. Will continue to monitor. Addendum: 03/17/21 at [address] Amended: Links added.
[2021-03-17 18:00] VITALS: BP 136/79
--- NOTE | 2021-03-17 18:25 | NUR ---
Patient in room PCU 3026. I have received report from DARY Garrison and had the opportunity to ask questions and assume patient care.
[2021-03-17] MEDS: amitriptyline 50mg tablet PO SCH (20:25)
[2021-03-17] MEDS: insulin glargine (Lantus) pen - multi-dose SQ SCH (21:13)
[2021-03-17 22:00] VITALS: BP 130/84
[2021-03-17] MEDS: bisacodyl 5mg tablet.DR PO PRN (23:41)
[2021-03-18 04:00] VITALS: BP 118/68
[2021-03-18] MEDS: HYDROcodone/acetaminophen 5mg/325mg tablet PO PRN ×3 (04:17→14:56)
[2021-03-18 06:00] VITALS: BP 101/72
--- NOTE | 2021-03-18 06:10 | NUR ---
Problems reprioritized. Patient report given, questions answered & plan of care reviewed with DARY Garrison.
[2021-03-18 06:12] LABS: BASOPHILS # (AUTO) 0.1 X10'3 (0-0.2); BASOPHILS % (AUTO) 0.9 % (0-1); EOSINOPHILS # (AUTO) 0.3 X10'3 (0-0.9); HEMATOCRIT 42.2 % (42.0-52.0); LYMPHOCYTES # (AUTO) 2.9 X10'3 (1.1-4.8); LYMPHOCYTES % (AUTO) 34.3 % (21-51); MEAN CORPUSCULAR HEMOGLOBIN 29.3 PG (27.0-31.0); MEAN CORPUSCULAR HGB CONC 33.1 g/dL (33.0-36.5); MEAN CORPUSCULAR VOLUME 88.3 FL (78-98); MONOCYTES # (AUTO) 0.6 X10'3 (0-0.9); MONOCYTES % (AUTO) 6.8 % (2-12); NEUTROPHILS # (AUTO) 4.6 X10'3 (1.8-7.7); PLATELET COUNT 337 X10'3 (140-440); RED BLOOD COUNT 4.78 X10'6 (4.70-6.10); RED CELL DISTRIBUTION WIDTH 14.9 % (11.5-14.5); WHITE BLOOD COUNT 8.5 X10'3 (4.5-11.0)
[2021-03-18 06:39] LABS: ALBUMIN 2.9 G/DL (3.4-5.0); ANION GAP 11 (8-16); BLOOD UREA NITROGEN 34 MG/DL (7-18); BUN/CREATININE RATIO 20.6 (5.4-32.0); CALCIUM 8.5 MG/DL (8.5-10.1); CHLORIDE 103 MMOL/L (99-107); CREATININE 1.65 MG/DL (0.60-1.10); GLUCOSE 153 MG/DL (70-104); MAGNESIUM 1.9 MG/DL (1.5-2.4); POTASSIUM 4.4 MMOL/L (3.5-5.1); SODIUM 139 MMOL/L (135-145); TOTAL CARBON DIOXIDE 25.2 MMOL/L (24-32); eGFR 42 ML/MIN
[2021-03-18] MEDS: K and/or MAG REPLACEMENT MC SCH ×2 (08:00→19:38)
[2021-03-18] MEDS: docusate sod 100mg capsule PO SCH ×2 (08:34→19:31)
[2021-03-18] MEDS: gabapentin 300mg capsule PO SCH ×3 (08:34→20:55)
[2021-03-18] MEDS: aspirin 81mg, enteric-coated 1 TAB TABLET.DR PO SCH (08:34)
[2021-03-18] MEDS: lisinopril 5mg tablet PO SCH (08:35)
[2021-03-18] MEDS: levoTHYROXINE 100mcg tablet PO SCH (08:35)
[2021-03-18] MEDS: duloxetine 30mg CAPSULE.DR PO SCH ×2 (08:36→19:32)
[2021-03-18] MEDS: atorvastatin 20mg tablet PO SCH (08:36)
[2021-03-18] MEDS: insulin Lispro (HumaLOG) vial - multi-dose SQ SCH ×2 (08:40→13:25)
[2021-03-18 11:00] VITALS: BP 111/78
[2021-03-18] MEDS: cyclobenzaprine 10mg tablet PO PRN (14:53)
[2021-03-18 15:00] VITALS: BP 124/77
--- NOTE | 2021-03-18 17:48 | NUR ---
page sent regarding BM meds PAGER ID: [phone] MESSAGE: room 3026B Timothy Billingsley pt has not had a BM in >2weeks. may we order MagCitrate for him. Thank You, Meli FOOTE [phone]
[2021-03-18 18:00] VITALS: BP 113/56
[2021-03-18] MEDS: amitriptyline 50mg tablet PO SCH (20:55)
[2021-03-18] MEDS: insulin glargine (Lantus) pen - multi-dose SQ SCH (20:57)
[2021-03-18 22:00] VITALS: BP 106/73
[2021-03-19] MEDS: HYDROcodone/acetaminophen 5mg/325mg tablet PO PRN ×2 (03:18→08:46)
[2021-03-19] MEDS: bisacodyl 5mg tablet.DR PO PRN (03:20)
[2021-03-19 06:00] VITALS: BP 122/86
--- NOTE | 2021-03-19 06:09 | NUR ---
[place] Medication Administration: For this medication-pass time frame, all medication were reviewed, dispensed, administered and documented per hospital policy by DARY Azevedo. [place] documentation: I have reviewed and agree with all interventions, assessments performed and documented by DARY Azevedo.
--- NOTE | 2021-03-19 06:16 | NUR ---
Patient in room [facility] 3026. I have received report from and had the opportunity to ask questions and assume patient care. Addendum: 03/19/21 at 0617 by Jolly Srivastava RN Accidently clicked the wrong button - AMEND
--- NOTE | 2021-03-19 06:17 | NUR ---
Problems reprioritized. Patient report given, questions answered & plan of care reviewed with DARY Jiang.
--- NOTE | 2021-03-19 06:24 | NUR ---
Patient in room PCU 3026. I have received report from Jolly norris and had the opportunity to ask questions and assume patient care.
[2021-03-19 06:40] LABS: ALBUMIN 2.9 G/DL (3.4-5.0); ANION GAP 9 (8-16); BLOOD UREA NITROGEN 38 MG/DL (7-18); BUN/CREATININE RATIO 21.7 (5.4-32.0); CALCIUM 8.7 MG/DL (8.5-10.1); CHLORIDE 104 MMOL/L (99-107); CREATININE 1.75 MG/DL (0.60-1.10); GLUCOSE 185 MG/DL (70-104); POTASSIUM 4.7 MMOL/L (3.5-5.1); SODIUM 140 MMOL/L (135-145); TOTAL CARBON DIOXIDE 27.1 MMOL/L (24-32); eGFR 39 ML/MIN
[2021-03-19 06:48] LABS: BASOPHILS # (AUTO) 0.1 X10'3 (0-0.2); BASOPHILS % (AUTO) 0.6 % (0-1); EOSINOPHILS # (AUTO) 0.3 X10'3 (0-0.9); EOSINOPHILS % (AUTO) 3.3 % (0-6); HEMATOCRIT 41.5 % (42.0-52.0); HEMOGLOBIN 13.6 g/dl (14.0-17.9); LYMPHOCYTES # (AUTO) 3.2 X10'3 (1.1-4.8); LYMPHOCYTES % (AUTO) 31.7 % (21-51); MEAN CORPUSCULAR HGB CONC 32.8 g/dL (33.0-36.5); MEAN CORPUSCULAR VOLUME 88.6 FL (78-98); MONOCYTES # (AUTO) 0.7 X10'3 (0-0.9); NEUTROPHILS # (AUTO) 5.9 X10'3 (1.8-7.7); NEUTROPHILS % (AUTO) 57.4 % (42-75); PLATELET COUNT 336 X10'3 (140-440); RED BLOOD COUNT 4.69 X10'6 (4.70-6.10); RED CELL DISTRIBUTION WIDTH 14.5 % (11.5-14.5); WHITE BLOOD COUNT 10.2 X10'3 (4.5-11.0)
[2021-03-19] MEDS: K and/or MAG REPLACEMENT MC SCH (08:00)
[2021-03-19] MEDS: insulin Lispro (HumaLOG) vial - multi-dose SQ SCH ×2 (08:42→14:02)
[2021-03-19] MEDS: duloxetine 30mg CAPSULE.DR PO SCH (08:44)
[2021-03-19] MEDS: docusate sod 100mg capsule PO SCH (08:44)
[2021-03-19] MEDS: atorvastatin 20mg tablet PO SCH (08:44)
[2021-03-19] MEDS: aspirin 81mg, enteric-coated 1 TAB TABLET.DR PO SCH (08:44)
[2021-03-19] MEDS: levoTHYROXINE 100mcg tablet PO SCH (08:45)
[2021-03-19] MEDS: lisinopril 5mg tablet PO SCH (08:45)
[2021-03-19] MEDS: gabapentin 300mg capsule PO SCH ×2 (08:45→12:45)
[2021-03-19 11:00] VITALS: BP 104/73
--- NOTE | 2021-03-19 11:59 | NUR ---
Page Sent PAGER ID: [phone] MESSAGE: [id number] Jose Cruz, CAN I GET ORDERS FOR A SUPPOSITORY. PT HASNT HAD A BOWEL MOVEMENT IN 3 WEEKS. SINCE 03/01
[2021-03-19] MEDS ORDERED: bisacodyl 10mg suppository rectal RC PRN ×2 (12:10→12:45)
[2021-03-19] MEDS ORDERED: lactulose 20gm/30ml cup PO PRN (12:10)
[2021-03-19] MEDS ORDERED: lactulose 20gm/30ml cup PO ONE (12:25)
--- NOTE | 2021-03-19 12:26 | NUR ---
DISCUSSED WITH CHARGE NURSE DWAYNE ABOUT PTS LBM. WAS ABLE TO GET ORDERS TO HELP PT HAVE A BOWEL MOVEMENT THAT HAD NOT BEEN ORDERED SINCE HE WAS HERE.
--- NOTE | 2021-03-19 14:09 | NUR ---
Initial: Pt admitted w/ back pain and pain while urinating per EMR. Pt was noted to not have had BM since 03/01, though receiving routine colace through LOS. Per documentation, pt able to have BM today w/ use of dulcolax suppository. Pt has still roslyn able to eat 100% of meals on CCHO diet throughout LOS meeting needs. Pt states he is still a little hungry after meals, will send double protein to help w/ satiety. Will continue to monitor. Recs: 1) Continue CCHO diet as tolerated; double protein TID 2) Bowel care per rx 3) Weekly wts Addendum: 03/19/21 at [address] Amended: Links added.
[2021-03-19 15:00] VITALS: BP 111/76
--- NOTE | 2021-03-19 15:40 | NUR ---
PT WAS GIVEN LACTULOSE AND SUPPOSITORY. HE HAD A BOWEL MOVEMENT TODAY 03/19.
--- NOTE | 2021-03-19 16:50 | NUR ---
PT WILL GO HOME (TO [facility]) WITH HIS BAH. NURSE AT [facility] WAS NOTIFIED DUE TO INES OBSTRUCTION
--- NOTE | 2021-03-19 16:52 | NUR ---
Problems reprioritized. Patient report given, questions answered & plan of care reviewed with YESSENIA .
--- NOTE | 2021-03-19 17:42 | NUR ---
pt belongings were gathered, pt was made aware of discharge to [facility], accompanied by [facility] personnel. pt was wheeled down in a wheelchair and iv was DC
[2021-04-02] MEDS ORDERED: UNABLE TO OBTAIN (04:10)
[2021-04-02] MEDS ORDERED: EMPA10TA PO (04:24)
[2021-04-02] MEDS ORDERED: NA P133E4 RC (04:24)
[2021-04-02] MEDS ORDERED: BISA10SU60 RC (04:24)
[2021-04-02] MEDS ORDERED: AMIT-189 PO (04:24)
[2021-04-02] MEDS ORDERED: INSU100V13 SQ (04:24)
[2021-04-02] MEDS ORDERED: METF-436 PO (04:24)
[2021-04-02] MEDS ORDERED: PPD TD (04:24)
[2021-04-02] MEDS ORDERED: DOCU100C40 PO (04:24)
[2021-04-02] MEDS ORDERED: PANT20TA18 PO (04:24)
[2021-04-02] MEDS ORDERED: MAGN400O6 PO (04:24)
[2021-04-02] MEDS ORDERED: HYDR-3965 PO (04:24)
[2021-04-02] MEDS ORDERED: ASPI81TA52 PO (04:24)
== END 2021-03-19 16:30 | DRG 699 ==
LOC: ER 10:09 → ED HOLD 13:11 → PCU 3S 03-15 16:17
PROVIDERS: ADMIT Internal Medicine; ATTEND Internal Medicine
PROC: 0T9B70Z Drainage of Bladder with Drainage Device, Via Natural or Artificial Opening (ICD-10-PCS; principal; 2021-03-14)
DX: N32.0 Bladder-neck obstruction (principal); N17.9 Acute kidney failure, unspecified; N13.30 Unspecified hydronephrosis; I25.10 Atherosclerotic heart disease of native coronary artery without angina pectoris; E78.5 Hyperlipidemia, unspecified; F41.9 Anxiety disorder, unspecified; M54.9 Dorsalgia, unspecified; R26.2 Difficulty in walking, not elsewhere classified; F32.9 Major depressive disorder, single episode, unspecified; I12.9 Hypertensive chronic kidney disease with stage 1 through stage 4 chronic kidney disease, or unspecified chronic kidney disease; K21.9 Gastro-esophageal reflux disease without esophagitis; K59.00 Constipation, unspecified; N18.9 Chronic kidney disease, unspecified; Z60.2 Problems related to living alone; E11.22 Type 2 diabetes mellitus with diabetic chronic kidney disease; E03.9 Hypothyroidism, unspecified; E11.42 Type 2 diabetes mellitus with diabetic polyneuropathy; E78.00 Pure hypercholesterolemia, unspecified; G89.29 Other chronic pain; Z80.0 Family history of malignant neoplasm of digestive organs; Z79.4 Long term (current) use of insulin; Z91.018 Allergy to other foods; Z85.038 Personal history of other malignant neoplasm of large intestine; Z85.6 Personal history of leukemia; Z82.49 Family history of ischemic heart disease and other diseases of the circulatory system; Z80.49 Family history of malignant neoplasm of other genital organs; Z80.41 Family history of malignant neoplasm of ovary; Z79.899 Other long term (current) drug therapy; Z79.82 Long term (current) use of aspirin
CPT/HCPCS: 36415; 71045; 74176; 80048; 80076; 81001; 82948; 83036; 83690; 83735; 84443; 84484; 85025; 87081; 87635; 93005; 96374; 96375; 97116; 97161; 97530; 99285; G0378; J0696; J1815; J2270; J2405; J7030

== ENCOUNTER 2021-04-08 21:11 | Emergency (ER) | payer MEDICARE, MEDICAID ==
[~2021-04-08] VITALS: Ht 195.6 cm; Wt 127.2 kg
[~2021-04-08 21:11] MED LIST changes: +AMIT-189 PO; -AMIT100T61 PO; -ASPI-611 PO; +ASPI81TA52 PO; +ATOR40TA72 PO; +BISA10SU60 RC; -CARV3.122 PO; -CITA10TA9 PO; +CYCL-1 PO; -CYCL-394 PO; +DOCU100C40 PO; +DULO30CA52 PO; +EMPA10TA PO; -GABA-530 PO; +GABA300C PO; -HYDR-3965 PO; -IBUP-1985 PO; +INSU200I4 SQ; -LEVO175T7 PO; +LEVO200T8 PO; -LINA5TAB4 PO; -LORA-269 PO; +MAGN400O6 PO; -MELO-100 PO; +METF-436 PO; -METO5TAB98 PO; +NA P133E4 RC; +NOVLG SQ
--- NOTE | 2021-04-08 23:25 | NUR ---
pt was seen and dc'd by Dr Kasper, pt remained in care of medics his stay at ER due to no beds being available
[2021-04-08 23:28] VITALS: BP 133/84
== END 2021-04-08 23:34 | disposition home or self-care (01) ==
LOC: ER 21:11
DX: R07.89 Other chest pain (principal); R05.9 Cough, unspecified; E11.42 Type 2 diabetes mellitus with diabetic polyneuropathy; I25.10 Atherosclerotic heart disease of native coronary artery without angina pectoris; E78.00 Pure hypercholesterolemia, unspecified; I10 Essential (primary) hypertension; K21.9 Gastro-esophageal reflux disease without esophagitis; E03.9 Hypothyroidism, unspecified; G89.29 Other chronic pain; F41.9 Anxiety disorder, unspecified; F32.9 Major depressive disorder, single episode, unspecified; Z87.440 Personal history of urinary (tract) infections; Z85.038 Personal history of other malignant neoplasm of large intestine; Z90.89 Acquired absence of other organs; Z98.890 Other specified postprocedural states; Z60.2 Problems related to living alone; Z91.018 Allergy to other foods; Z79.82 Long term (current) use of aspirin; Z79.4 Long term (current) use of insulin; Z79.899 Other long term (current) drug therapy
CPT/HCPCS: 93005; 99283

== ENCOUNTER 2021-05-15 08:53 | Emergency (ER) | payer MEDICAID, MEDICARE ==
[~2021-05-15] VITALS: Ht 188 cm; Wt 120.0 kg
[~2021-05-15 08:53] MED LIST changes: -LISI-790 PO; +LISI5TAB22 PO
[2021-05-15 09:18] VITALS: BP 148/94
== END 2021-05-15 11:06 | disposition left against medical advice (07) ==
LOC: ER 08:53
DX: J00 Acute nasopharyngitis [common cold] (principal); R05.9 Cough, unspecified; R09.89 Other specified symptoms and signs involving the circulatory and respiratory systems; Z53.21 Procedure and treatment not carried out due to patient leaving prior to being seen by health care provider